=== PATIENT | female | born 1945 | race Caucasian/White ===

== ENCOUNTER → 2017-10-15 08:19 | Outpatient (CLI) | payer MEDICARE, SELFPAY ==
--- NOTE | 2017-10-15 08:22 | HPBI_ITS ---
MAMMOGRAPHY - BILATERAL SCREENING REASON FOR EXAM: Female, 72 years old. Routine annual screening examination. PERTINENT HISTORY: Sister with breast cancer. Aunt with breast cancer. TECHNIQUE: Digital bilateral breast jose (3D mammographic acquisition) in the CC and MLO projections. 2-D mediolateral oblique (MLO) and craniocaudad (CC) views of both breasts were obtained. CAD: Full Field Digital Mammography with Computer Added Detection was performed. COMPARISON: Comparison is made with prior study dated September 30, 2016 and April 27, 2012. FINDINGS: Breast Composition: The breasts are almost entirely fatty. There are no dominant masses or suspicious calcifications. No other significant abnormalities are identified. There has been no significant change since the prior study. HPBI/SCREENING MAMM (CAD), BILAT IMPRESSION: Stable bilateral screening mammogram. Yearly follow-up mammogram recommended. (A) ASSESSMENT CATEGORY: BIRADS Category 1: Negative. A letter regarding these results will be sent to the patient by the facility within 30 days. Approximately 10% of breast cancers are not detected by mammography. A normal mammogram should not delay biopsy of a clinically suspicious abnormality. [id number] Electronically Signed: Mario Mishra MD at 14:05 EST Tel [phone], Service support ,
== END ==
PROVIDERS: Family Provider Nurse Practitioner; PCP Nurse Practitioner; Visit Provider Nurse Practitioner
DX: Z12.31 Encounter for screening mammogram for malignant neoplasm of breast (principal)
CPT/HCPCS: 77063; 77067

== ENCOUNTER → 2019-01-03 | Outpatient (CLI) | payer MEDICARE, SELFPAY ==
--- NOTE | 2019-01-03 07:40 | CT_ITS ---
STUDY: CT ABDOMEN WITH AND WITHOUT CONTRAST REASON FOR EXAM: Female, 73 years old. LIVER LESION-3 PHASE LIVER DONE, HTN, ASTHMA, SURG-TUBAL LIGATION, HYSTER, BRIDGER RADIATION DOSAGE (If Supplied By Facility): CTDIvol = ( 19.98 ) mGy, DLP = ( 2098.10 ) mGycm TECHNIQUE: Transaxial images were obtained pre and post I.V. administration of 100 IV Isovue 300, and oral contrast. Sagittal and coronal images were reconstructed. Individualized dose optimization techniques were used for this CT. COMPARISON: None. FINDINGS: The visualized lung bases are unremarkable. The visualized portions of the heart are within normal limits. There are 2 low-attenuation lesions in the liver located respectively in segment #7 and segment #5 measuring respectively 3.8 x 2.8 cm and 1.7 x 1.5 cm. These lesions have enhancement pattern consistent with benign hemangiomas. There is non-visualization of the gallbladder, which may be secondary to either contraction or a prior cholecystectomy. Normal spleen. Normal pancreas. Normal bilateral adrenal glands. Normal right kidney. There is a cyst in left kidney measures 1 cm. Normal visualized stomach. Normal small intestine. Normal colon. The appendix is visualized and appears normal. Normal abdominal aorta. Normal inferior vena cava. Normal retroperitoneum. Normal abdominal wall. Normal osseous structures. CT/Abdomen W/WO IV Contrast IMPRESSION: 2 enhancing lesions in the liver consistent with hemangiomas. There is no evidence of neoplasm. Electronically Signed: Jeremias Baxter, at 2:15 EDT Tel , Service support ,
== END | disposition home or self-care (01) ==
LOC: CT 07:33
PROVIDERS: Family Provider Nurse Practitioner; PCP Nurse Practitioner; Referring Provider Nurse Practitioner; Visit Provider Nurse Practitioner
DX: K76.9 Liver disease, unspecified (principal)
CPT/HCPCS: 74170; Q9967; A4216

== ENCOUNTER → 2019-09-25 07:56 | Outpatient (CLI) | payer MEDICARE, SELFPAY ==
--- NOTE | 2019-09-25 07:59 | CT_ITS ---
STUDY: CT ABDOMEN AND PELVIS WITH CONTRAST REASON FOR EXAM: Female, 74 years old. IBS, HX BLEEDING ULCER RADIATION DOSAGE (If Supplied By Facility): CTDIvol = ( 20.12 ) mGy, DLP = ( 927.74 ) mGycm TECHNIQUE: Transaxial images were obtained from the dome of the diaphragm to the symphysis pubis with oral contrast. Oral and amp; IV Gastrografin and amp; 100mL Isovue-300 was administered. Sagittal and coronal images were reconstructed. Individualized dose optimization techniques were used for this CT. COMPARISON: 04/05/2019 CT scan abdomen FINDINGS: The visualized lung bases are unremarkable. There is partial visualization of a postoperative focus within the heart at the level of the left atrium and ventricle. There is mild intrahepatic duct dilatation. There is a stable low attenuating mass with peripheral enhancement measuring 2.7 x 3.5 cm compatible with a stable hemangioma. There is a similar appearing low attenuating focus within the mid aspect of the right hepatic lobe also stable since prior study. There is non-visualization of the gallbladder, which may be secondary to either contraction or a prior cholecystectomy. Normal spleen. Normal pancreas. Normal bilateral adrenal glands. Normal right kidney. There is an exophytic left renal cyst stable since prior study measuring 9.1 mm. There is a decompressed mildly thick-walled appearance of the stomach. There are minimally distended loops of small bowel. There is mild to moderate stool in the colon. There is contrast in the proximal large bowel. There is a herniation of the small bowel into the infra right side umbilical soft tissues though a small opening that may measure 1.6 cm without evidence of obstruction. This was not seen on the prior study as the prior study was a CT scan of the abdomen only. The appendix is visualized and appears normal. There is partial calcification of the distal aorta and right common iliac artery. Normal inferior vena cava. There is a mild amrik mesentery or fatty infiltrated appearance of the mesentery with minimal edema and a few small stable lymph nodes. Normal urinary bladder. There is absence of the uterus consistent with a prior hysterectomy. Postoperative change in the left side of the pelvis with multiple metallic clips. There is a centrally located fatty umbilical and a right to midline small bowel hernia without evidence of obstruction. The small bowel that extends into this focus measures 2.2 x 1.8 cm. There is multilevel disc space narrowing at L5-S1 there is a broad disc bulge facet arthropathy mild neural foramina narrowing. There is degenerative change of the SI joints. CT/Abdomen/Pelvis WITH Contrast IMPRESSION: Nonspecific mild thick-walled appearance of the stomach which may represent decompression and/or potentially gastritis. There is a small bowel herniation at the level of the right to midline infra umbilical soft tissue without evidence of obstruction. Recommend appropriate follow-up. See image numbers 73 series 2 axial views. Status post hysterectomy postoperative change. Status post cholecystectomy. Benign-appearing stable hemangiomas in the liver. Degenerative change of the thoracolumbar spine. Electronically Signed: Montserrat Alanis MD at 18:07 EST Tel , Service support ,
[2019-09-25 10:06] LABS: CREATININE FINGERSTICK 1.3 mg/dL (0.55-1.02)
== END ==
PROVIDERS: Family Provider Nurse Practitioner; PCP Nurse Practitioner; Referring Provider Nurse Practitioner; Visit Provider Nurse Practitioner
DX: K58.9 Irritable bowel syndrome, unspecified (principal)
CPT/HCPCS: 74177; Q9967

== ENCOUNTER → 2020-12-06 08:28 | Outpatient (CLI) | payer MEDICARE, SELFPAY ==
--- NOTE | 2020-12-06 08:32 | CT_ITS ---
STUDY: CT BRAIN WITHOUT CONTRAST REASON FOR EXAM: Female, 75 years old. Fall one week ago. RADIATION DOSAGE (If Supplied By Facility): CTDIvol = ( 44.99 ) mGy, DLP = ( 745.49 ) mGycm TECHNIQUE: Transaxial CT imaging of the brain was performed without administration of intravenous contrast material. Individualized dose optimization techniques were used for this CT. COMPARISON: No relevant priors. FINDINGS: Normal soft tissue structures. Normal calvarium. There is mild cerebral atrophy with widening of the extra-axial spaces and ventricular dilatation. There are areas of decreased attenuation within the white matter tracts of the supratentorial brain, consistent with microvascular disease changes. Normal basal ganglia and thalami. Normal brainstem. There is mild cerebellar atrophy. There is no intracranial hemorrhage. There are no findings of an acute ischemic infarction. Atherosclerotic plaque formation of the cavernous portions of the internal carotid arteries bilaterally. Partial opacification of the left sphenoid sinus. 1 cm polyp or mucosal retention cyst at the base of the left maxillary sinus. CT/Brain/Head without Contrast IMPRESSION: Chronic involutional changes of the brain. Electronically Signed: Mario Mishra MD at 10:27 EDT , Service support ,
== END ==
PROVIDERS: PCP Nurse Practitioner; Referring Provider Nurse Practitioner; Visit Provider Nurse Practitioner
DX: R27.0 Ataxia, unspecified (principal); W19.XXXA Unspecified fall, initial encounter
CPT/HCPCS: 70450

== ENCOUNTER → 2021-03-26 11:39 | Outpatient (CLI) | payer MEDICARE, SELFPAY ==
--- NOTE | 2021-03-26 11:40 | BD_ITS ---
STUDY: DUAL ENERGY X-RAY ABSORPTIOMETRY / DXA REASON FOR EXAM: Female, 76 years old. [id number]. Patient is postmenopausal. Loss of height. TECHNIQUE: Bone Mineral Density (BMD) measurements of lumbar spine and bilateral hips were obtained. COMPARISON: Comparison is made with prior examination dated 09/30/2016. FINDINGS: Lumbar Spine (L1-L4): g/cm2 (0.686) / T-score (-3.4) / Z-score (-0.8) Findings are suggestive of osteoporosis with a high fracture risk. Left Femur Total: g/cm2 (0.699) / T-score (-2.0) / Z-score (-0.1) Left Femoral Neck: g/cm2 (0.496) / T-score (-3.2) / Z-score (-1.0) Right Femur Total: g/cm2 (0.692) / T-score (-2.1) / Z-score (-0.2) Right Femoral Neck: g/cm2 (0.479) / T-score (-3.3) / Z-score (-1.2) The T-Scores on the most recent prior examination were: Lumbar Spine (L1-L4): There has been worsening of bone density since the previous examination. Left Femur Total: which represents a worsening of 0.3%. Right Femur Total: which represents an improvement of 1.4%. BD/Dexa Bone Density Study IMPRESSION: The patient is considered osteoporotic as outlined below according to World Mario Organization (WHO) criteria with a moderate fracture risk. There has been worsening of bone density since the previous examination. Reference Information: The T-score is the number of standard deviations above or below the standard which is normal for young adults at their peak bone mineral density. The World Health Organization (WHO) interprets the T-scores as follows: Above -1 Normal bone density Between -1 and -2.5 Osteopenia Equal to / or below -2.5 Osteoporosis As a practical clinical guideline, osteopenia may be graded as follows: Mild -1 through -1.5 Moderate -1.6 through -2.0 Severe -2.1 through -2.4 The Z-score is the number of standard deviations above or below age-matched controls. A Z-score of less than -1.5 would be considered abnormal. References: 1. NIH Osteoporosis and Related Bone Diseases www osteo.org 2. International Society for Clinical Densitometry www iscd.org 3. National Osteoporosis Foundation www nof.org Electronically Signed: Mario Mishra MD at 14:56 EDT , Service support ,
--- NOTE | 2021-03-26 11:42 | BI_ITS ---
MAMMOGRAPHY - BILATERAL SCREENING REASON FOR EXAM: Female, 76 years old. Routine annual screening examination. PERTINENT HISTORY: Screening TECHNIQUE: Digital bilateral breast jagruti (3D mammographic acquisition) in the CC and MLO projections. 2-D mediolateral oblique (MLO) and craniocaudad (CC) views of both breasts were obtained. CAD: Full Field Digital Mammography with Computer Added Detection was performed. COMPARISON: 10/15/2018 FINDINGS: Breast Composition: Scattered There are no dominant masses or suspicious calcifications. No other significant abnormalities are identified. BI/SCRN MAMM (CAD)W/JAGRUTI BILAT IMPRESSION: Stable bilateral screening mammogram. Yearly follow-up mammogram recommended. (A) ASSESSMENT CATEGORY: BIRADS Category 1: Negative. A letter regarding these results will be sent to the patient by the facility within 30 days. BR1 Approximately 10% of breast cancers are not detected by mammography. A normal mammogram should not delay biopsy of a clinically suspicious abnormality. [id number] Electronically Signed: Addison Christopher DO at 13:55 EDT Tel , Service support ,
== END ==
PROVIDERS: PCP Nurse Practitioner; Visit Provider Nurse Practitioner
DX: Z12.31 Encounter for screening mammogram for malignant neoplasm of breast (principal); Z78.0 Asymptomatic menopausal state
CPT/HCPCS: 77063; 77067; 77080

== ENCOUNTER → 2022-03-30 | Outpatient (CLI) | payer MEDICARE, SELFPAY ==
--- NOTE | 2022-03-30 08:46 | BI_ITS ---
MAMMOGRAPHY - BILATERAL SCREENING REASON FOR EXAM: Female, 77 years old. Routine annual screening examination. PERTINENT HISTORY: Sister with breast cancer. Aunt with breast cancer. TECHNIQUE: Digital bilateral breast jagruti (3D mammographic acquisition) in the CC and MLO projections. 2-D mediolateral oblique (MLO) and craniocaudad (CC) views of both breasts were obtained. CAD: Full Field Digital Mammography with Computer Added Detection was performed. COMPARISON: Comparison is made with prior study 03/26/2021 and 10/15/2017. FINDINGS: Breast Composition: There are scattered areas of fibroglandular density. There are no dominant masses or suspicious calcifications. Stable small benign-appearing bilateral axillary lymph nodes. No other significant abnormalities are identified. There has been no significant change since the prior study. BI/SCRN MAMM (CAD)W/JAGRUTI BILAT IMPRESSION: Stable bilateral screening mammogram. Yearly follow-up mammogram recommended. (A) ASSESSMENT CATEGORY: BIRADS Category 2: Benign. A letter regarding these results will be sent to the patient by the facility within 30 days. Approximately 10% of breast cancers are not detected by mammography. A normal mammogram should not delay biopsy of a clinically suspicious abnormality. [id number] Electronically Signed: Mario Mishra MD at 11:08 EDT ,
== END | disposition home or self-care (01) ==
LOC: OPBI 08:43
PROVIDERS: PCP Nurse Practitioner; Referring Provider Nurse Practitioner Family; Visit Provider Nurse Practitioner Family
DX: Z12.31 Encounter for screening mammogram for malignant neoplasm of breast (principal)
CPT/HCPCS: 77063; 77067

== ENCOUNTER 2022-06-24 10:38 | Emergency (ER) | payer MEDICARE, SELFPAY ==
[2022-06-24 10:40] VITALS: BP 144/94; PULSE 76; RESP 16; TEMP 36.4; O2SAT 100; BMI 32.1
--- NOTE | 2022-06-24 11:01 | RAD_ITS ---
STUDY: X-RAY - LEFT HUMERUS REASON FOR EXAM: Female, 77 years old. Pain TECHNIQUE: 2 view(s) of the humerus. COMPARISON: None. FINDINGS: Normal visualized humerus. There is no demonstrated fracture or osseous destructive process. There is no demonstrated soft tissue abnormality. RAD/Humerus min 2 Views IMPRESSION: Normal x-ray examination of the humerus. Electronically Signed: Adrian Forrester MD at 12:31 EDT ,
--- NOTE | 2022-06-24 11:03 | EDS_ITS ---
HPI History of Present Illness Chief Complaint: Other, Pain/Inj Detail of Chief Complaint: Left arm pain Informant: patient Onset/Context/Timing Onset: Days (2 days) Context: Gradual Onset Current Severity: Moderate Maximum Severity: Moderate Narrative Narrative: Patient presents with left shoulder, arm, elbow pain that started Wednesday evening. She states he did not do anything strenuous on Wednesday. Area is painful to the touch. She has some pain up into her chest with some intermittent shortness of breath. She is a history of an aortic valve replacement and is on Coumadin. She states her INR was 3.9 on Wednesday. She has not taken anything for pain. [facility] Medical History High cholesterol Hx of gastroesophageal reflux (GERD) Home Medications hydrocodone-acetaminophen 5-325mg 5mg-325mg 1 tab PO Q6H PRN pain 3 days #10 tabs 06/24/22 [Rx Last Taken Unknown] Allergy/AdvReac Type Severity Reaction Status Date / Time adenosine AdvReac Upset Verified 06/24/22 10:42 Stomach Surgical History H/O aortic valve replacement Social History Smoking Status: Never smoker ROS ROS ED Constitutional Constitutional ED: Denies chills or fever(s) Eyes Eyes: Denies change in vision or discharge from eye(s) ENT ENT ED: Denies discharge from eye(s), rhinorrhea or sore throat Cardiovascular Cardiovascular: Reports chest pain; Denies palpitations Respiratory/Chest Respiratory/Chest: Reports dyspnea; Denies cough Gastrointestinal Gastrointestinal: Denies abdominal pain, nausea or vomiting Genitourinary Genitourinary ED: Denies dysuria Musculoskeletal Musculoskeletal: Reports extremity pain; Denies back pain Integumentary Denies Abrasions or rash Neurologic Neurologic: Reports weakness; Denies headache(s) Psychiatric Psychiatric: Denies anxiety or depression Allergic/Immunologic Allergic/Immunologic ED: Denies lip swelling or urticaria EXAM Physical Exam Const Vital Signs: 06/24/22 10:40 06/24/22 12:28 Temperature 97.6 F L Temperature Source Temporal Pulse Rate 76 99 Respiratory Rate 16 16 Blood Pressure 144/94 H 138/82 H Blood Pressure Mean 110 100 Pulse Ox 100 94 Oxygen Delivery Method Room Air Room Air Positive well nourished and well developed General Appearance ED: well developed HEENT Reports normocephalic and head/scalp atraumatic Eyes PERRL and EOMs intact bilaterally Neck supple Chest Wall inspection of chest normal Chest Narrative: Mild tenderness palpation in the left upper chest wall. Resp normal respiratory effort and clear to auscultation bilaterally Cardio regular rate and regular rhythm GI non-tender Palpation: soft Extremity Extremity Narrative: Tenderness outpatient on the left shoulder and left elbow. Slight decreased strength with left hand grasp. Good distal pulses and sensation. Neuro oriented x3 and no sensory deficits noted Sensorium / Orientation: alert Psych mental status grossly normal Skin no rashes or lesions noted MDM MDM MDM Narrative Medical decision making narrative: Patient was given fentanyl for pain. EKG, chest x-ray, lab work obtained. Left humerus x-ray ordered. Lab Data Attestation: I reviewed the patient's lab results. Labs: Laboratory Results - last 24 hr 06/24/22 06/24/22 06/24/22 11:30 11:30 11:30 WBC 12.7 H RBC 4.05 L Hgb 11.4 L Hct 35.8 L MCV 88.4 MCH 28.1 MCHC 31.8 L RDW Std Deviation 44.5 H RDW Coeff of [place] 13.7 Plt Count 265 MPV 10.5 Immature Gran % (Auto) 0.400 Neut % (Auto) 81.9 H Lymph % (Auto) 9.7 L Door % (Auto) 6.7 Eos % (Auto) 1.0 Baso % (Auto) 0.3 Absolute Neuts (auto) 10.4 H Absolute Lymphs (auto) 1.24 Nucleated RBC % 0 PT 27.7 H INR 2.6 Sodium 137 Potassium 4.0 Chloride 104 Carbon Dioxide 28.0 Anion Gap 5 BUN 14 Creatinine 1.26 H Estim Creat Clear Calc 27.77 Est GFR (MDRD) Af Amer 53 L Est GFR (MDRD) Non-Af 44 L BUN/Creatinine Ratio 11.1 Glucose 109 H Calcium 9.3 Troponin I High Sens 10 Radiography Chest X-Ray - ED: 1 View, Read by ED Physician, Chronic Changes and No Infiltrates Diagnostic Testing: Clinical Impression(s) from Imaging Studies Humerus X-Ray 06/24/22 11:01 IMPRESSION: Normal x-ray examination of the humerus. Electronically Signed: Adrian Forrester MD at 12:31 EDT , Chest X-Ray 06/24/22 12:12 IMPRESSION: Chronic interstitial changes, no superimposed acute pulmonary process Electronically Signed: Adrian Forrester MD at 12:31 EDT , EKG Initial EKG: Attestation: I personally reviewed and interpreted this EKG as follows: Interpretation: Sinus Tachycardia (Sinus tach at 101 with no acute ischemia.) Treatment and Re-Evaluation Narrative: CBC reveals mild white count of 12.7 with 81% neutrophils. INR is therapeutic at 2.6. Chemistry studies unremarkable. Troponin is normal at 10. Chest x-ray per my interpretation reveals no focal infiltrate. Radiology interpretation is reviewed. Left humerus x-rays per my interpretation show no acute abnormality. EKG reveals no ischemia. On repeat evaluation patient states she did not really notice any significant difference in her pain. She is given a dose of morphine. This time she reports mild improvement. She has reproducible pain over the left upper arm. She will be given a sling and prescription for [place]. Return instructions provided. Discharge Plan Triage Chief Complaint: Other, Pain/Inj ED Provider: Hattie Nicole Dx/Rx/DC Orders Clinical Impression: Arm pain, left Instructions: ED Muscle Strain, Extremity Prescriptions: New hydrocodone-acetaminophen 5-325 mg tablet 1 tab PO Q6H PRN (Reason: pain) 3 Days Qty: 10 0RF Primary Care Provider: Angelita Duffy Referrals: Angelita Duffy NP-C [Primary Care Provider] - 5-7 Days Abeba Rosa NP, INTERNATIONAL MARKETING COORDINATOR-C [Non-Staff] - Disposition Disposition: Home, Self Care
--- NOTE | 2022-06-24 11:05 | ED.RN ---
RESPIRATORY THERAPY NOTIFIED BY THIS RN OF NEED FOR EKG ON TRIAGE.
[2022-06-24 11:46] LABS: Absolute Lymphocyte Count 1.24 X10^3/uL (0.83-4.51); Absolute Neutrophil Count 10.4 X10^3/uL (2.0-7.7); Basophil# 0.04 X10^3/uL; Basophil% 0.3 % (0-1); Eosinophil# 0.13 X10^3/uL; Hematocrit 35.8 % (37-47); Hemoglobin 11.4 g/dL (12.0-15.0); Lymphocyte # 1.24 X10^3/ul (0.83-4.51); Lymphocyte % 9.7 % (19-41); Mean Corp Hgb Conc 31.8 g/dL (32-36); Mean Corpuscular Hgb 28.1 pg (27.0-32.0); Mean Corpuscular Volume 88.4 fL (81-99); Mean Platelet Vol. 10.5 fl (6.2-12.0); Monocyte# 0.85 X10^3/uL; Monocyte% 6.7 % (0-10); NRBC Flagged by Analyzer 0 % (0-5); Neutrophil # 10.41 X10^3/uL (2.7-7.7); Neutrophil % 81.9 % (47-70); Platelet Count 265 K/mm3 (150-450); RBC Distribution Width CV 13.7 % (11.6-14.6); RBC Distribution Width SD 44.5 fl (35.1-43.9); Red Blood Count 4.05 M/mm3 (4.2-5.4); White Blood Count 12.7 K/mm3 (4.4-11.0)
[2022-06-24 11:55] LABS: International Normalized Ratio 2.6; Prothrombin Time (Protime)PT. 27.7 SECONDS (11.7-14.9)
[2022-06-24 12:05] LABS: Anion Gap 5 (5-15); BUN 14 mg/dL (7-18); BUN/Creat Ratio 11.1 RATIO (10-20); Calcium,Total 9.3 mg/dL (8.5-10.1); Chloride 104 mmol/L (98-107); Creatinine, Serum 1.26 mg/dL (0.55-1.02); EST Glomerular Filtration Rate 44 mL/min (>60); Est Glom Filt Rate - Afr Amer 53 mL/min (>60); Estimated Creatinine Clearance 27.77 ml/min; Glucose 109 mg/dL (74-106); Sodium Level 137 mmol/L (136-145); Troponin-I HS 10 pg/mL (3.0-54.0)
--- NOTE | 2022-06-24 12:12 | RAD_ITS ---
STUDY: X-RAY CHEST REASON FOR EXAM: Female, 77 years old. Atypical chest pain TECHNIQUE: Single AP portable view of the chest. COMPARISON: None. FINDINGS: Chronic interstitial changes without a superimposed acute pulmonary process. There is no demonstrated pleural abnormality. Sternal cerclage wires and vascular clips are present from a prior sternotomy and coronary artery bypass graft procedure (CABG). Normal mediastinum and [place]. Normal visualized pulmonary arteries. Normal visualized aortic arch and descending thoracic aorta. There are diffuse degenerative changes of the visualized thoracic spine. There is degenerative osteoarthritis of the bilateral shoulders. There is no demonstrated abnormality of the visualized soft tissue structures of the upper abdomen. RAD/Chest 1 View (Portable) IMPRESSION: Chronic interstitial changes, no superimposed acute pulmonary process Electronically Signed: Adrian Forrester MD at 12:31 EDT ,
[2022-06-24] MEDS: fentaNYL 100 MCG/2 ML Ampul 25 MCG IV (12:23)
[2022-06-24 12:28] VITALS: BP 138/82; PULSE 99; RESP 16; O2SAT 94
[2022-06-24] MEDS: Morphine 4 MG/ML Syringe IV (13:00)
[2022-06-24 13:42] VITALS: BP 113/62; PULSE 74; RESP 15; O2SAT 98
== END 2022-06-24 13:43 | disposition home or self-care (01) ==
PROVIDERS: Emergency Provider Emergency Medicine; PCP Nurse Practitioner Family; Visit Provider Emergency Medicine
DX: M79.602 Pain in left arm (principal); R06.02 Shortness of breath; E78.00 Pure hypercholesterolemia, unspecified; R07.9 Chest pain, unspecified
CPT/HCPCS: 71045; 73060; 80048; 84484; 85025; 85610; 93005; 96374; 96375; 99284; A4216

== ENCOUNTER 2022-07-15 09:52 | Outpatient (CLI) | payer MEDICARE, SELFPAY ==
[2022-07-15 12:28] LABS: Hematocrit 38.2 % (37-47); Hemoglobin 11.9 g/dL (12.0-15.0); Mean Corp Hgb Conc 31.2 g/dL (32-36); Mean Corpuscular Hgb 27.7 pg (27.0-32.0); Mean Platelet Vol. 10.9 fl (6.2-12.0); Platelet Count 287 K/mm3 (150-450); RBC Distribution Width CV 13.8 % (11.6-14.6); RBC Distribution Width SD 44.7 fl (35.1-43.9); Red Blood Count 4.29 M/mm3 (4.2-5.4); White Blood Count 8.6 K/mm3 (4.4-11.0)
[2022-07-15 13:12] LABS: ALB/GLOB Ratio 1.1 RATIO (0.9-2.4); AST(SGOT) 27 U/L (15-37); Alanine Aminotransfer ALT/SGPT 22 U/L (13-56); Albumin, Serum 3.8 g/dL (3.2-5.0); Alkaline Phosphatase 166 U/L (45-117); Anion Gap 7 (5-15); BUN 20 mg/dL (7-18); BUN/Creat Ratio 14.2 RATIO (10-20); Calcium,Total 9.3 mg/dL (8.5-10.1); Chloride 102 mmol/L (98-107); Creatinine, Serum 1.41 mg/dL (0.55-1.02); EST Glomerular Filtration Rate 38 mL/min (>60); Est Glom Filt Rate - Afr Amer 46 mL/min (>60); Ferritin 86 ng/mL (8-252); Globulin 3.4 g/dL (2.2-4.2); Glucose 122 mg/dL (74-106); Iron 61 ug/dL (50-170); Iron Binding Capacity,Total 313 ug/dL (250-450); Potassium 4.1 mmol/L (3.5-5.1); Protein, Total 7.2 g/dL (6.4-8.2); Sodium Level 141 mmol/L (136-145); T4 Free Direct 0.94 ng/dL (0.76-1.46); Thyroid Stim Hormone (TSH) 3.89 uIU/mL (0.358-3.74)
== END 2022-07-15 23:59 | disposition home or self-care (01) ==
LOC: MTLAB 09:56
PROVIDERS: PCP Nurse Practitioner Family
DX: E03.9 Hypothyroidism, unspecified (principal); D50.9 Iron deficiency anemia, unspecified
CPT/HCPCS: 36415; 80053; 82728; 83540; 83550; 84439; 84443; 85027

== ENCOUNTER → 2022-12-07 | Outpatient (CLI) | payer MEDICARE, SELFPAY ==
--- NOTE | 2022-12-07 07:41 | CT_ITS ---
STUDY: CT BRAIN WITHOUT CONTRAST REASON FOR EXAM: Female, 77 years old. Forgetfulness RADIATION DOSAGE (If Supplied By Facility): CTDIvol = ( 44.99 ) mGy, DLP = ( 762.36 ) mGycm TECHNIQUE: Transaxial CT imaging of the brain was performed without administration of intravenous contrast material. Individualized dose optimization techniques were used for this CT. COMPARISON: Comparison is made with prior study dated December 06, 2020. FINDINGS: Normal soft tissue structures. Normal calvarium. There is mild cerebral atrophy with widening of the extra-axial spaces and ventricular dilatation. There are areas of decreased attenuation within the white matter tracts of the supratentorial brain, consistent with microvascular disease changes. Normal basal ganglia and thalami. Normal brainstem. Normal cerebellum. There is no intracranial hemorrhage. There are no findings of an acute ischemic infarction. There is opacification of the left sphenoid sinus. CT/Brain/Head without Contrast IMPRESSION: Chronic involutional changes of the brain. Opacification of the left sphenoid sinus. Electronically Signed: Mario Mishra MD at 12:46 EDT ,
== END | disposition home or self-care (01) ==
LOC: CT 07:39
PROVIDERS: PCP Nurse Practitioner Family; Visit Provider Nurse Practitioner Family
DX: R68.89 Other general symptoms and signs (principal)
CPT/HCPCS: 70450

== ENCOUNTER 2022-12-23 09:00 | Outpatient (RCR) | payer MEDICARE, SELFPAY ==
--- NOTE | 2022-11-04 09:54 | HP.PTEVAL_ITS ---
Patient's Visit Information LORIN GARCÍA is a 77 year old F referred to Physical Therapy by Angelita Duffy, TWILA-C with a diagnosis of Recurrent falls. Date of Evaluation: 11/04/22 Physical Therapist: Augusto Duffy, DPT, OCS, CSCS - Visit Plan Frequency: 2x /Week Duration: 4-6 Weeks Plan: 2x/week for 3-6 for. 1. teach sink strength ex for HEP. 2. work on balance ex weight shifting, head movement, VOR and bendingand progress to HEp with pics when safety allows. start 3 weeks adn try to get I by end. Pt to use a cane in the meantime. - Subjective [place] been falling down. Can't tell it is gonna happen and just drops. Feels like she might be getting migraine MACE and then she doesn't. This happens 2-3x/ month. No major injuries yet. Has walker at home but doesn't feel like she needs it. Balance is good outside of these episodes. has cane also which she uses it sometimes. No spinning. No neuropathy that she knows of. Sleeps well with meds. 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 Does housework and basic ADLS that she has to do in small chunks. Gets tired easily. Hobbies include reading and word searches. Had covid bad 2 yrs ago. Gets tired since then. No regular exercise but does try to walk sometimes and keep legs moving. - Objective Walks slowly with poor weight shifting but I back to PT on firm flat surface. Trasnfers are I bed and chair albeit slow. Steps are reciprocal with two rails and lots of pulling with UE, poor forward weight shift. coordination to reciprocal toe and heel and hand tapping are poor. Takes patient extra time to follow instructions. reflexes 2/3 patella and achilles. Sensation LE WNL to gross light touch. Strength ankles 4-, knees 4- and hip flexion 3, abd 3+, ext 3 B LE without myotomal problems. flexibility is poor in HS and gastrocs at -40 90/90 test adn -3 AROM DF, other AROM LE WFL. - Balance/Special Test Scores Functional Gait Assessment Score: 21 % Disability: 30.0000 Lower Extremity Functional Score: 24 TUG Test Time Seconds: 17 30 Second Chair Rise Test Seconds: 9 - Goals Goal 1:: FGA Goal Time Frame: 4-6 Weeks Goal 2:: Pt I in appropriate HEp to limit fall risk for strength adn balance Goal Time Frame: 4-6 Weeks Goal 3:: TUG score 10 seconds Goal Time Frame: 4-6 Weeks Goal 4:: 30 sec sit to stand score 13 Goal Time Frame: 4-6 Weeks - Rehabilitation Potential Physical Therapy Diagnosis: Imbalance and weakness. Rehabilitation Potential: Fair - Anticipated Interventions Patient/Client Instruction: Educate patient on: Condition, Plan of Care For the Purpose of:: To improve nutrient delivery to tissue, To increase tolerance to activity/condition/position, To improve performance and independence with ADL's, To improve gait and locomotor functions Therapeutic Exercise to Include: Strength training, Balance training, Postural training, Flexibilty training, Passive ROM, Active ROM For the Purpose of:: To improve nutrient delivery to tissue, To improve muscle performance and motor function, To increase tolerance to activity/condition/position, To improve ability of physical actions for home/community/work/leisure, To improve gait and locomotor functions, To improve safety with gait Thank you for the opportunity to evaluate your patient. For Medicare and Medicare HMO plans, please review the plan of care and approve it. It will need to be FAXED BACK to us at [phone] for Medicare purposes. For Medicare only, by signing this I certify the plan of care. Please let me know if there are questions or concerns regarding this plan of care. Physician Signature: ___Date:
--- NOTE | 2022-12-23 09:49 | HP.PTDCSUM_ITS ---
It has been my pleasure to treat LORIN GARCÍA referred by Angelita Duffy, [employer], with the diagnosis of Recurrent falls for a total of 13 visit(s). Discharge Date: 12/23/22 Please see the following information for a summary of their discharge status. Subjective: I think it is helping alot. I feel better with walking and bending. Sleeping better. doing daily HEP. To doctor at end of month. Still fell one time last week. LB Pain Intensity (Out of 10): 5 % Improvement: 50 Objective/Function: +1 30 sec test. FGA is the same. Pt wants to continue to use nustep but is I with it. Willing to continue HEP and f/u with doctor end of month. recommended slowing down and using wh walker which she has at home for safety since she is stillf alling, questionable if she will be compliant with walker but will continue HEP daily. Goal 1:: FGA Goal Progress: Not Progressing Goal 2:: Pt I in appropriate HEp to limit fall risk for strength adn balance Goal Progress: Goal Met Goal 3:: TUG score 10 seconds Goal Progress: Goal Met Goal 4:: 30 sec sit to stand score 13 Goal Progress: Goal Met Plan: d/c to HEP If there are questions or concerns regarding this patient's physical therapy, please feel free to call me at [phone]. Thank you for the referral of this patient. Sincerely, Augusto Duffy, DPT, OCS, CSCS Balance/Gait/Functional tests - Balance/Special Test Scores Functional Gait Assessment Score: 23 % Disability: 23.3400 Lower Extremity Functional Score: 31 TUG Test Time Seconds: 9.84 Tug Test: <10 sec.=free mobile 30 Second Chair Rise Test Seconds: 13
== END 2022-12-23 19:00 | disposition home or self-care (01) ==
LOC: PT 09:00
PROVIDERS: PCP Nurse Practitioner Family; Referring Provider Nurse Practitioner Family; Visit Provider Nurse Practitioner Family
DX: R26.9 Unspecified abnormalities of gait and mobility (principal)
CPT/HCPCS: 97110; 97162; 97164; 97530

== ENCOUNTER → 2023-04-07 | Outpatient (CLI) | payer MEDICARE, SELFPAY ==
--- NOTE | 2023-04-07 08:43 | BI_ITS ---
MAMMOGRAPHY - BILATERAL SCREENING REASON FOR EXAM: Female, 78 years old. Routine annual screening examination. PERTINENT HISTORY: Sister with breast cancer. Aunt with breast cancer. TECHNIQUE: Digital bilateral breast jagruti (3D mammographic acquisition) in the CC and MLO projections. 2-D mediolateral oblique (MLO) and craniocaudad (CC) views of both breasts were obtained. CAD: Full Field Digital Mammography with Computer Added Detection was performed. COMPARISON: Comparison is made with prior study March 30, 2022 and March 26, 2021. FINDINGS: Breast Composition: There are scattered areas of fibroglandular density. There are no dominant masses or suspicious calcifications. No other significant abnormalities are identified. There has been no significant change since the prior study. BI/SCRN MAMM (CAD)W/JAGRUTI BILAT IMPRESSION: Stable bilateral screening mammogram. Yearly follow-up mammogram recommended. (A) ASSESSMENT CATEGORY: BIRADS Category 1: Negative. A letter regarding these results will be sent to the patient by the facility within 30 days. Approximately 10% of breast cancers are not detected by mammography. A normal mammogram should not delay biopsy of a clinically suspicious abnormality. [id number] Electronically Signed: Mario Mishra MD at 10:06 EDT ,
--- NOTE | 2023-04-07 09:11 | BD_ITS ---
STUDY: DUAL ENERGY X-RAY ABSORPTIOMETRY / DXA REASON FOR EXAM: Female, 78 years old. 733.00OsteoporosisBONE DENSITY REASON FOR EXAM TECHNIQUE: Bone Mineral Density (BMD) measurements of lumbar spine and bilateral hips were obtained. COMPARISON: Comparison is made with prior study dated March 26, 2021. FINDINGS: Lumbar Spine (L1-L4): g/cm2 (0.712) / T-score (-3.1) / Z-score (-0.5) Findings are suggestive of osteoporosis with a high fracture risk. Left Femur Total: g/cm2 (0.725) / T-score (-1.8) / Z-score (0.2) Left Femoral Neck: g/cm2 (0.525) / T-score (-2.9) / Z-score (-0.7) Right Femur Total: g/cm2 (0.699) / T-score (-2.0) / Z-score (0.0) Right Femoral Neck: g/cm2 (0.532) / T-score (-2.9) / Z-score (-0.6) The T-Scores on the most recent prior examination were: Lumbar Spine (L1-L4): There has been improvement of bone density since the previous examination. Left Femur Total: which represents an improvement of 3.8%. Right Femur Total: which represents an improvement of 1%. BD/Dexa Bone Density Study IMPRESSION: The patient is considered osteoporotic as outlined below according to World Mario Organization (WHO) criteria with a high fracture risk. There has been improvement of bone density since the previous examination. Reference Information: The T-score is the number of standard deviations above or below the standard which is normal for young adults at their peak bone mineral density. The World Health Organization (WHO) interprets the T-scores as follows: Above -1 Normal bone density Between -1 and -2.5 Osteopenia Equal to / or below -2.5 Osteoporosis As a practical clinical guideline, osteopenia may be graded as follows: Mild -1 through -1.5 Moderate -1.6 through -2.0 Severe -2.1 through -2.4 The Z-score is the number of standard deviations above or below age-matched controls. A Z-score of less than -1.5 would be considered abnormal. References: 1. NIH Osteoporosis and Related Bone Diseases www osteo.org 2. International Society for Clinical Densitometry www iscd.org 3. National Osteoporosis Foundation www nof.org Electronically Signed: Mario Mishra MD at 10:36 EDT ,
== END | disposition home or self-care (01) ==
LOC: OPBD 08:42
PROVIDERS: PCP Nurse Practitioner Family; Referring Provider Nurse Practitioner Family; Visit Provider Nurse Practitioner Family
DX: Z12.31 Encounter for screening mammogram for malignant neoplasm of breast (principal); M81.0 Age-related osteoporosis without current pathological fracture; Z80.3 Family history of malignant neoplasm of breast
CPT/HCPCS: 77063; 77067; 77080

== ENCOUNTER → 2023-06-18 | Outpatient (CLI) | payer MEDICARE, SELFPAY ==
[2023-06-18 12:05] LABS: Hematocrit 38.9 % (37-47); Hemoglobin 11.9 g/dL (12.0-15.0); Mean Corp Hgb Conc 30.6 g/dL (32-36); Mean Corpuscular Hgb 28.3 pg (27.0-32.0); Mean Corpuscular Volume 92.6 fL (81-99); Mean Platelet Vol. 11.2 fl (6.2-12.0); Platelet Count 267 K/mm3 (150-450); RBC Distribution Width CV 14.4 % (11.6-14.6); RBC Distribution Width SD 48.9 fl (35.1-43.9); White Blood Count 8.5 K/mm3 (4.4-11.0)
[2023-06-18 12:27] LABS: ALB/GLOB Ratio 0.9 RATIO (0.9-2.4); AST(SGOT) 28 U/L (15-37); Alanine Aminotransfer ALT/SGPT 21 U/L (13-56); Albumin, Serum 3.6 g/dL (3.2-5.0); Alkaline Phosphatase 174 U/L (45-117); Anion Gap 3 (5-15); BUN 19 mg/dL (7-18); BUN/Creat Ratio 13.5 RATIO (10-20); Calcium,Total 9.4 mg/dL (8.5-10.1); Chloride 109 mmol/L (98-107); Creatinine, Serum 1.41 mg/dL (0.55-1.02); EST Glomerular Filtration Rate 38 mL/min (>60); Est Glom Filt Rate - Afr Amer 46 mL/min (>60); Ferritin 29 ng/mL (8-252); Globulin 3.8 g/dL (2.2-4.2); Glucose 96 mg/dL (74-106); Iron 49 ug/dL (50-170); Iron Binding Capacity,Total 375 ug/dL (250-450); PERCENT IRON SATURATION 13.1 % (15.0-55.0); Potassium 4.6 mmol/L (3.5-5.1); Protein, Total 7.4 g/dL (6.4-8.2); Sodium Level 140 mmol/L (136-145)
[2023-06-18 12:28] LABS: Vitamin B12 703 pg/mL (211-911)
[2023-06-24 17:07] LABS: Methylmalonic Acid Bld 265 nmol/L (0-378)
== END | disposition home or self-care (01) ==
LOC: MTLAB 09:35
PROVIDERS: PCP Nurse Practitioner Family
DX: D50.9 Iron deficiency anemia, unspecified (principal)
CPT/HCPCS: 36415; 80053; 82607; 82728; 83540; 83550; 83921; 85027

== ENCOUNTER 2023-10-06 08:10 | Outpatient (CLI) | payer MEDICARE, SELFPAY ==
[2023-10-06 08:20] VITALS: BP 139/52; PULSE 90; RESP 16; TEMP 36.4; O2SAT 98
[2023-10-06] MEDS: DENOSUMAB 60 MG/ML SC (08:33)
== END 2023-10-06 08:11 | disposition home or self-care (01) ==
LOC: MEDOUTP 08:11
PROVIDERS: PCP Nurse Practitioner Family; Referring Provider Nurse Practitioner Family; Visit Provider Nurse Practitioner Family
DX: M81.0 Age-related osteoporosis without current pathological fracture (principal)
CPT/HCPCS: 96372; J0897

== ENCOUNTER → 2024-02-02 | Outpatient (CLI) | payer MEDICARE, SELFPAY ==
[2024-02-02 11:07] LABS: International Normalized Ratio 2.7; Prothrombin Time (Protime)PT. 28.3 SECONDS (11.7-14.9)
== END | disposition home or self-care (01) ==
LOC: LAB 10:27 → LABSPEC 10:27
PROVIDERS: PCP Nurse Practitioner Family; Referring Provider Nurse Practitioner Family; Visit Provider Nurse Practitioner Family
DX: I48.91 Unspecified atrial fibrillation (principal)
CPT/HCPCS: 85610

== ENCOUNTER 2024-04-05 08:08 | Outpatient (CLI) | payer MEDICARE, SELFPAY ==
[2024-04-05 08:15] VITALS: BP 142/69; PULSE 91; RESP 18; TEMP 36.1; O2SAT 98; BMI 30.2
[2024-04-05] MEDS: DENOSUMAB 60 MG/ML SC (08:19)
== END 2024-04-05 23:59 | disposition home or self-care (01) ==
LOC: MEDOUTP 08:08
PROVIDERS: PCP Nurse Practitioner Family; Referring Provider Nurse Practitioner Family; Visit Provider Nurse Practitioner Family
DX: M81.0 Age-related osteoporosis without current pathological fracture (principal); Z78.0 Asymptomatic menopausal state
CPT/HCPCS: 96372; J0897

== ENCOUNTER → 2024-04-25 | Outpatient (CLI) | payer MEDICARE, SELFPAY ==
--- NOTE | 2024-04-25 09:09 | BI_ITS ---
MAMMOGRAPHY - BILATERAL SCREENING REASON FOR EXAM: Female, 79 years old. Routine annual screening examination. PERTINENT HISTORY: Sister with breast cancer. Aunt with breast cancer. TECHNIQUE: Digital bilateral breast jagruti (3D mammographic acquisition) in the CC and MLO projections. 2-D mediolateral oblique (MLO) and craniocaudad (CC) views of both breasts were obtained. CAD: Full Field Digital Mammography with Computer Added Detection was performed. COMPARISON: Comparison is made with prior study dated April 07, 2023 and March 30, 2022. FINDINGS: Breast Composition: There are scattered areas of fibroglandular density. There are no dominant masses or suspicious calcifications. Stable small bilateral fat containing axillary lymph nodes. No other significant abnormalities are identified. There has been no significant change since the prior study. BI/SCRN MAMM (CAD)W/JAGRUTI BILAT IMPRESSION: Stable bilateral screening mammogram. Yearly follow-up mammogram recommended. (A) ASSESSMENT CATEGORY: BIRADS Category 2: Benign. A letter regarding these results will be sent to the patient by the facility within 30 days. Approximately 10% of breast cancers are not detected by mammography. A normal mammogram should not delay biopsy of a clinically suspicious abnormality. [id number] Electronically Signed: Mario Mishra MD at 13:35 EDT ,
== END | disposition home or self-care (01) ==
LOC: OPBI 09:08
PROVIDERS: PCP Nurse Practitioner Family; Referring Provider Nurse Practitioner Family; Visit Provider Nurse Practitioner Family
DX: Z12.31 Encounter for screening mammogram for malignant neoplasm of breast (principal); Z80.3 Family history of malignant neoplasm of breast
CPT/HCPCS: 77063; 77067

== ENCOUNTER 2024-07-14 15:25 | Outpatient (CLI) | payer MEDICARE, SELFPAY ==
[2024-07-14 17:53] LABS: Vitamin B12 490 pg/mL (211-911)
[2024-07-14 18:26] LABS: Ferritin 25 ng/mL (8-252); Iron 48 ug/dL (50-170); Iron Binding Capacity,Total 416 ug/dL (250-450); PERCENT IRON SATURATION 11.5 % (15.0-55.0); T4 Free Direct 0.86 ng/dL (0.76-1.46)
== END 2024-07-14 23:59 | disposition home or self-care (01) ==
LOC: MTLAB 15:26
PROVIDERS: PCP Nurse Practitioner Family; Referring Provider Nurse Practitioner Family; Visit Provider Nurse Practitioner Family
DX: E03.9 Hypothyroidism, unspecified (principal); E53.8 Deficiency of other specified B group vitamins; D50.9 Iron deficiency anemia, unspecified; E55.9 Vitamin D deficiency, unspecified
CPT/HCPCS: 36415; 82306; 82607; 82728; 82746; 83540; 83550; 84439; 84443

== ENCOUNTER 2024-10-04 08:19 | Outpatient (CLI) | payer MEDICARE, SELFPAY ==
[2024-10-04 08:24] VITALS: BP 150/71; PULSE 94; RESP 18; TEMP 35.8; O2SAT 97; BMI 30.2
[2024-10-04] MEDS: DENOSUMAB 60 MG/ML SC (08:40)
== END 2024-10-04 23:59 | disposition home or self-care (01) ==
LOC: MEDOUTP 08:21
PROVIDERS: PCP Nurse Practitioner Family; Referring Provider Nurse Practitioner Family; Visit Provider Nurse Practitioner Family
DX: M81.0 Age-related osteoporosis without current pathological fracture (principal)
CPT/HCPCS: 96372; J0897

== ENCOUNTER 2025-04-13 08:06 | Outpatient (CLI) | payer MEDICARE, SELFPAY ==
[2025-04-13 08:19] VITALS: BP 125/70; PULSE 103; RESP 16; TEMP 36.1; O2SAT 96; BMI 29.2
[2025-04-13] MEDS: DENOSUMAB 60 MG/ML SC (08:22)
== END 2025-04-13 23:59 | disposition home or self-care (01) ==
LOC: MEDOUTP 08:07
PROVIDERS: PCP Nurse Practitioner Family; Referring Provider Nurse Practitioner Family; Visit Provider Nurse Practitioner Family
DX: M81.0 Age-related osteoporosis without current pathological fracture (principal)
CPT/HCPCS: 96372; J0897

== ENCOUNTER → 2025-05-25 | Outpatient (CLI) | payer MEDICARE, SELFPAY ==
--- NOTE | 2025-05-25 12:00 | BI_ITS ---
EXAM: SCRN MAMM (CAD)W/JAGRUTI BILAT DATE: 05/25/2025 CLINICAL HISTORY: F, Age 80 y/o , POSTMENOPAUSAL SCREENING TECHNIQUE: Procedure Code: [id number] Modality: MG Procedure: SCRN MAMM (CAD)W/JAGRUTI BILAT COMPARISON: Prior exam(s) were compared. FINDINGS: TISSUE DENSITY: There are scattered areas of fibroglandular density. Bilateral Breast Mammographic Findings: No suspicious masses, calcifications or other abnormalities are identified. BI/SCRN MAMM (CAD)W/JAGRUTI BILAT IMPRESSION: No mammographic evidence of malignancy in either breast. OVERALL FINAL ASSESSMENT BI-RADS 1: NEGATIVE. RECOMMENDATION: Routine annual follow-up in 1 Year Additional Recommendation none A letter with findings and recommendations will be mailed to the patient. Reading Location: [id number]
== END | disposition home or self-care (01) ==
LOC: OPBI 11:34
PROVIDERS: PCP Nurse Practitioner Family; Referring Provider Nurse Practitioner Family; Visit Provider Nurse Practitioner Family
DX: Z12.31 Encounter for screening mammogram for malignant neoplasm of breast (principal)
CPT/HCPCS: 77063; 77067

== ENCOUNTER 2025-07-26 16:02 | Inpatient (IN) | payer MEDICARE, SELFPAY ==
[2025-07-26] VITALS (34 sets, daily range): BP systolic 121–152; BP diastolic 69–99; PULSE 105–143; RESP 18–33; TEMP 36.6; O2SAT 87–100; BMI 35.4; BMI 36.3
--- NOTE | 2025-07-26 16:17 | EDS_ITS ---
HPI History of Present Illness Chief Complaint: Shortness of Breath Informant: patient Onset/Context/Timing Onset: Yesterday Context: gradual Timing: Continuous Quality: Positive for Dyspnea on exertion and - (Tightness) Worsened by: Exertion Relieved by: Albuterol Associated Symptoms cough, rhinorrhea and yellow sputum; Negative for post nasal drip, ear pain, fever, sore throat, chills, clear sputum, white sputum or green sputum Chest Pain: Positive for Burning and Tightness Narrative Narrative: Patient presents with shortness of breath that began yesterday. Patient states it is gradually gotten worse. Patient states it is constant. Patient states it feels tight in her chest. Patient states her breathing is worse with any exertion. Patient states that EMS gave her an albuterol aerosol which helped somewhat. Patient states she is coughing up some yellow sputum. Patient also admits to some rhinorrhea. Patient denies any fevers or chills. Patient admits to some pain over her left chest. Patient describes it as burning. Patient admits to some nausea but denies any vomiting. Patient states her pain radiates into her back. [facility] Medical History (Updated 07/26/25 @ 18:34 by Naz Salazar) Asthma Hx of gastroesophageal reflux (GERD) High cholesterol Home Medications ?Medication ?Instructions ?Recorded ?Last Taken ?Type hydrocodone-acetaminophen 5-325mg 1 tab PO Q6H PRN juan carlos n 3 days #10 06/24/22 Unknown Rx 5mg-325mg tabs atorvastatin 20 mg tablet 20 mg PO DAILY 10/06/2309/23 History cyanocobalamin (vitamin B-12) 1,000 mcg sublingual JO LY 10/06/23 Unknown History 3,000 mcg sublingual lozenge dofetilide 125 mcg capsule 125 mcg PO Q12H 10/06/23 Un known History ferrous sulfate 325 mg (65 mg 325 mg PO DAILY 10/06/23 Unknown History iron) tablet fluconazole 150 mg tablet 150 mg PO DAILY 10/06/23 Unk nown History furosemide 20 mg tablet 20 mg PO QODAY 10/06/23 Unkn own History mirtazapine 30 mg tablet 30 mg PO DAILY 10/06/23 Unkn own History pantoprazole 40 mg tablet,delayed 40 mg PO DAILY 10/06 Unknown History release sertraline 50 mg tablet 50 mg PO DAILY 10/06/23 Unkn own History venlafaxine 150 mg 150 mg PO .qam 10/06/23 Unkn own History capsule,extended release 24 hr warfarin 1 mg tablet 1 mg PO DAILY 10/06/23 Unkno wn History warfarin 5 mg tablet 5 mg PO DAILY 10/06/23 Unkno wn History warfarin 6 mg tablet mg 10/06/23 Unknown History Allergy/AdvReac Type Severity Reaction Status Date / Time adenosine AdvReac Upset Verified 07/26/25 16:11 Stomach Surgical History H/O aortic valve replacement Social History Smoking Status: Never smoker ROS ROS ED Constitutional Constitutional ED: Denies chills or fever(s) Eyes Eyes: Denies blurry vision or change in vision ENT ENT ED: Reports rhinorrhea; Denies sore throat Cardiovascular Cardiovascular: Reports chest pain; Denies palpitations Respiratory/Chest Respiratory/Chest: Reports cough and dyspnea Gastrointestinal Gastrointestinal: Reports nausea; Denies vomiting Genitourinary Genitourinary ED: Denies dysuria or hematuria Musculoskeletal Musculoskeletal: Reports back pain; Denies neck pain Integumentary Denies abscess or rash Neurologic Neurologic: Reports headache(s); Denies weakness Allergic/Immunologic Allergic/Immunologic ED: Denies mouth swelling or urticaria EXAM Physical Exam Const Vital Signs: 07/26/25 16:02 07/26/25 16:09 07/26/25 16:11 Temperature 98 F 98 F Temperature Source Axillary Oral Pulse Rate 114 H 110 H Respiratory Rate 25 H 32 H Respiratory Effort Short of Breath Labored Respiratory Depth Shallow Respiratory Pattern Tachypnea Blood Pressure 138/97 H 138/97 H Blood Pressure Mean 110 110 Pulse Ox 100 100 Oxygen Delivery Method Room Air Nasal Cannula Nasal Cannula Oxygen Flow Rate (L/min) 6 6 4 07/26/25 16:15 07/26/25 16:16 07/26/25 16:16 Temperature Temperature Source Pulse Rate 113 H Respiratory Rate 26 H Respiratory Effort Respiratory Depth Respiratory Pattern Blood Pressure 133/79 H Blood Pressure Mean 94 Pulse Ox 99 98 Oxygen Delivery Method Nasal Cannula Oxygen Flow Rate (L/min) 3 07/26/25 16:26 07/26/25 16:30 07/26/25 16:45 Temperature Temperature Source Pulse Rate 123 H 123 H Respiratory Rate 29 H 33 H Respiratory Effort Respiratory Depth Respiratory Pattern Blood Pressure Blood Pressure Mean Pulse Ox 99 100 98 Oxygen Delivery Method Nasal Cannula Oxygen Flow Rate (L/min) 3 07/26/25 16:45 07/26/25 16:48 07/26/25 17:00 Temperature Temperature Source Pulse Rate 123 H 123 H 123 H Respiratory Rate 33 H 18 26 H Respiratory Effort Respiratory Depth Respiratory Pattern Normal Blood Pressure 136/87 H 139/74 H Blood Pressure Mean 100 95 Pulse Ox 98 100 Oxygen Delivery Method Oxygen Flow Rate (L/min) 07/26/25 17:09 07/26/25 17:15 07/26/25 17:15 Temperature 98 F Temperature Source Oral Pulse Rate 105 H 110 H Respiratory Rate 23 H 27 H Respiratory Effort Respiratory Depth Respiratory Pattern Blood Pressure 139/74 H 144/99 H Blood Pressure Mean 95 110 Pulse Ox 97 97 98 Oxygen Delivery Method Nasal Cannula Oxygen Flow Rate (L/min) 2 07/26/25 17:30 07/26/25 17:45 07/26/25 17:46 Temperature Temperature Source Pulse Rate 122 H 120 H 124 H Respiratory Rate 32 H 27 H Respiratory Effort Respiratory Depth Respiratory Pattern Blood Pressure 127/91 H 144/87 H 130/90 H Blood Pressure Mean 103 102 104 Pulse Ox 97 97 97 Oxygen Delivery Method Oxygen Flow Rate (L/min) 07/26/25 18:00 07/26/25 18:15 07/26/25 18:28 Temperature 97.9 F Temperature Source Oral Pulse Rate 143 H 110 H 121 H Respiratory Rate 32 H 28 H 25 H Respiratory Effort Respiratory Depth Respiratory Pattern Blood Pressure 132/87 H 152/97 H 152/97 H Blood Pressure Mean 101 112 115 Pulse Ox 95 96 100 Oxygen Delivery Method Nasal Cannula Oxygen Flow Rate (L/min) 2 07/26/25 18:30 07/26/25 18:30 07/26/25 18:38 Temperature Temperature Source Pulse Rate 123 H Respiratory Rate 26 H Respiratory Effort Respiratory Depth Respiratory Pattern Blood Pressure 146/82 H Blood Pressure Mean 98 Pulse Ox 89 98 93 Oxygen Delivery Method Room Air Nasal Cannula Oxygen Flow Rate (L/min) 2 07/26/25 18:45 07/26/25 19:00 07/26/25 19:29 Temperature Temperature Source Pulse Rate 107 H 111 H 109 H Respiratory Rate 32 H 24 H 24 H Respiratory Effort Respiratory Depth Respiratory Pattern Tachypnea Blood Pressure 145/90 H Blood Pressure Mean 105 Pulse Ox 93 93 Oxygen Delivery Method Oxygen Flow Rate (L/min) 07/26/25 19:38 07/26/25 20:00 07/26/25 20:02 Temperature 97.9 F Temperature Source Pulse Rate 124 H 124 H Respiratory Rate 29 H 29 H Respiratory Effort Respiratory Depth Respiratory Pattern Blood Pressure 140/78 H 140/78 H Blood Pressure Mean 98 98 Pulse Ox 98 94 94 Oxygen Delivery Method Room Air Room Air Oxygen Flow Rate (L/min) Positive well nourished and well developed General Appearance ED: well developed and NAD HEENT Reports moist mucous membranes atraumatic Neck supple Resp normal respiratory effort Auscultation: diminished lung sounds diffuse Cardio regular rhythm Rate: tachycardic GI non-distended Palpation: soft and tender LLQ, RLQ and suprapubic; Negative for guarding or rebound tenderness present Extremity normal to inspection General Extremety ED: Negative for edema or tenderness General Extremity: Negative for edema Neuro oriented x3, CN's II-XII intact bilaterally and no sensory deficits noted Sherin Coma Scale: document GCS findings Spontaneous Obeys Commands Oriented 15 Sensorium / Orientation: alert Speech: speech normal Motor Exam: strength 5/5 throughout Psych mental status grossly normal MDM MDM MDM Narrative Medical decision making narrative: Differential diagnosis includes pneumonia, bronchitis, congestive heart failure, electrolyte abnormality, cardiac dysrhythmia, cardiac ischemia, pulmonary embolism, anxiety, coagulopathy, viral illness. Chest x-ray will be obtained to assess for pneumonia or bronchitis. EKG will be obtained to assess for cardiac dysrhythmia and cardiac ischemia. CBC will be obtained to assess for leukoc ytosis and anemia. Basic metabolic profile will be obtained to assess for electrolyte abnormality and renal function. BNP will be obtained to assess for congestive heart failure. High-sensitivity troponin will be obtained to assess for cardiac ischemia. 2-hour repeat high-sensitivity troponin will be obtained to assess for ongoing cardiac ischemia. D-dimer will be obtained to assess for pulmonary embolism. History & Record Review Additional record(s) reviewed:: Prior outpatient record Lab Data Attestation: I reviewed the patient's lab results. Lab results narrative: CBC was reviewed. There is a leukocytosis of 19.2. There is a mild anemia with a hemoglobin of 11.1 and hematocrit 35.3. Basic metabolic profile was reviewed and was within normal limits. D-dimer was reviewed and was normal at 0.29. Initial high-sensitivity troponin was reviewed and was slightly elevated at 24. 2-hour repeat high-sensitivity troponin was reviewed and was normal at 25. BNP was reviewed and was normal at 1380. Serum lactate was reviewed and was normal at 1.4. COVID-19 PCR was reviewed and was negative. Influenza PCR was reviewed and was negative for influenza A and influenza B. RSV PCR was reviewed and was negative. Labs: Laboratory Results - last 24 hr 07/26/25 07/26/25 07/26/25 16:30 18:25 18:45 WBC 19.2 H RBC 3.92 L Hgb 11.1 L Hct 35.3 L MCV 90.1 MCH 28.3 MCHC 31.4 L RDW Std Deviation 50.5 H RDW Coeff of [place] 15.5 H Plt Count 330 MPV 12.0 Immature Gran % (Auto) 0.400 Neut % (Auto) 88.5 H Lymph % (Auto) 4.2 L [place] % (Auto) 6.2 Eos % (Auto) 0.4 Baso % (Auto) 0.3 Absolute Neuts (auto) 17.0 H Absolute Lymphs (auto) 0.80 L Nucleated RBC % 0 D-Dimer Quant (PE/DVT) 0.29 Sodium 140 Potassium 4.0 Chloride 101 Carbon Dioxide 25.7 Anion Gap 13 BUN 14 Creatinine 0.99 Estim Creat Clear Calc 44.16 L Est GFR (MDRD) Non-Af 58 L BUN/Creatinine Ratio 14.0 Glucose 122 H Lactic Acid 1.4 Calcium 9.2 Troponin T High Sens 24 H Troponin T Hi Sens 2 Hr 25 H NT pro BNP II 1380 Radiography Chest X-Ray - ED: 2 View, Read by ED Physician, Read by Radiologist, Right Infiltrate and Left Infiltrate Diagnostic Testing: Clinical Impression(s) from Imaging Studies Chest X-Ray 07/26/25 16:23 IMPRESSION: 1. Bilateral peribronchiolar thickening, can be seen with interstitial edema or small airways disease. 2. Hazy bibasilar opacities, likely atelectasis and/or infiltrates. Reading Location: [id number] and lateral chest x-ray was obtained. There are 2 views. On my independent interpretation, there are bibasilar opacities consistent with atelectasis and/or infiltrates. There is peribronchiolar thickening. There is no cardiomegaly noted. Bony thorax is normal. Radiologist also interpreted the x-rays and agrees. EKG Initial EKG: Attestation: I personally reviewed and interpreted this EKG as follows: Interpretation: Sinus Tachycardia (124) and Non-Specific ST Changes Comments: EKG was obtained. On my independent interpretation, it showed sinus tachycardia with a rate of 124. There is baseline artifact. ME interval was normal at 172 ms. QRS interval was normal at 72 ms. QTc interval was normal at 436 ms. [place] was normal. There are nonspecific ST-T wave changes. Prior EKG tracings: available for review Prior: Unchanged (06/24/2022) Management Discussion w/another healthcare provider: Hospitalist Treatment and Re-Evaluation :: Patient was given a DuoNeb aerosol. Patient was given a repeat DuoNeb aerosol. Patient was started on Rocephin and Zithromax. Patient was advised of her findings. Patient states she still has shortness of breath anytime she moves in the bed. Patient is no longer requiring oxygen however, she feels short of breath with any movement. Patient is still having some expiratory wheezing on reevaluation. Patient was given a repeat albuterol aerosol. I recommended admission to the hospital given her dyspnea with minimal exertion. Case was discussed with hospitalist. Discharge Plan Triage Chief Complaint: Shortness of Breath ED Provider: Augusto Suggs Dx/Rx/DC Orders Prescriptions: No Action hydrocodone-acetaminophen 5-325 mg tablet 1 tab PO Q6H PRN (Reason: pain) 3 Days Qty: 10 0RF atorvastatin 20 mg tablet 20 mg PO DAILY Patient Comments: TAKE 1 TABLET BY MOUTH EVERY DAY cyanocobalamin (vitamin B-12) 3,000 mcg lozenge 1,000 mcg SUBLINGUAL DAILY Patient Comments: DISSOLVE 1 (ONE) TABLET UNDER TONGUE WEEKLY dofetilide 125 mcg capsule 125 mcg PO Q12H Patient Comments: TAKE 1 CAPSULE BY MOUTH TWICE A DAY ferrous sulfate 325 mg (65 mg iron) tablet 325 mg PO DAILY Patient Comments: TAKE 1 TABLET BY MOUTH EVERY DAY fluconazole 150 mg tablet 150 mg PO DAILY Patient Comments: TAKE 1 TABLET ORALLY ONCE, THEN REPEAT IN 72 HOURS furosemide 20 mg tablet 20 mg PO QODAY Patient Comments: TAKE 1 TABLET BY MOUTH EVERY DAY mirtazapine 30 mg tablet 30 mg PO DAILY Patient Comments: TAKE 1 TABLET BY MOUTH EVERYDAY AT BEDTIME pantoprazole 40 mg tablet,delayed release (DR/EC) 40 mg PO DAILY Patient Comments: TAKE 1 TABLET BY MOUTH EVERY DAY sertraline 50 mg tablet 50 mg PO DAILY Patient Comments: TAKE 1 TABLET BY MOUTH EVERY DAY venlafaxine 150 mg capsule,extended release 24hr 150 mg PO .qa Patient Comments: TAKE 1 CAPSULE BY MOUTH EVERY DAY warfarin 1 mg tablet 1 mg PO DAILY Patient Comments: TAKE EVERY WEDNESDAY AND WEDNESDAY DIRECTED warfarin 6 mg tablet Patient Comments: TAKE 1 TABLET BY MOUTH EVERY DAY warfarin 5 mg tablet 5 mg PO DAILY Patient Comments: TAKE 1 TABLET DAILY OR DIRECTED BY PRESCRIBER Primary Care Provider: Angelita Duffy Referrals: Angelita Duffy, [employer] [Primary Care Provider, Internal Medicine] Print Language: Sami
--- NOTE | 2025-07-26 16:23 | RAD_ITS ---
PROCEDURE: CHEST PA AND LATERAL 07/26/2025 REASON FOR EXAM: DYSPNEA TECHNIQUE: Procedure Code: RADCXR Modality: DX Procedure: CHEST PA AND LATERAL COMPARISON: 06/24/2022 FINDINGS: LUNGS AND PLEURA: Diffuse peribronchiolar thickening bilaterally. Hazy opacities in both lung bases. No pleural effusion or pneumothorax. HEART AND MEDIASTINUM: The cardiac silhouette is mildly enlarged. The mediastinal contour is normal. BONES: No acute osseous abnormality. Degenerative changes of the spine. RAD/Chest PA and Lateral IMPRESSION: 1. Bilateral peribronchiolar thickening, can be seen with interstitial edema o r small airways disease. 2. Hazy bibasilar opacities, likely atelectasis and/or infiltrates. Reading Location: [id number]
--- NOTE | 2025-07-26 16:24 | EKG12_ITS ---
Test Reason : Blood Pressure : */* mmHG Vent. Rate : 124 BPM Atrial Rate : 124 BPM P-R Int : 172 ms QRS Dur : 72 ms QT Int : 304 ms P-R-T Axes : 41 76 58 degrees QTcB Int : [address] elevation, consider early repolarization, pericarditis, or injury Abnormal ECG Confirmed by ASHLEIGH OLMEDO, MICKY ([id number]), research editor REZA GONSALES ([id number]) on 07/27/2025 9:16:05 AM Referred By: Confirmed By: MICKY SOTELO MD
[2025-07-26 16:55] LABS: Pro- Brain NATRIURETIC PEPTIDE 1380 pg/mL (<=1800); Troponin T High Sensitivity 24 ng/L (<=14)
[2025-07-26 16:57] LABS: Anion Gap 13 (5-15); BUN 14 mg/dL (4-19); BUN/Creat Ratio 14.0 RATIO (10-20); Calcium,Total 9.2 mg/dL (7.6-11.0); Carbon Dioxide 25.7 mmol/L (21.0-32.0); Chloride 101 mmol/L (98-108); Estimated Creatinine Clearance 44.16 ml/min (50-250); Glucose 122 mg/dL (70-99); Potassium 4.0 mmol/L (3.3-5.1)
[2025-07-26 17:03] LABS: Hematocrit 35.3 % (37-47); Hemoglobin 11.1 g/dL (12.0-15.0); Immature Granulocytes Count 0.070 X10^3/uL (0.0-0.0); Mean Corp Hgb Conc 31.4 g/dL (32-36); Mean Corpuscular Volume 90.1 fL (81-99); Mean Platelet Vol. 12.0 fl (6.2-12.0); NRBC Flagged by Analyzer 0 % (0-5); Platelet Count 330 K/mm3 (150-450); RBC Distribution Width CV 15.5 % (11.6-14.6); RBC Distribution Width SD 50.5 fl (35.1-43.9); Red Blood Count 3.92 M/mm3 (4.2-5.4); White Blood Count 19.2 K/mm3 (4.4-11.0)
[2025-07-26 17:27] LABS: D-Dimer Quantitative (DVT/PE) 0.29 FEU/ug/m (0.27-0.49)
[2025-07-26] MEDS: Ceftriaxone 2 GM in 0.9% Normal Saline (50mL MB+) 50 ML IV (19:05)
[2025-07-26 19:13] LABS: Troponin T High Sens 2 HR 25 ng/L (<=14)
[2025-07-26] MEDS: Azithromycin 500 MG in 0.9% Normal Saline (250mL Bag) 250 ML 250 MG IV (19:34)
[2025-07-26] MEDS: Albuterol 2.5 MG/3 ML VIAL.NEB. INHALATION (20:27)
[2025-07-26 20:51] LABS: Prothrombin Time (Protime)PT. 51.9 SECONDS (11.7-14.9)
[2025-07-26 20:58] LABS: Troponin T High Sens 4 HR 30 ng/L (<=14)
--- NOTE | 2025-07-26 21:19 | PCM.HP.STD ---
HPI - General General Date of Admission: 07/26/25 Date of Service: 07/26/25 Chief Complaint: Shortness of breath and cough HPI Narrative LORIN GARCÍA, is a 80 F who presents to ED with cough for about 3 weeks initially with sputum production then dry. Patient also started having mild shortness of breath for 1 week which got worse for last 3 days. She did not measure her temperature but felt chills, cold and rigor. She also complained of left sided inframammary and posterior chest pain mainly on cough, sharp in quality. She has history of mechanical aortic heart valve and on warfarin. INR is elevated. In ED, vitals shows patient tachypneic and tachycardic, hypoxia requiring 4 to 6 L of oxygen. Labs and chest x-ray was done and reviewed in assessment and plan. Patient is further admitted after IV ceftriaxone and azithromycin given in the ED. Patient is non-smoker but has history of asthma. [facility] Medical History Asthma Hx of gastroesophageal reflux (GERD) High cholesterol Home Medications ?Medication ?Instructions ?Recorded ?Last Taken ?Type hydrocodone-acetaminophen 5-325mg 1 tab PO Q6H PRN pain 3 days #10 06/24/22 Unknown Rx 5mg-325mg tabs atorvastatin 20 mg tablet 20 mg PO DAILY ordered 10/06/23 07/25/25 History cyanocobalamin (vitamin B-12) 1,000 mcg sublingual Q2D ordered 10/06/23 Unknown History 3,000 mcg sublingual lozenge dofetilide 125 mcg capsule 125 mcg PO Q12H ordered 10/06/23 07/26/25 History ferrous sulfate 325 mg (65 mg 325 mg PO DAILY ordered 10/06/23 Unknown History iron) tablet fluconazole 150 mg tablet 150 mg PO DAILY ordered 10/06/23 07/26/25 History furosemide 20 mg tablet 20 mg PO QODAY ordered 10/06/23 07/26/25 History mirtazapine 30 mg tablet 30 mg PO DAILY ordered 10/06/23 07/25/25 History pantoprazole 40 mg tablet,delayed 40 mg PO DAILY 10/06/23 Unknown History release sertraline 50 mg tablet 50 mg PO DAILY 10/06/23 Unknown History venlafaxine 150 mg 150 mg PO .qam ordered 10/06/23 07/26/25 History capsule,extended release 24 hr warfarin 1 mg tablet 1 mg PO DAILY 10/06/23 Unknown History warfarin 5 mg tablet 5 mg PO DAILY ordered 10/06/23 07/25/25 History warfarin 6 mg tablet mg 10/06/23 Unknown History Allergy/AdvReac Type Severity Reaction Status Date / Time adenosine AdvReac Upset Verified 07/26/25 16:11 Stomach Surgical History H/O aortic valve replacement Social History Smoking Status: Never smoker ROS ROS Narrative Constitutional: Reports fatigue and weakness. No fever but chills and rigors HEENT: Reports systems reviewed and no addt'l complaints, except as documented Respiratory/Chest: Bilateral wheezing. Rest as described in HPI CVS: No pleuritic chest pain on left anterior and posterior described in HPI Gastrointestinal: Irregular bowel movement. 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 No acute injury Neurologic: Denies seizure-like symptoms. skin: No ulcer. No rash Endocrinology: Reports systems reviewed and no addt'l complaints, except as documented Hematologic/Lymphatic: Reports systems reviewed and no addt'l complaints, except as documented Rest 14 ROS are negative except as mentioned in HPI Vital Signs Vital Signs Vital Signs: 07/26/25 16:02 07/26/25 16:09 07/26/25 16:11 Temperature 98 F 98 F Temperature Source Axillary Oral Pulse Rate 114 H 110 H Respiratory Rate 25 H 32 H Respiratory Effort Short of Breath Labored Respiratory Depth Shallow Respiratory Pattern Tachypnea Blood Pressure 138/97 H 138/97 H Blood Pressure Mean 110 110 Pulse Ox 100 100 Oxygen Delivery Method Room Air Nasal Cannula Nasal Cannula Oxygen Flow Rate (L/min) 6 6 4 07/26/25 16:15 07/26/25 16:16 07/26/25 16:16 Temperature Temperature Source Pulse Rate 113 H Respiratory Rate 26 H Respiratory Effort Respiratory Depth Respiratory Pattern Blood Pressure 133/79 H Blood Pressure Mean 94 Pulse Ox 99 98 Oxygen Delivery Method Nasal Cannula Oxygen Flow Rate (L/min) 3 07/26/25 16:26 07/26/25 16:30 07/26/25 16:45 Temperature Temperature Source Pulse Rate 123 H 123 H Respiratory Rate 29 H 33 H Respiratory Effort Respiratory Depth Respiratory Pattern Blood Pressure Blood Pressure Mean Pulse Ox 99 100 98 Oxygen Delivery Method Nasal Cannula Oxygen Flow Rate (L/min) 3 07/26/25 16:45 07/26/25 16:48 07/26/25 17:00 Temperature Temperature Source Pulse Rate 123 H 123 H 123 H Respiratory Rate 33 H 18 26 H Respiratory Effort Respiratory Depth Respiratory Pattern Normal Blood Pressure 136/87 H 139/74 H Blood Pressure Mean 100 95 Pulse Ox 98 100 Oxygen Delivery Method Oxygen Flow Rate (L/min) 07/26/25 17:09 07/26/25 17:15 07/26/25 17:15 Temperature 98 F Temperature Source Oral Pulse Rate 105 H 110 H Respiratory Rate 23 H 27 H Respiratory Effort Respiratory Depth Respiratory Pattern Blood Pressure 139/74 H 144/99 H Blood Pressure Mean 95 110 Pulse Ox 97 97 98 Oxygen Delivery Method Nasal Cannula Oxygen Flow Rate (L/min) 2 07/26/25 17:30 07/26/25 17:45 07/26/25 17:46 Temperature Temperature Source Pulse Rate 122 H 120 H 124 H Respiratory Rate 32 H 27 H Respiratory Effort Respiratory Depth Respiratory Pattern Blood Pressure 127/91 H 144/87 H 130/90 H Blood Pressure Mean 103 102 104 Pulse Ox 97 97 97 Oxygen Delivery Method Oxygen Flow Rate (L/min) 07/26/25 18:00 07/26/25 18:15 07/26/25 18:28 Temperature 97.9 F Temperature Source Oral Pulse Rate 143 H 110 H 121 H Respiratory Rate 32 H 28 H 25 H Respiratory Effort Respiratory Depth Respiratory Pattern Blood Pressure 132/87 H 152/97 H 152/97 H Blood Pressure Mean 101 112 115 Pulse Ox 95 96 100 Oxygen Delivery Method Nasal Cannula Oxygen Flow Rate (L/min) 2 07/26/25 18:30 07/26/25 18:30 07/26/25 18:38 Temperature Temperature Source Pulse Rate 123 H Respiratory Rate 26 H Respiratory Effort Respiratory Depth Respiratory Pattern Blood Pressure 146/82 H Blood Pressure Mean 98 Pulse Ox 89 98 93 Oxygen Delivery Method Room Air Nasal Cannula Oxygen Flow Rate (L/min) 2 07/26/25 18:45 07/26/25 19:00 07/26/25 19:29 Temperature Temperature Source Pulse Rate 107 H 111 H 109 H Respiratory Rate 32 H 24 H 24 H Respiratory Effort Respiratory Depth Respiratory Pattern Tachypnea Blood Pressure 145/90 H Blood Pressure Mean 105 Pulse Ox 93 93 Oxygen Delivery Method Oxygen Flow Rate (L/min) 07/26/25 19:38 07/26/25 20:00 07/26/25 20:02 Temperature 97.9 F Temperature Source Pulse Rate 124 H 124 H Respiratory Rate 29 H 29 H Respiratory Effort Respiratory Depth Respiratory Pattern Blood Pressure 140/78 H 140/78 H Blood Pressure Mean 98 98 Pulse Ox 98 94 94 Oxygen Delivery Method Room Air Room Air Oxygen Flow Rate (L/min) 07/26/25 20:27 07/26/25 21:00 07/26/25 21:15 Temperature Temperature Source Pulse Rate 123 H 126 H Respiratory Rate 24 H 22 H Respiratory Effort Respiratory Depth Respiratory Pattern Tachypnea Blood Pressure 128/87 H Blood Pressure Mean 100 Pulse Ox 94 87 Oxygen Delivery Method Room Air Room Air Oxygen Flow Rate (L/min) 07/26/25 21:16 Temperature Temperature Source Pulse Rate Respiratory Rate Respiratory Effort Respiratory Depth Respiratory Pattern Blood Pressure Blood Pressure Mean Pulse Ox 94 Oxygen Delivery Method Nasal Cannula Oxygen Flow Rate (L/min) 2 Weight Weight: 187 lb 13.341 oz Body Mass Index (BMI) 35.4 Physical Exam Narrative General: Alert, Oriented x3, Cooperative. BMI 35.5 kg/m?, obesity grade 2 HEENT: Atraumatic, PERRLA, EOMI, Normocephalic. Oral: Deep oropharyngeal structures could not be visualized Neck: Supple, No JVD, Negative Carotid Bruits Chest wall/Lungs: Air entry severely diminished in all lung s[place]. Bilateral wheezing, tachypnea and hypoxia Cardiovascular: A-fib, mechanical valve click sound Abdomen: Bowel Sounds sluggish, Soft, Non Tender, Non-Distended : No dysuria. No renal angle tenderness. No suprapubic tenderness. Extremities: No edema, Capillary Refill Less than 3 Seconds Skin: No rashes, No breakdown Musculoskeletal: No Tenderness to Palpation of Joints or Extremities Neurological: Cranial nerves II-XII grossly intact, DTR 2+/4. No acute focal neurological deficit. Psych/Mental Status: Flat affect Results Lab / Micro Data 07/26/25 16:30 07/26/25 16:30 Labs: Laboratory Results - last 24 hr 07/26/25 16:30: WBC 19.2 H, RBC 3.92 L, Hgb 11.1 L, Hct 35.3 L, MCV 90.1, MCH 28.3, MCHC 31.4 L, RDW Std Deviation 50.5 H, RDW Coeff of [place] 15.5 H, Plt Count 330, MPV 12.0, Immature Gran % (Auto) 0.400, Neut % (Auto) 88.5 H, Lymph % (Auto) 4.2 L, Cavalier % (Auto) 6.2, Eos % (Auto) 0.4, Baso % (Auto) 0.3, Absolute Neuts (auto) 17.0 H, Absolute Lymphs (auto) 0.80 L, Nucleated RBC % 0, D-Dimer Quant (PE/DVT) 0.29, Sodium 140, Potassium 4.0, Chloride 101, Carbon Dioxide 25.7, Anion Gap 13, BUN 14, Creatinine 0.99, Estim Creat Clear Calc 44.16 L, Est GFR (MDRD) Non-Af 58 L, BUN/Creatinine Ratio 14.0, Glucose 122 H, Calcium 9.2, Troponin T High Sens 24 H, NT pro BNP II 1380 07/26/25 18:25: Troponin T Hi Sens 2 Hr 25 H 07/26/25 18:45: Lactic Acid 1.4 07/26/25 20:35: PT 51.9 H, INR 5.6 H*, Troponin T Hi Sens 4Hr 30 H Micro: Microbiology 07/26/25 16:30 Mucosa - Nose SARS-CoV-2, Influenza & RSV (PCR) - Final Imaging Radiology Impression Chest X-Ray 07/26/25 16:23 IMPRESSION: 1. Bilateral peribronchiolar thickening, can be seen with interstitial edema or small airways disease. 2. Hazy bibasilar opacities, likely atelectasis and/or infiltrates. Reading Location: [id number] Assessment & Plan Assessment/Plan (1) Pneumonia involving right lung: PLAN: Plan This 30-year-old female being admitted for evaluation of shortness of breath and cough suggestive of pneumonia. 1. Bilateral interstitial pneumonia: Patient is being admitted in PCU. Chest x-ray reviewed shows hazy opacities in both lung bases and diffuse peribronchial thickening suggestive of bilateral pneumonia with atelectasis. Also suspicion of interstitial edema/small airway disease. Patient is started on IV ceftriaxone and azithromycin. Curb 65 score is 2. Pneumonia severity score is 101 which is moderate risk. Lactic acid normal. Patient has leukocytosis 19.2 With predominant lymphocytes 88.5% and relative lymphopenia 4.2%. 2. Moderate asthma exacerbation probably from pneumonia: Patient has a history of asthma and chest x-ray shows a small airway and interstitial edema. Started on IV scheduled Solu-Medrol and DuoNeb nebulization, incentive spirometry and Pep 3. Cardiac disease: Chronic A-fib, mechanical aortic valve on dofetilide, furosemide 20 mg every other day and warfarin. Patient's PCP, Fior Duffy note reviewed. 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 Twelve-lead EKG done in the ER is mainly artifact therefore repeat EKG ordered. It is unclear whether patient has heart failure. proBNP normal. Troponin similar and flat 24 and 25. Patient has atypical chest pain and seems pleuritic in nature from history. 2D echo is ordered. Furosemide 20 mg IV given to left shortness of breath and possible interstitial edema. Patient does not have leg edema 4. Hypothyroidism: PCP note states patient has hypothyroidism but home medications does not show levothyroxine/Synthroid. 5. Chronic iron deficiency anemia: On ferrous sulfate 325 mg daily 6. Dyslipidemia: On atorvastatin continued 7. Mild anxiety and depression on mirtazapine, venlafaxine and sertraline; continued Living will/advanced directive/end of life care: Patient does not have living will or advanced directive. Patient's son accompanied in the ED. After discussion of benefits/risks procedures involved with full code, DNR CC arrest and DNR CC, the patient and her son opted for DNR CC arrest with no intubation Patient does want artificial life support including intubation, tube feed, ventilator and/chest compression, central venous catheter, vasopressor and DC shock if needed Total time spent in [id number] encounter in discussion of advanced directive 17 minutes. Microbiology Past 72 Hours 07/26/25 16:30 Mucosa - Nose SARS-CoV-2, Influenza & RSV (PCR) - Final Laboratory Results 07/26/25 16:30: WBC 19.2 H, RBC 3.92 L, Hgb 11.1 L, Hct 35.3 L, MCV 90.1, MCH 28.3, MCHC 31.4 L, RDW Std Deviation 50.5 H, RDW Coeff of [place] 15.5 H, Plt Count 330, MPV 12.0, Immature Gran % (Auto) 0.400, Neut % (Auto) 88.5 H, Lymph % (Auto) 4.2 L, Cavalier % (Auto) 6.2, Eos % (Auto) 0.4, Baso % (Auto) 0.3, Absolute Neuts (auto) 17.0 H, Absolute Lymphs (auto) 0.80 L, Nucleated RBC % 0, D-Dimer Quant (PE/DVT) 0.29, Sodium 140, Potassium 4.0, Chloride 101, Carbon Dioxide 25.7, Anion Gap 13, BUN 14, Creatinine 0.99, Estim Creat Clear Calc 44.16 L, Est GFR (MDRD) Non-Af 58 L, BUN/Creatinine Ratio 14.0, Glucose 122 H, Calcium 9.2, Troponin T High Sens 24 H, NT pro BNP II 1380 07/26/25 18:25: Troponin T Hi Sens 2 Hr 25 H 07/26/25 18:45: Lactic Acid 1.4 07/26/25 20:35: PT 51.9 H, INR 5.6 H*, Troponin T Hi Sens 4Hr 30 H Clinical Impression(s) from Imaging Studies Chest X-Ray 07/26/25 16:23 IMPRESSION: 1. Bilateral peribronchiolar thickening, can be seen with interstitial edema or small airways disease. 2. Hazy bibasilar opacities, likely atelectasis and/or infiltrates. Reading Location: [id number] Charges/Coding Visit Charges Inpatient E&M: 01033 Init Hosp L3 Procedures Hospitalists Procedures: 68587 Advncd Care Plan 30 Min
--- NOTE | 2025-07-26 21:35 | ECHOCS_ITS ---
Reason For Study Reason For Study: Arrhythmia Procedure This was a 2D Doppler, Color Flow transthoracic echocardiogram. Contrast injection was performed. Exam performed portable in patient room. Left Ventricle Normal LV size. The left ventricular ejection fraction is 50 %. There is mild global hypokinesis of the left ventricle. Right Ventricle Normal RV size. Normal systolic function. Atria Normal left atrium. Normal right atrium. Mitral Valve Peak transmitral valve gradient 17.6 mmHg. Mean transmitral valve gradient 9 mmHg. Stable appearing bioprosthetic mitral valve apparatus. Tricuspid Valve Normal tricuspid valve. Moderate (2+) tricuspid valve insufficiency. Pulmonary artery systolic pressure is 54 mmHg. Aortic Valve Trisinus/trileaflet aortic valve. Mild (1+) aortic valve insufficiency. Pulmonic Valve Normal pulmonic valve. Great Vessels Normal aortic root. The pulmonary artery is normal size. Inferior vena cava collapse with respiration. Pericardium/Pleural No pericardial effusion. Medication Diluted definity 1.5ml given slow IV push to enhance endocardial definition. MMode/2D Measurements & Calculations LVIDd: 4.2 cm IVSd: 0.90 cm Ao root diam: 3.2 cm LVIDs: 3.3 cm LVPWd: 0.93 cm RVDd: 3.2 cm FS: 22.3 % LAV(MOD-bp): 45.5 ml LVAd ap4: 20.7 cm2 SV(MOD-sp4): 27.4 ml LAV(MOD-bp) Indexed: 25.6 ml/m2 LVLd ap4: 6.5 cm SI(MOD-sp4): 15.4 ml/m2 LAV(MOD-sp2): 44.4 ml EDV(MOD-sp4): 54.5 ml LAV(MOD-sp4): 41.8 ml EDV(sp4-el): 56.1 ml LVAs ap4: 13.4 cm2 LVLs ap4: 5.6 cm ESV(MOD-sp4): 27.1 ml ESV(sp4-el): 27.5 ml EF(MOD-sp4): 50.3 % EF(sp4-el): 51.0 % SV(sp4-el): 28.6 ml LA A4 area: 16.7 cm2 LA dimension(2D): 4.7 cm RA A4 area: 8.4 cm2 TAPSE: 1.4 cm Time Measurements MV dec time: 0.20 sec Doppler Measurements & Calculations MV E max ari: 166.6 cm/sec Lat Peak E' Ari: 5.1 cm/sec Med Peak E' Ari: 5.9 cm/sec MV A max ari: 81.9 cm/sec E/E' lat: 32.8 E/E' med: 28.4 MV E/A: 2.0 MV V2 max: 209.1 cm/sec MV dec slope: 829.1 cm/sec2 Ao V2 max: 170.9 cm/sec MV max P.6 mmHg Ao max P.7 mmHg MV V2 mean: 146.7 cm/sec Ao V2 mean: 133.8 cm/sec MV mean P.3 mmHg Ao mean P.6 mmHg MV V2 VTI: 32.7 cm Ao V2 VTI: 34.5 cm AI max ari: 426.0 cm/sec LV V1 max: 99.1 cm/sec PA V2 max: 85.3 cm/sec AI max P.6 mmHg LV V1 max P.9 mmHg AI dec slope: 380.0 cm/sec2 AI P1/2t: 328.3 msec TR max ari: 346.8 cm/sec TR max P.1 mmHg ECHO/Echo Complete W/ Contrast Interpretation Summary Normal LV size. The left ventricular ejection fraction is 50 %. Stable appearing bioprosthetic mitral valve apparatus. Mean transmitral valve gradient 9 mmHg. Mild (1+) aortic valve insufficiency. Pulmonary artery systolic pressure is 54 mmHg. Ordering Physician: Tl Mart Referring Physician: Angelita Duffy Performed By: Madina Young, SHEY, RVT
--- NOTE | 2025-07-26 21:42 | EKG12_ITS ---
Test Reason : ADMIT EKG Blood Pressure : */* mmHG Vent. Rate : 108 BPM Atrial Rate : * BPM P-R Int : * ms QRS Dur : 72 ms QT Int : 358 ms P-R-T Axes : * 64 42 degrees QTcB Int : 479 ms Atrial fibrillation with rapid ventricular response Abnormal ECG Confirmed by MICKY SOTELO MD ([id number]), editorial intern REZA GONSALES ([id number]) on 07/27/2025 9:16:50 AM Referred By: TB Confirmed By: MICKY SOTELO MD
[2025-07-26 22:18] LABS: Magnesium 1.7 mg/dL (1.5-2.2)
[2025-07-27] VITALS (13 sets, daily range): BP systolic 111–132; BP diastolic 61–75; PULSE 102–126; RESP 16–25; TEMP 36.3–36.6; O2SAT 92–99; BMI 36.3
[2025-07-27] MEDS: Furosemide 20 MG/2 ML VIAL IV (00:03)
[2025-07-27] MEDS: Senna/Docusate Sodium 1 Tablet 2 TABLET PO ×3 (00:03→21:31)
--- NOTE | 2025-07-27 03:30 | EKG12_ITS ---
Test Reason : TIKOSYN Blood Pressure : */* mmHG Vent. Rate : 105 BPM Atrial Rate : 105 BPM P-R Int : 180 ms QRS Dur : 78 ms QT Int : 404 ms P-R-T Axes : 75 56 40 degrees QTcB Int : 533 ms Sinus tachycardia with Premature atrial complexes Prolonged QT Abnormal ECG When compared with ECG of 26-Jul-2025 22:44, MANUAL COMPARISON REQUIRED DATA IS UNCONFIRMED Confirmed by ASHLEIGH OLMEDO, MICKY ([id number]), senior editor REZA GONSALES ([id number]) on 07/27/2025 11:37:22 AM Referred By: Confirmed By: MICKY SOTELO MD
[2025-07-27 05:48] LABS: Hematocrit 30.8 % (37-47); Hemoglobin 9.9 g/dL (12.0-15.0); Immature Granulocytes Count 0.070 X10^3/uL (0.0-0.0); Mean Corp Hgb Conc 32.1 g/dL (32-36); Mean Corpuscular Volume 89.5 fL (81-99); Mean Platelet Vol. 11.6 fl (6.2-12.0); NRBC Flagged by Analyzer 0 % (0-5); POSITIVE DIFFERENTIAL YES; Platelet Count 271 K/mm3 (150-450); RBC Distribution Width CV 15.4 % (11.6-14.6); RBC Distribution Width SD 50.6 fl (35.1-43.9); Red Blood Count 3.44 M/mm3 (4.2-5.4); White Blood Count 13.6 K/mm3 (4.4-11.0)
[2025-07-27] MEDS: 0.9% Saline Lock 10 ML Syringe IV (05:50)
[2025-07-27 06:40] LABS: Anion Gap 11 (5-15); BUN 17 mg/dL (4-19); BUN/Creat Ratio 16.5 RATIO (10-20); Calcium,Total 8.6 mg/dL (7.6-11.0); Carbon Dioxide 25.6 mmol/L (21.0-32.0); Chloride 102 mmol/L (98-108); Estimated Creatinine Clearance 40.22 ml/min (50-250); Glucose 202 mg/dL (70-99); Potassium 3.6 mmol/L (3.3-5.1)
[2025-07-27 11:04] LABS: Prothrombin Time (Protime)PT. 35.7 SECONDS (11.7-14.9)
--- NOTE | 2025-07-27 12:10 | CASEMGMT ---
Addendum entered by Tino Umana 07/27/25 14:40: Per son, they do have solar battery inverter for the O2. Original Note: RN?CM?ASSESSMENT ? RN?CM?to room to meet with patient for initial transition planning/care coordination?assessment.?RN?CM?introduced self and role at [facility].? Pt voices understanding and consents to?assessment?at this time.? Pt resting in bed in no distress at this time.?Abraham Cooper, @ bedside and pt agreeable to him being present during assessment. Pt is A/O at this time and answers all questions appropriately.?? Care providers, pharmacy, and demographics verified/updated at this time. ? Strata: 1 PCP: Angelita Duffy NP. Pt has an appt w/her Monday 07/30 @ 2:15 PM. She states they will cancel this Wednesday morning if she is still in the hospital. Specialists:[facility] (come to [place]). Pt sees psychologist and counselor @ [facility]. Preferred Pharmacy: [facility] @ [place] Otherwise, pt uses [facility]. Insurance: [facility] Prescription Benefit:?Yes, [employer] [place]: Abraham Cooper. [place]. Living Arrangements: Lives alone in one-story home w/basement and 4 steps +1 threshold step through one entrance or 2-3 steps through another entrance. Pt does not go to the basement. Pt's sonRIOS, and 2 adult grandsons live in a separate home on the same property. Pt is indep w/ADL's and IADL's. Family supportive and assists as needed. RIOS checks pt's INR @ home for her. Transportation:?[facility] Van, hire drivers. DME: States has the following DME:?cane, rails/grab bars, INR machine. Pt also has a walker and W/C available, but does not use them. Pt has a button to alert her family if she needs assistanc. She does not have a pulse ox. RN CM recommended to get one and made aware of places this can be purchased. No home O2. If pt qualifies for O2 @ dc, son states to use [employer]. Pt states no need for further DME at this time.? HHC/SNF: Pt has been to [facility] in the past & has had HHC in the past, but does not remember name of agency. Discussed discharge planning, including HHC & OP therapy. Initially pt stated interested in HHC. Explained to pt and son FLAVIO's homebound criteria. Son states pt is not homebound @ her baseline and does not feel she will be homebound @ discharge. Pt interested in doing OP ST @ [facility], stating she has done therapy there in the past. PT/OT evals pending. If therapy recommends additional PT/OT, pt would be interested in doing OP PT/OT as well. Made aware [place] script [place] be provided @ [place] ? Pt wishes to return home and states has no concerns with going home at time of discharge. CM?to follow for home oxygen needs and any further discharge planning/needs.? Pt voices no further concerns/needs at this time.? Advised pt to ask for?CM?if any further questions/concerns/needs arise.? Voices understanding. ? PLAN:??Home w/script for OP ST. Follow for possible need of script for OP PT/OT as well. Follow for possible home O2. ? Jhony BSN?RN?CM ?
--- NOTE | 2025-07-27 13:15 | PN_ITS ---
Subjective Subjective Patient seen and examined with her nurse by her bedside. His son was by her bedside. She complained of some wheezing this morning. She denied any cough or chest pain, palpitations, nausea or vomiting. She is on room air. She is mildly tachycardic this morning. Review of systems is othewrise negative. Objective Data Objective Data Vital Signs: Vital Signs Temp Pulse Resp BP Pulse Ox O2 Del Method O2 Flow Rate 97.5 F L 108 H 18 132/75 H 92 Room Air 2 07/27/25 11:00 07/27/25 11:00 07/27/25 11:00 07/27/25 11:00 07/27/25 11:00 07/27/25 11:00 07/27/25 06:58 Oxygen Flow Rate (L/min) 2 Oxygen Delivery Method Room Air Weight: 174 lb 2.643 oz Body Mass Index (BMI) 36.3 Intake & Output: Intake and Output for Last 24 Hours 07/25/25 07/26/25 07/27/25 23:59 23:59 23:59 Intake Total 300 / 300 Balance 300 / 300 Lab / Micro Data 07/27/25 04:48 07/27/25 04:48 Labs: Laboratory Results - last 24 hr 07/26/25 16:30: WBC 19.2 H, RBC 3.92 L, Hgb 11.1 L, Hct 35.3 L, MCV 90.1, MCH 28.3, MCHC 31.4 L, RDW Std Deviation 50.5 H, RDW Coeff of [place] 15.5 H, Plt Count 330, MPV 12.0, Immature Gran % (Auto) 0.400, Neut % (Auto) 88.5 H, Lymph % (Auto) 4.2 L, [place] % (Auto) 6.2, Eos % (Auto) 0.4, Baso % (Auto) 0.3, Absolute Neuts (auto) 17.0 H, Absolute Lymphs (auto) 0.80 L, Nucleated RBC % 0, D-Dimer Quant (PE/DVT) 0.29, Sodium 140, Potassium 4.0, Chloride 101, Carbon Dioxide 25.7, Anion Gap 13, BUN 14, Creatinine 0.99, Estim Creat Clear Calc 44.16 L, Est GFR (MDRD) Non-Af 58 L, BUN/Creatinine Ratio 14.0, Glucose 122 H, Calcium 9.2, T roponin T High Sens 24 H, NT pro BNP II 1380 07/26/25 18:25: Troponin T Hi Sens 2 Hr 25 H 07/26/25 18:45: Lactic Acid 1.4 07/26/25 20:35: PT 51.9 H, INR 5.6 H*, Magnesium 1.7, Troponin T Hi Sens 4Hr 30 H 07/27/25 04:48: WBC 13.6 H, RBC 3.44 L, Hgb 9.9 L, Hct 30.8 L, MCV 89.5, MCH 28.8, MCHC 32.1, RDW Std Deviation 50.6 H, RDW Coeff of [place] 15.4 H, Plt Count 271, MPV 11.6, Immature Gran % (Auto) 0.500, Neut % (Auto) 96.7 H, Lymph % (Auto) 1.5 L, [place] % (Auto) 1.2, Eos % (Auto) 0.0, Baso % (Auto) 0.1, Absolute Neuts (auto) 13.2 H, Absolute Lymphs (auto) 0.21 L, Nucleated RBC % 0, Sodium 138, Potassium 3.6, Chloride 102, Carbon Dioxide 25.6, Anion Gap 11, BUN 17, Creatinine 1.02, Estim Creat Clear Calc 40.22 L, Est GFR (MDRD) Non-Af 55 L, BUN/Creatinine Ratio 16.5, Glucose 202 H, Calcium 8.6, TSH 1.540 07/27/25 10:44: PT 35.7 H, INR 3.5 Micro: Microbiology 07/27/25 01:00 Mucosa - Nasopharyngeal Respiratory Panel (PCR) - Final 07/27/25 01:00 Urine, Clean Catch Legionella Antigen - Final 07/27/25 01:00 Urine, Clean Catch Streptococcus pneumoniae Antigen (M - Final 07/26/25 16:30 Mucosa - Nose SARS-CoV-2, Influenza & RSV (PCR) - Final Radiography Diagnostic Testing: Radiology Impression Chest X-Ray 07/26/25 16:23 IMPRESSION: 1. Bilateral peribronchiolar thickening, can be seen with interstitial edema or small airways disease. 2. Hazy bibasilar opacities, likely atelectasis and/or infiltrates. Reading Location: [facility] Echocardiogram 07/26/25 21:35 Interpretation Summary Normal LV size. The left ventricular ejection fraction is 50 %. Stable appearing bioprosthetic mitral valve apparatus. Mean transmitral valve gradient 9 mmHg. Mild (1+) aortic valve insufficiency. Pulmonary artery systolic pressure is 54 mmHg. Ordering Physician: Tl Mart Referring Physician: Angelita Duffy Performed By: Madina Young, SHEY, RVT Physical Exam Const alert, oriented x3 and no apparent distress General Appearance: cooperative HEENT normocephalic, head/scalp atraumatic, moist oral mucous membranes and oropharynx normal Neck no lymphadenopathy and supple Lymph Lymphatic: no lymphedema noted Resp Resp Narrative: Mildly diminished breath sounds bibasally, no crackles but has some bilateral wheezing. On room air. Cardio regular rate, regular rhythm, S1 normal heart sound, S2 normal heart sound and no murmurs GI normal to inspection, nondistended, normoactive bowel sounds, soft to palpation, non-tender and non-distended Extremity normal capillary refill, no clubbing, cyanosis or edema and no calf tenderness General Extremity: no tenderness to palpation of joints or extremities Skin General Skin Exam: no breakdown Neuro no focal motor deficits and no sensory deficits noted Motor Exam: general weakness Psych thought process normal, cooperative and affect normal Appearance: appropriate Assessment & Plan Assessment/Plan (1) Pneumonia involving right lung: (2) Asthma exacerbation: PLAN: Plan #Community-acquired pneumonia * Patient admitted with a complaint of shortness of breath. Chest x-ray showed bilateral. Bronchial wall thickening seen with interstitial edema or small airways disease and hazy bibasilar opacities likely atelectasis and/or infiltrates. * She is currently on IV ceftriaxone and doxycycline. Urine for strep and Legionella were negative. Breathing treatments bronchodilators. * Titrate oxygen to maintain saturation above 90%. * 2D echo ordered for today showed EF of 50% with stable appearing bioprosthetic mitral valve (and pulmonary artery systolic pressure 54 mmHg. There was mild global hypokinesis of the left ventricle. * #Acute asthma exacerbation: * On IV Solu-Medrol. * Breathing treatments with bronchodilators. * #History of A-fib: On Tikosyn. Also on Coumadin. Monitor INR to maintain between 2 and 3. Follows with a medical claims analyst with management. #Hyperlipidemia: On statin #Anxiety and depression: On mirtazapine and venlafaxine as well as sertraline DVT prophylaxis: Already on Coumadin. CODE STATUS: DNR CCA no intubation Charges/Coding Visit Charges Inpatient E&M: 02266 Subs Hosp L2
--- NOTE | 2025-07-27 13:20 | ST.MBS ---
Modified Barium Swallow Patient Information Study Date: 07/27/25 Study Time: 12:30 Direct Billable Minutes: 90 Total Minutes procedure & reportin Diagnosis: J18.9 - Pneumonia Referring Physician: Tl Mart Medical History: An 80-year-old female presents to the ED with a 3-week history of cough, initially productive of sputum and now dry. Over the past week she has developed mild shortness of breath, which has progressively worsened over the last 3 days. She reports chills, feeling cold, and episodes of rigors, though she has not measured her temperature. She also describes left inframammary and posterior chest pain, sharp in nature and primarily elicited by coughing. Her medical history is significant for a mechanical aortic valve replacement, for which she is on warfarin therapy; her INR is elevated today. She also has a history of asthma, gastroesophageal reflux disease (GERD), and hyperlipidemia. She is a non-smoker. Speech therapy was consulted due to concern for aspiration pneumonia. Chest X-ray shows bilateral peribronchiolar thickening, which may represent interstitial edema or small airways disease, as well as hazy bibasilar opacities consistent with possible atelectasis and/or infiltrates. Nursing documentation notes inspiratory wheezes throughout all lung santacruz. At bedside, the patient denies any history of swallowing difficulty or prior pneumonias. However, when asked how she takes her medications at home, she reports using yogurt or applesauce due to some difficulty swallowing pills. She also reports that liquids sometimes feel ?stuck? in her throat, indicating a possible globus sensation consistent with her history of GERD. A 3-oz Tiffanie Swallow Protocol trial was attempted, but the patient demonstrated immediate coughing and clinical signs of aspiration, including watery eyes and difficulty catching her breath. Shortness of breath increased with sequential sips. PO trials were discontinued, and an MBSS is recommended. Dentition: WNL Mental Status: WNL Respiratory Status: Oxygenating on Room Air Penetration-Aspiration Scale Penetration-Aspiration Scale: OBJECTIVE ASSESSMENT OF SWALLOW FUNCTION (QUANTITATIVE ? PER TRIAL): PENETRATION / ASPIRATION SCALE (ADLER): 1 = does not enter airway 2 = enters airway/above vocal folds/ejected 3 = enters airway/above vocal folds/not ejected 4 = enters airway/contacts vocal folds/ejected 5 = enters airway/contacts vocal folds/not ejected 6 = enters airway/below vocal folds/ejected 7 = enters airway/below vocal folds/not ejected despite effort 8 = enters airway/below vocal folds/no effort VIDEOFLOROSCOPIC SCALE SCORE (ADLER): Grade I = aspiration of material that has penetrated into the laryngeal vestibule, intact cough reflex Grade II = aspiration < 10 % of the bolus, intact cough reflex Grade III = aspiration of < 10 % of the bolus, reduced cough reflex or aspiration of > 10 % of the bolus, intact cough reflex Grade IV = aspiration of > 10 % of the bolus, reduced cough reflex Penetration-Aspiration Scale Score Thin Liquid via teaspoon: Result: 1= does not enter airway Thin Liquid via small single sip: cup: Result: 1= does not enter airway Thin Liquid via small single sip: cup Trial 2: Result: 1= does not enter airway Thin Liquid via sequential sips: cup: Result: 1= does not enter airway Cookie: Result: 1= does not enter airway Pudding: Result: 1= does not enter airway Thin Liquid via single sip: straw: Result: 1= does not enter airway Thin Liquid via sequential sips:straw: Result: 2= enter airway/above vocal folds/ejected Oral Phase Labial Seal: Interlabial escape, no progression to anterior lip Tongue Control During Bolus Hold: Cohesive bolus between tongue to palatal seal Bolus Preparation/Mastication: Slow prolonged chewing/mashing with complete recollection Bolus Transport/Lingual Motion: Slowed tongue motion Oral Residue: Trace residue lining oral structures Pharyngeal Phase Initiation of Pharyngeal Swallow: Bolus head in pyriforms Soft Palate Elevation: No bolus between soft palate and pharyngeal wall Laryngeal Elevation: Partial superior movement thyroid cart/partial apprx aryt-epig petiole Anterior Hyoid Excursion: Partial anterior movement Epiglottic Movement: Complete inversion Laryngeal Vestibule Closure at Height of Swallow: Incomplete; narrow column of air/contrast in laryngeal vestibule Pharyngeal Stripping Wave: Present - diminished Pharyngoesophageal Segment Opening: Parital distension and partial duration; parital obstruction of flow Tongue Base Retraction: Trace column of contrast between tongue base & post. pharyngeal wall Pharyngeal Residue: Trace residue within or on pharyngeal structures Esophageal Phase Esophageal Clearance: Esophageal retention w/ retrograde flow below pharyngoesophageal seg. Diagnosis/Impression Diagnosis: Mild oropharyngeal dysphagia R13.12 .: During the oral phase, the patient showed good bolus control and adequate bolus hold, though an incomplete labial seal resulted in anterior spillage during thin liquid intake via straw. Lingual movement was occasionally delayed, and repetitive tongue movements was most evident with pudding trials. Mastication was functional, and the patient tolerated the Teena Doone cookie without difficulty. Trace oral residue was intermittently observed and was either cleared with a spontaneous secondary swallow or seen spilling into the valleculae after the primary swallow. During the pharyngeal and esophageal phases, airway closure was adequate, and no aspiration was observed. Notably, a prominent cricopharyngeal (CP) bar at the level of C5 contributed to reduced pharyngeal motility and resulted in residue in the pyriform sinuses, which places the patient at increased risk for post-prandial aspiration of refluxed contents. Esophageal stasis was also observed following the cookie trial, and while a liquid wash provided partial improvement, retrograde flow below the UES remained evident. Differential diagnosis for the patient?s worsening respiratory status includes asthma exacerbation versus chronic aspiration secondary to uncontrolled GERD. If respiratory status worsens, GI intervention should be considered, as the patient reported not taking any reflux medication at this time. Recommendations Diet: Regular Textures and Thin Liquids Compensatory Strategies: Small Bites, Small Sips, Slow Rate, Multiple Swallows, Alternate bites/solids and sips/liquids, Sitting upright and Remain sitting upright for 30 minutes after PO intake Recommend Repeat Modified Barium Swallow: No Need for Skilled Speech Therapy Services: No Recommended Referrals: GI Consult Education Completed: 1. Described result of evaluation. and 2. Pt understands evaluation & agrees with goals and treatment plan. Status Active ST Patient: Active Contact Information [facility] Speech Therapy:: Vivienne Jacob M.A., [facility] Speech-Language Pathologist [facility] [phone] FAX [phone] [email or web address] [address] [place] [address] ?[place] [address]
--- NOTE | 2025-07-27 14:00 | EKG12_ITS ---
Test Reason : tachycardia Blood Pressure : */* mmHG Vent. Rate : 140 BPM Atrial Rate : * BPM P-R Int : * ms QRS Dur : 74 ms QT Int : 334 ms P-R-T Axes : * 61 52 degrees QTcB Int : 509 ms Critical Test Result: High HR Atrial fibrillation with rapid ventricular response Nonspecific T wave abnormality Abnormal ECG Confirmed by Abraham Simpson ([id number]), makeup editor BHARGAV SHAW ([id number]) on 07/31/2025 8:41:37 AM Referred By: Confirmed By: Abraham Simpson
--- NOTE | 2025-07-27 14:34 | CASEMGMT ---
Discharge Planning A list of?SNF providers including quality and resource use data and consistent with the patient's preferred geographic region, medical needs, and insurance network was created in [employer] Guide.? This list was provided to the SW. Saadia Fields Discharge Planning Asst.
--- NOTE | 2025-07-27 14:45 | CASEMGMT ---
Social Work SW assisted the patient in completing LW/POA paperwork. A copy is in the patients chart. JULISSA Reddy
--- NOTE | 2025-07-27 14:46 | CASEMGMT ---
Social Work A list of?SNF providers including quality and resource use data and consistent with the patient's preferred geographic region, medical needs, and insurance network was created in [employer] Guide.? This list was provided to the patient and her son Abraham. JULISSA Ware
--- NOTE | 2025-07-27 15:16 | CASEMGMT ---
Addendum entered by Yazmin Rios 07/27/25 15:53: TCU can accept the patient. TCU may have a bed available Wednesday. Dr. Goode stated the patient can stay until Wednesday. Dr. Goode is aware the patient will need 3 midnights to DC to a SNF due to having Medicare. Therapy is recommending a SNF for the patient. Addendum entered by Yazmin Rios 07/27/25 15:33: SW sent SNF referral to TCU. Original Note: Social Work SW spoke with the patient and her son. Their SN[facility], [facility] and [facility]. JULISSA Reddy
--- NOTE | 2025-07-27 17:09 | CHAPLAIN ---
Type of Pastoral Visit _x__ Initial Visit ___ Follow-up Visit ___ On-call Visit ___ General Patient Visit ___ Spiritual Assessment ___ Family Conference ___ Bereavement ___ Rapid Response ___ Code Blue ___ Other (describe below) Pastoral Care Referral From _x__ Patient _x__ Family ___ Nurse ___ Physician ___ Senior Managing Director ___ Fountain Brush Assembler ___ Other (describe below) Sacrament/Intervention _x__ Active listening ___ Anointing ___ Buddhist ___ Bereavement ___ Communion _x__ Corina exploration ___ _x__ Life review _x__ Prayer ___ Reconciliation ___ Sacrament of Sick _x__ Supportive presence ___ Wedding ___ Other (describe below) Pastoral Comments patient and her son are in the room; pt is being asked to make decisions for her immediate future rehab needs; pt is looking for direction from her son and SW; pt speaks openly about her corina and how that will be her hope and support; pt says that she has good 'good and bad in this life' but 'God has brought me through'; pt is and misses the help of her ; pt welcomes prayers and asks for continued prayer
[2025-07-27] MEDS: Ceftriaxone 2 GM in 0.9% Normal Saline (50mL MB+) 50 ML IV (21:35)
--- NOTE | 2025-07-27 23:31 | EKG12_ITS ---
Test Reason : POST MED Blood Pressure : */* mmHG Vent. Rate : 108 BPM Atrial Rate : 108 BPM P-R Int : 192 ms QRS Dur : 76 ms QT Int : 352 ms P-R-T Axes : 64 57 32 degrees QTcB Int : 471 ms Sinus tachycardia with Premature supraventricular complexes vs Atrial Fibrillation Artifact in Inferior Leads Baseline Otherwise normal ECG Confirmed by Abraham Simpson ([id number]), editorial intern BHARGAV SHAW ([id number]) on 07/31/2025 8:44:14 AM Referred By: Confirmed By: Abraham Simpson
[2025-07-28] VITALS (8 sets, daily range): BP systolic 112–128; BP diastolic 67–73; PULSE 102–114; RESP 18–20; TEMP 36.4–36.6; O2SAT 94–100; BMI 36.7
[2025-07-28] MEDS: 0.9% Saline Lock 10 ML Syringe IV ×5 (05:35→22:53)
[2025-07-28 06:03] LABS: Hematocrit 31.9 % (37-47); Hemoglobin 9.8 g/dL (12.0-15.0); Immature Granulocytes Count 0.160 X10^3/uL (0.0-0.0); Mean Corp Hgb Conc 30.7 g/dL (32-36); Mean Corpuscular Volume 90.6 fL (81-99); Mean Platelet Vol. 11.6 fl (6.2-12.0); NRBC Flagged by Analyzer 0 % (0-5); POSITIVE DIFFERENTIAL YES; Platelet Count 335 K/mm3 (150-450); RBC Distribution Width CV 15.6 % (11.6-14.6); RBC Distribution Width SD 51.5 fl (35.1-43.9); Red Blood Count 3.52 M/mm3 (4.2-5.4); White Blood Count 21.6 K/mm3 (4.4-11.0)
[2025-07-28 06:10] LABS: Differential Indicated SCAN CRITERIA MET
[2025-07-28 06:39] LABS: Differential Comment SCANNED
[2025-07-28 06:40] LABS: Anion Gap 10 (5-15); BUN 30 mg/dL (4-19); BUN/Creat Ratio 22.1 RATIO (10-20); Calcium,Total 8.7 mg/dL (7.6-11.0); Carbon Dioxide 25.0 mmol/L (21.0-32.0); Chloride 102 mmol/L (98-108); Estimated Creatinine Clearance 30.33 ml/min (50-250); Glucose 170 mg/dL (70-99); Potassium 4.0 mmol/L (3.3-5.1)
[2025-07-28] MEDS: Senna/Docusate Sodium 1 Tablet 2 TABLET PO ×2 (10:00→22:53)
--- NOTE | 2025-07-28 11:36 | PN_ITS ---
Subjective Subjective Patient seen and examined with her nurse. Her son and grandson were by her bedside. SHe had no active complaints today. She is still coughing but unable to expectorate. She denies any fever or chills or any other symptoms. Review of systems is otherwise negative. Objective Data Objective Data Vital Signs: Vital Signs Temp Pulse Resp BP Pulse Ox O2 Del Method O2 Flow Rate 97.5 F L 110 H 20 H 126/73 H 100 Nasal Cannula 2 07/28/25 09:53 07/28/25 10:42 07/28/25 10:42 07/28/25 09:53 07/28/25 09:53 07/28/25 09:53 07/28/25 09:53 Oxygen Flow Rate (L/min) 2 Oxygen Delivery Method Nasal Cannula Weight: 175 lb 14.862 oz Body Mass Index (BMI) 36.7 Intake & Output: Intake and Output for Last 24 Hours 07/26/25 07/27/25 07/28/25 23:59 23:59 23:59 Intake Total 300 / 300 50 / 50 Balance 300 / 300 50 / 50 Lab / Micro Data 07/28/25 05:40 07/28/25 05:40 Labs: Laboratory Results - last 24 hr 07/28/25 05:40: WBC 21.6 H, RBC 3.52 L, Hgb 9.8 L, Hct 31.9 L, MCV 90.6, MCH 27.8, MCHC 30.7 L, RDW Std Deviation 51.5 H, RDW Coeff of [place] 15.6 H, Plt Count 335, MPV 11.6, Immature Gran % (Auto) 0.700, Neut % (Auto) 94.4 H, Lymph % (Auto) 1.9 L, [place] % (Auto) 2.8, Eos % (Auto) 0.1, Baso % (Auto) 0.1, Absolute Neuts (auto) 20.4 H, Absolute Lymphs (auto) 0.41 L, Nucleated RBC % 0, Differential Comment SCANNED, Sodium 137, Potassium 4.0, Chloride 102, Carbon Dioxide 25.0, Anion Gap 10, BUN 30 H, Creatinine 1.36 H, Estim Creat Clear Calc 30.33 L, Est GFR (MDRD) Non-Af 39 L, BUN/Creatinine Ratio 22.1 H, Glucose 170 H, Calcium 8.7 Micro: Microbiology 07/27/25 01:00 Mucosa - Nasopharyngeal Respiratory Panel (PCR) - Final 07/27/25 01:00 Urine, Clean Catch Legionella Antigen - Final 07/27/25 01:00 Urine, Clean Catch Streptococcus pneumoniae Antigen (M - Final 07/26/25 16:30 Mucosa - Nose SARS-CoV-2, Influenza & RSV (PCR) - Final Physical Exam Const alert, oriented x3 and no apparent distress General Appearance: cooperative HEENT normocephalic, head/scalp atraumatic, moist oral mucous membranes and oropharynx normal Eyes EOMs intact bilaterally Neck no lymphadenopathy and supple Lymph Lymphatic: no lymphedema noted Resp Resp Narrative: Mildly diminished breath sounds bibasally, no crackles but has some bilateral wheezing. On room air. Cardio regular rate, regular rhythm, S1 normal heart sound, S2 normal heart sound and no murmurs GI normal to inspection, nondistended, normoactive bowel sounds, soft to palpation, non-tender and non-distended Extremity normal capillary refill, no clubbing, cyanosis or edema and no calf tenderness General Extremity: no tenderness to palpation of joints or extremities Skin General Skin Exam: no breakdown Neuro no focal motor deficits and no sensory deficits noted Motor Exam: general weakness Psych thought process normal, cooperative and affect normal Appearance: appropriate Assessment & Plan Assessment/Plan (1) Pneumonia involving right lung: (2) Asthma exacerbation: PLAN: Plan #Hypoxia due to Community-acquired pneumonia * Patient admitted with a complaint of shortness of breath. Chest x-ray showed bilateral. Bronchial wall thickening seen with interstitial edema or small airways disease and hazy bibasilar opacities likely atelectasis and/or infiltrates. * She is currently on IV ceftriaxone and doxycycline. Urine for strep and Legionella were negative. Breathing treatments bronchodilators. * Titrate oxygen to maintain saturation above 90%. * 2D echo ordered showed EF of 50% with stable appearing bioprosthetic mitral valve (and pulmonary artery systolic pressure 54 mmHg. There was mild global hypokinesis of the left ventricle. * will add on some IV lasix 40mg daily * Swallow evaluation showed mild oropharyngeal dysphagia. Currently on regular textures and thin liquids. * #Acute asthma exacerbation: * On IV Solu-Medrol. * Breathing treatments with bronchodilators. * #Elevated Cr: Cr is 1.36. Was 1.02 yesterday. Does not look dehydrated. Will encourage oral fluid intake and trend Cr. #History of A-fib: On Tikosyn. Also on Coumadin. Monitor INR to maintain between 2 and 3. Follows with thickener operator with on outpatient basis for further management #Hyperlipidemia: On statin #Anxiety and depression: On mirtazapine and venlafaxine as well as sertraline DVT prophylaxis: Already on Coumadin. INR is pending today CODE STATUS: DNR CCA no intubation Charges/Coding Visit Charges Inpatient E&M: 51249 Subs Hosp L2
--- NOTE | 2025-07-28 12:00 | EKG12_ITS ---
Test Reason : EBS Blood Pressure : */* mmHG Vent. Rate : 79 BPM Atrial Rate : 79 BPM P-R Int : 174 ms QRS Dur : 80 ms QT Int : 426 ms P-R-T Axes : 76 60 43 degrees QTcB Int : 488 ms Normal sinus rhythm Normal ECG Confirmed by Abraham Simpson ([id number]), editorial intern BHARGAV SHAW ([id number]) on 07/31/2025 8:41:25 AM Referred By: DR SOTELO Confirmed By: Abraham Simpson
[2025-07-28 12:21] LABS: Prothrombin Time (Protime)PT. 18.0 SECONDS (11.7-14.9)
[2025-07-28] MEDS: Warfarin (PBKC) 5 MG Tablet PO (17:16)
[2025-07-28] MEDS: Ceftriaxone 2 GM in 0.9% Normal Saline (50mL MB+) 50 ML IV (23:01)
[2025-07-29] VITALS (29 sets, daily range): BP systolic 93–126; BP diastolic 47–96; PULSE 71–167; RESP 18–25; TEMP 36.2–36.7; O2SAT 93–100; BMI 36.6
[2025-07-29 05:12] LABS: Hematocrit 31.1 % (37-47); Hemoglobin 9.8 g/dL (12.0-15.0); Immature Granulocytes Count 0.080 X10^3/uL (0.0-0.0); Mean Corp Hgb Conc 31.5 g/dL (32-36); Mean Corpuscular Volume 90.4 fL (81-99); Mean Platelet Vol. 11.4 fl (6.2-12.0); NRBC Flagged by Analyzer 0 % (0-5); POSITIVE DIFFERENTIAL YES; Platelet Count 361 K/mm3 (150-450); RBC Distribution Width CV 15.7 % (11.6-14.6); RBC Distribution Width SD 51.4 fl (35.1-43.9); Red Blood Count 3.44 M/mm3 (4.2-5.4); White Blood Count 18.3 K/mm3 (4.4-11.0)
[2025-07-29 05:21] LABS: Prothrombin Time (Protime)PT. 17.7 SECONDS (11.7-14.9)
[2025-07-29] MEDS: 0.9% Saline Lock 10 ML Syringe IV ×5 (05:22→20:48)
[2025-07-29 05:30] LABS: Anion Gap 10 (5-15); BUN 35 mg/dL (4-19); BUN/Creat Ratio 23.8 RATIO (10-20); Calcium,Total 8.9 mg/dL (7.6-11.0); Carbon Dioxide 25.7 mmol/L (21.0-32.0); Chloride 101 mmol/L (98-108); Estimated Creatinine Clearance 28.20 ml/min (50-250); Glucose 152 mg/dL (70-99); Potassium 4.2 mmol/L (3.3-5.1)
[2025-07-29] MEDS: Warfarin (PBKC) 5 MG Tablet PO ×2 (08:54→16:23)
[2025-07-29] MEDS: Senna/Docusate Sodium 1 Tablet 2 TABLET PO (08:55)
--- NOTE | 2025-07-29 09:27 | PN_ITS ---
Subjective Subjective Patient seen and examined with her nurse by her bedside. She still complained of coughing but not able to expectorate. SHe admitted to wheezing but denied shortness of breath. Review of systems is otherwise negative. Objective Data Objective Data Vital Signs: Vital Signs Temp Pulse Resp BP Pulse Ox O2 Del Method O2 Flow Rate 97.9 F 77 18 124/88 H 97 Nasal Cannula 2 07/29/25 05:35 07/29/25 07:20 07/29/25 07:20 07/29/25 05:35 07/29/25 07:20 07/29/25 08:03 07/29/25 08:03 Oxygen Flow Rate (L/min) 2 Oxygen Delivery Method Nasal Cannula Weight: 175 lb 4.28 oz Body Mass Index (BMI) 36.6 Intake & Output: Intake and Output for Last 24 Hours 07/27/25 07/28/25 07/29/25 23:59 23:59 23:59 Intake Total 50 / 50 1310 / 1310 100 / 100 Balance 50 / 50 1310 / 1310 100 / 100 Lab / Micro Data 07/29/25 04:48 07/29/25 04:48 Labs: Laboratory Results - last 24 hr 07/28/25 12:00: PT 18.0 H, INR 1.5 07/29/25 04:48: WBC 18.3 H, RBC 3.44 L, Hgb 9.8 L, Hct 31.1 L, MCV 90.4, MCH 28.5, MCHC 31.5 L, RDW Std Deviation 51.4 H, RDW Coeff of [place] 15.7 H, Plt Count 361, MPV 11.4, Immature Gran % (Auto) 0.400, Neut % (Auto) 94.5 H, Lymph % (Auto) 2.1 L, Luna % (Auto) 2.9, Eos % (Auto) 0.0, Baso % (Auto) 0.1, Absolute Neuts (auto) 17.3 H, Absolute Lymphs (auto) 0.38 L, Nucleated RBC % 0, PT 17.7 H , INR 1.4, Sodium 138, Potassium 4.2, Chloride 101, Carbon Dioxide 25.7, Anion Gap 10, BUN 35 H, Creatinine 1.46 H, Estim Creat Clear Calc 28.20 L, Est GFR (MDRD) Non-Af 36 L, BUN/Creatinine Ratio 23.8 H, Glucose 152 H, Calcium 8.9 Micro: Microbiology 07/27/25 01:00 Mucosa - Nasopharyngeal Respiratory Panel (PCR) - Final 07/27/25 01:00 Urine, Clean Catch Legionella Antigen - Final 07/27/25 01:00 Urine, Clean Catch Streptococcus pneumoniae Antigen (M - Final 07/26/25 16:30 Mucosa - Nose SARS-CoV-2, Influenza & RSV (PCR) - Final Physical Exam Const alert, oriented x3 and no apparent distress General Appearance: cooperative HEENT normocephalic, head/scalp atraumatic, moist oral mucous membranes and oropharynx normal Eyes EOMs intact bilaterally Neck supple Lymph Lymphatic: no lymphedema noted Resp Resp Narrative: Mildly diminished breath sounds bibasally, no crackles, bilateral wheezing. On 2L of oxygen by NC Cardio regular rate, regular rhythm, S1 normal heart sound, S2 normal heart sound and no murmurs GI normal to inspection, nondistended, normoactive bowel sounds, soft to palpation, non-tender and non-distended Extremity normal capillary refill, no clubbing, cyanosis or edema and no calf tenderness General Extremity: no tenderness to palpation of joints or extremities Skin General Skin Exam: no breakdown Neuro no focal motor deficits and no sensory deficits noted Motor Exam: general weakness Psych thought process normal, cooperative and affect normal Appearance: appropriate Assessment & Plan Assessment/Plan (1) Pneumonia involving right lung: (2) Asthma exacerbation: PLAN: Plan #Hypoxia due to Community-acquired pneumonia * Patient admitted with a complaint of shortness of breath. Chest x-ray showed bilateral. Bronchial wall thickening seen with interstitial edema or small airways disease and hazy bibasilar opacities likely atelectasis and/or infiltrates. * She is currently on IV ceftriaxone and doxycycline. Urine for strep and Legionella were negative. Breathing treatments bronchodilators. * Titrate oxygen to maintain saturation above 90%. * 2D echo ordered showed EF of 50% with stable appearing bioprosthetic mitral valve (and pulmonary artery systolic pressure 54 mmHg. There was mild global hypokinesis of the left ventricle. * will add on some IV lasix 40mg daily * Swallow evaluation showed mild oropharyngeal dysphagia. Currently on regular textures and thin liquids. * #Afib with RVR * On Tikosyn and on Coumadin. INR is 1.4 today. * Heart rate is poorly controlled and is in A-fib with RVR this morning. Will give a bolus of amiodarone as her blood pressure will not tolerate Cardizem. * 2D echo as above * heart rate still poorly controlled after amiodarone bolus, so cardiology consulted. * #Acute asthma exacerbation: * On IV Solu-Medrol. * Breathing treatments with bronchodilators. * #Elevated Cr: Cr is up to 1.46 today. was 1.36 yesterday. On lasix. Will switch back to PO lasix. #History of A-fib: On Tikosyn. Also on Coumadin. Monitor INR to maintain between 2 and 3. Follows with central office repairer supervisor with on outpatient basis for further management #Hyperlipidemia: On statin #Anxiety and depression: On mirtazapine and venlafaxine as well as sertraline DVT prophylaxis: Already on Coumadin. INR is 1.4 today. Will give an extra dose of PO coumadin 5mg x 1 today, making a total of 10mg. CODE STATUS: DNR CCA no intubation Charges/Coding Visit Charges Inpatient E&M: 25600 Subs Hosp L3
[2025-07-29] MEDS: Amiodarone 150 MG in Dextrose 5%-Water (100mL Bag) 100 ML 600 MG IV BOLUS (10:29)
--- NOTE | 2025-07-29 10:56 | EKG12_ITS ---
Test Reason : POST MEDICATION Blood Pressure : */* mmHG Vent. Rate : 110 BPM Atrial Rate : 110 BPM P-R Int : 166 ms QRS Dur : 74 ms QT Int : 376 ms P-R-T Axes : 69 60 40 degrees QTcB Int : 508 ms Sinus tachycardia Borderline ECG When compared with ECG of 27-Jul-2025 14:17, MANUAL COMPARISON REQUIRED DATA IS UNCONFIRMED Confirmed by Abraham Simpson ([id number]), sound editor BHARGAV SHAW ([id number]) on 07/31/2025 8:44:51 AM Referred By: Confirmed By: Abraham Simpson
--- NOTE | 2025-07-29 11:35 | PCM.CONS.C ---
Assessment & Plan Assessment/Plan (1) Paroxysmal atrial fibrillation: PLAN: She appears to be in atrial fibrillation at this time the duration is unclear however she is on anticoagulation and her recent echocardiogram did demonstrate mild global left ventricular systolic dysfunction. My recommendation at this time be to try and control her rate I will recommend intravenous diltiazem for rate control Continue warfarin Will see how she does in the next few days (2) H/O mitral valve replacement: PLAN: She does have a history of mitral valve replacement with a stable prosthetic mitral valve albeit from 1990. The exact type is not known. The valve gradients appear to be mildly increased but otherwise stable. I do not think that she is a candidate for any intervention at this time. Her ventricular function is surprisingly good. She will continue anticoagulation maintaining INR 2.0-3.0 (3) CHF (congestive heart failure), NYHA class II: PLAN: She appears to have mild congestive heart failure and this may be exacerbating her atrial fibrillation as well. Will attempt to get her on guideline directed medical therapy Will administer 1 dose of IV Lasix later today. Thank you for allowing me to participate in the care of your patient. Please don't hesitate to call if any issues arise. HPI Consult Data Date of Consult: 07/29/25 HPI Narrative HPI Narrative: LORIN GARCÍA, is a 80 F who presented to the hospital a few days ago with shortness of breath malaise mild fever and cough productive of yellowish sputum. She was admitted to the telemetry unit was being monitored. This morning she was noted to be in atrial fibrillation with a rapid ventricular response rate. Her past medical history is unclear because she was following up in the [facility]. It appears that in 1990 she had a mitral valve replacement surgery. It is not clear whether she had any bypass surgery with this. She has been on anticoagulation and also Tikosyn presumably for an atrial tachyarrhythmia. She denies any chest pain per se she has been short of breath she has not had any pedal edema but she does have dyspnea with exertion as well as with rest and with conversation. She did have an echocardiogram performed during this visit which demonstrated ejection fraction of 50% with globally reduced function. Her mitral valve prosthesis appeared to be stable and functioning well. [ ] [facility] Medical History Asthma Hx of gastroesophageal reflux (GERD) High cholesterol Home Medications ?Medication ?Instructions ?Recorded ?Last Taken ?Type atorvastatin 20 mg tablet 20 mg PO DAILY ordered 10/06/23 07/25/25 History cyanocobalamin (vitamin B-12) 1,000 mcg sublingual Q2D ordered 10/06/23 Unknown History 3,000 mcg sublingual lozenge dofetilide 125 mcg capsule 125 mcg PO Q12H ordered 10/06/23 07/26/25 History ferrous sulfate 325 mg (65 mg 325 mg PO DAILY ordered 10/06/23 Unknown History iron) tablet fluconazole 150 mg tablet 150 mg PO DAILY ordered 10/06/23 07/26/25 History furosemide 20 mg tablet 20 mg PO QODAY ordered 10/06/23 07/26/25 History mirtazapine 30 mg tablet 30 mg PO DAILY ordered 10/06/23 07/25/25 History venlafaxine 150 mg 150 mg PO .qam ordered 10/06/23 07/26/25 History capsule,extended release 24 hr warfarin 5 mg tablet 5 mg PO DAILY ordered 10/06/23 07/25/25 History Allergy/AdvReac Type Severity Reaction Status Date / Time adenosine AdvReac Upset Verified 07/26/25 16:11 Stomach Surgical History H/O aortic valve replacement Social History Smoking Status: Never smoker ROS Constitutional Constitutional: Denies fever(s) or weight loss Eyes Eyes: Reports systems reviewed and no addt'l complaints, except as documented ENT HEENT: Reports systems reviewed and no addt'l complaints, except as documented Cardiovascular Cardiovascular: Reports dyspnea at rest and dyspnea on exertion; Denies chest pain at rest, chest pain with activity, edema, palpitations or paroxysmal nocturnal dyspnea Respiratory/Chest Respiratory/Chest: Reports productive cough, shortness of breath at rest and shortness of breath with exertion; Denies dyspnea on exertion Gastrointestinal Gastrointestinal: Denies change in bowel habits, nausea, vomiting or weight changes Genitourinary Genitourinary: Denies difficulty urinating Musculoskeletal Musculoskeletal: Denies joint stiffness or muscle weakness Integumentary Integumentary: Denies lesions Neurologic Neurologic: Denies dizziness or syncope Psychiatric Psychiatric: Denies anxiety Endocrine Endocrinology: Denies excessive sweating or fatigue Hematologic/Lymphatic Hematologic/Lymphatic: Denies anemia Allergic/Immunologic Allergic/Immunologic: Denies seasonal rhinorrhea Physical Exam Const alert and oriented x3 Orientation / Consciousness: awake HEENT normocephalic Eyes PERRL Neck full ROM Carotids: normal carotid upstroke Chest inspection of chest normal Resp Auscultation: diminished lung sounds Cardio Jugular Venous Distention: other Rhythm: abnormal rhythm irregularly irregular Heart Sounds: S1 normal and S2 normal GI normal to inspection, nondistended, normoactive bowel sounds Extremity General Extremity: edema bilateral Objective Data Vital Signs: Vital Signs Temp Pulse Resp BP Pulse Ox O2 Del Method O2 Flow Rate 97.7 F L 139 H 18 103/74 98 Nasal Cannula 2 07/29/25 10:40 07/29/25 10:40 07/29/25 10:40 07/29/25 10:40 07/29/25 10:40 07/29/25 10:40 07/29/25 10:40 Oxygen Flow Rate (L/min) 2 Oxygen Delivery Method Nasal Cannula Weight: 175 lb 4.28 oz Body Mass Index (BMI) 36.6 Intake & Output: Intake and Output for Last 24 Hours 07/27/25 07/28/25 07/29/25 23:59 23:59 23:59 Intake Total 50 / 50 1310 / 1310 203 / 203 Balance 50 / 50 1310 / 1310 203 / 203 Lab / Micro Data 07/29/25 04:48 07/29/25 04:48 Labs: Laboratory Results - last 24 hr 07/28/25 12:00: PT 18.0 H, INR 1.5 07/29/25 04:48: WBC 18.3 H, RBC 3.44 L, Hgb 9.8 L, Hct 31.1 L, MCV 90.4, MCH 28.5, MCHC 31.5 L, RDW Std Deviation 51.4 H, RDW Coeff of [place] 15.7 H, Plt Count 361, MPV 11.4, Immature Gran % (Auto) 0.400, Neut % (Auto) 94.5 H, Lymph % (Auto) 2.1 L, [place] % (Auto) 2.9, Eos % (Auto) 0.0, Baso % (Auto) 0.1, Absolute Neuts (auto) 17.3 H, Absolute Lymphs (auto) 0.38 L, Nucleated RBC % 0, PT 17.7 H, INR 1.4, Sodium 138, Potassium 4.2, Chloride 101, Carbon Dioxide 25.7, Anion Gap 10, BUN 35 H, Creatinine 1.46 H, Estim Creat Clear Calc 28.20 L, Est GFR (MDRD) Non-Af 36 L, BUN/Creatinine Ratio 23.8 H, Glucose 152 H, Calcium 8.9 Micro: Microbiology 07/26/25 19:05 Blood Culture (Wb) - Anticubital Right Blood Culture - Preliminary No growth in 48 hours. 07/26/25 18:45 Blood Culture (Wb) - Anticubital Right Blood Culture - Preliminary No growth in 48 hours. Cardiology Labs/Tests 07/28/25 12:00: PT 18.0 H, INR 1.5 07/29/25 04:48: WBC 18.3 H, RBC 3.44 L, Hgb 9.8 L, Hct 31.1 L, MCV 90.4, MCH 28.5, MCHC 31.5 L, Plt Count 361, MPV 11.4, Immature Gran % (Auto) 0.400, Neut % (Auto) 94.5 H, Lymph % (Auto) 2.1 L, [place] % (Auto) 2.9, Eos % (Auto) 0.0, Baso % (Auto) 0.1, Absolute Neuts (auto) 17.3 H, Nucleated RBC % 0, PT 17.7 H, INR 1.4, Sodium 138, Potassium 4.2, Chloride 101, Carbon Dioxide 25.7, Anion Gap 10, BUN 35 H, Creatinine 1.46 H, Est GFR (MDRD) Non-Af 36 L, BUN/Creatinine Ratio 23.8 H, Glucose 152 H, Calcium 8.9 Rhythm: EKG: ECHO: Stress Test: Cardiac Cath: PCI: CT Surgery: Holter monitor: EPS: PPM: CXR: Chest CT Scan: JEANETTE Risk Score for UA/STEMI Assesmment (YES = 1) Risk Stratification Applicable: No
[2025-07-29] MEDS: Diltiazem 125 MG in Dextrose 5%-Water (100mL Bag) 100 ML 10 MG IV ×2 (12:56→23:56)
[2025-07-29] MEDS: Ceftriaxone 2 GM in 0.9% Normal Saline (50mL MB+) 50 ML IV (20:45)
[2025-07-30] VITALS (19 sets, daily range): BP systolic 106–136; BP diastolic 53–77; PULSE 71–93; RESP 17–22; TEMP 36.5–36.6; O2SAT 95–100; BMI 38.9
--- NOTE | 2025-07-30 00:26 | EKG12_ITS ---
Test Reason : POST TIKOSYN Blood Pressure : */* mmHG Vent. Rate : 119 BPM Atrial Rate : 120 BPM P-R Int : * ms QRS Dur : 74 ms QT Int : 340 ms P-R-T Axes : 92 62 36 degrees QTcB Int : 478 ms Sinus tachycardia with Premature atrial complexes Nonspecific T wave abnormality Abnormal ECG Confirmed by Abraham Simpson ([id number]), field map editor BHARGAV SHAW ([id number]) on 07/31/2025 8:45:37 AM Referred By: SARAH Confirmed By: Abraham Simpson
--- NOTE | 2025-07-30 00:38 | PN.HOSP_ITS ---
Hospitalist Note Patient converted to sinus rhythm. Twelve-lead EKG reviewed. NSR at 79 beats Francke. Currently on Cardizem drip 5 mg/h. Tapered down to 2.5 for 2 to 3 hours and discontinue it. Started on Cardizem CD 120 mg daily. Chlorinator Operator already has been consulted.
[2025-07-30] MEDS: 0.9% Saline Lock 10 ML Syringe IV ×2 (06:04→13:52)
[2025-07-30 06:26] LABS: Hematocrit 32.5 % (37-47); Hemoglobin 10.2 g/dL (12.0-15.0); Immature Granulocytes Count 0.160 X10^3/uL (0.0-0.0); Mean Corp Hgb Conc 31.4 g/dL (32-36); Mean Corpuscular Volume 89.8 fL (81-99); Mean Platelet Vol. 11.2 fl (6.2-12.0); NRBC Flagged by Analyzer 0 % (0-5); POSITIVE DIFFERENTIAL YES; Platelet Count 359 K/mm3 (150-450); RBC Distribution Width CV 15.8 % (11.6-14.6); RBC Distribution Width SD 52.5 fl (35.1-43.9); Red Blood Count 3.62 M/mm3 (4.2-5.4); White Blood Count 20.2 K/mm3 (4.4-11.0)
[2025-07-30 06:39] LABS: Prothrombin Time (Protime)PT. 25.0 SECONDS (11.7-14.9)
[2025-07-30 06:47] LABS: Anion Gap 11 (5-15); BUN 38 mg/dL (4-19); BUN/Creat Ratio 27.7 RATIO (10-20); Calcium,Total 9.4 mg/dL (7.6-11.0); Carbon Dioxide 25.4 mmol/L (21.0-32.0); Chloride 101 mmol/L (98-108); Estimated Creatinine Clearance 30.05 ml/min (50-250); Glucose 170 mg/dL (70-99); Potassium 4.3 mmol/L (3.3-5.1)
[2025-07-30] MEDS: Senna/Docusate Sodium 1 Tablet 2 TABLET PO (08:36)
[2025-07-30] MEDS: Warfarin (PBKC) 5 MG Tablet PO (08:43)
--- NOTE | 2025-07-30 11:59 | CASEMGMT ---
Addendum entered by Yazmin Rios 07/30/25 13:21: SW called the DIL [place] and informed her that the patient will discharge to TCU today. SW attempted to call the son but his phone would not ring. Original Note: Social Work SW notified the patient she can DC today to TCU. SW notified the nurse and the physician knows. JULISSA Reddy
--- NOTE | 2025-07-30 14:49 | DCINST_ITS ---
Discharge Instructions DC O2, CPAP, BIPAP needs Home O2 Discharge instructions: Yes Type of respiratory needs?: Oxygen Oxygen frequency: Continuous Continuous oxygen liters per minute: 2 L Dressing / Incision Discharge Activity: Return to Normal Activity Weight Bearing Status: Full weight bearing Follow Up Care Test Results: Test results from this visit will be discussed in further detail at your follow- up appointment, if applicable. Discharge Plan Admission Admit Date/Time: 07/26/25 20:15 Primary Reason for Your Visit: Community-acquired pneumonia, A-fib with RVR, asthma exacerbation Attending Provider: Jung Guerra Primary Care Provider: Angelita Duffy Consulting Providers: Tl Mart; Jeramie Fernandez; Jada Gooed Discharge Orders/Prescriptions Prescriptions: New ipratropium-albuterol 0.5 mg-3 mg(2.5 mg base)/3 mL Solution For Nebulization 3 ml inhalation 4X/DAY Qty: 0 0RF dofetilide 125 mcg Capsule 125 mcg PO Q12 Qty: 0 0RF doxycycline monohydrate 100 mg Capsule 100 mg PO BID Qty: 0 0RF Rx Instructions: 1 twice a day x 11 doses starting 07/30/2025 diltiazem HCl 120 mg Capsule,Extended Release 24hr 120 mg PO DAILY Qty: 0 0RF furosemide 20 mg Tablet 20 mg PO DAILY Qty: 0 0RF guaifenesin [Mucus Relief ER] 1,200 mg Tablet Extended Release 12hr 1,200 mg PO BID Qty: 0 0RF acetaminophen 325 mg Tablet 650 mg PO Q6H PRN PRN (Reason: Pain 1-10 Or Fever>100.7) Qty: 0 0RF venlafaxine 150 mg Capsule,Extended Release 24hr 150 mg PO DAILY Qty: 0 0RF pantoprazole 40 mg Tablet,Delayed Release (Dr/Ec) 40 mg PO DAILY Qty: 0 0RF warfarin [Jantoven] 5 mg Tablet 5 mg PO DAILY Qty: 0 0RF sertraline 50 mg Tablet 50 mg PO DAILY Qty: 0 0RF prednisone 20 mg tablet 20 mg PO DAILY Qty: 7 0RF Rx Instructions: 1 a day x 7 days starting 07/31/2025, then discontinue Continued atorvastatin 20 mg tablet 20 mg PO DAILY Patient Comments: TAKE 1 TABLET BY MOUTH EVERY DAY cyanocobalamin (vitamin B-12) 3,000 mcg lozenge 1,000 mcg SUBLINGUAL Q2D Patient Comments: DISSOLVE 1 (ONE) TABLET UNDER TONGUE WEEKLY ferrous sulfate 325 mg (65 mg iron) tablet 325 mg PO DAILY Patient Comments: TAKE 1 TABLET BY MOUTH EVERY DAY mirtazapine 30 mg tablet 30 mg PO DAILY Patient Comments: TAKE 1 TABLET BY MOUTH EVERYDAY AT BEDTIME Discontinued dofetilide 125 mcg capsule 125 mcg PO Q12H Patient Comments: TAKE 1 CAPSULE BY MOUTH TWICE A DAY fluconazole 150 mg tablet 150 mg PO DAILY Patient Comments: TAKE 1 TABLET ORALLY ONCE, THEN REPEAT IN 72 HOURS furosemide 20 mg tablet 20 mg PO QODAY Patient Comments: TAKE 1 TABLET BY MOUTH EVERY DAY venlafaxine 150 mg capsule,extended release 24hr 150 mg PO .qam Patient Comments: TAKE 1 CAPSULE BY MOUTH EVERY DAY warfarin 5 mg tablet 5 mg PO DAILY Patient Comments: TAKE 1 TABLET DAILY OR DIRECTED BY PRESCRIBER Referrals / Follow Up: Angelita Duffy, TWILA-C [Primary Care Provider, Internal Medicine]
--- NOTE | 2025-07-30 15:10 | TREXTCAR_ITS ---
Diet Diet Order/Speech Therapy: INPATIENT Hospital Diet / Speech Therapy Order(s) 07/26/25 23:26 Diet: Cardiac - Heart Healthy Food consistency:: Regular Liquid Consistency:: Regular/Thin Routine Orders/Code Status Routine Lab Work: INR (Daily x 5 days, notify attending if INR above 3 or less than 2) Code Status: DNRCC-A (No intubation) DC O2, CPAP, BIPAP needs Home O2 Discharge instructions: Yes Type of respiratory needs?: Oxygen Oxygen frequency: Continuous Continuous oxygen liters per minute: 2 L Therapies Weight Bearing: Full weight bearing Physical Therapy: Eval and Treat Occupational Therapy: Eval and Treat Problem/Diagnosis (1) Pneumonia involving right lung: Status: Acute Code(s): J18.9 - Pneumonia, unspecified organism (2) Asthma exacerbation: Status: Acute Code(s): J45.901 - Unspecified asthma with (acute) exacerbation Plan Final diagnosis: #1 community-acquired pneumonia-organism unknown #2 hypoxia secondary to #1 #3 paroxysmal atrial fibrillation with rapid ventricular response-converted to sinus rhythm #4 exacerbation of chronic asthma #5 hyperlipidemia #6 chronic depression #7 chronic use of anticoagulant (warfarin) Allergies/Procedures Done in Hospital Allergies adenosine Adverse Reaction (Verified 07/26/25 16:11) Upset Stomach Procedures: 2-D Echocardiogram Type of Care/Length of Stay Estimated LOS: Convalescent Care Less Than 30 days Type of Care Needed: Skilled Rehab Potential: Good Prognosis: Good Additional Orders/Day of Discharge H&P will serve as current which was dated: 07/26/25 Day of Discharge: 07/30/25 Discharge Plan Admission Admit Date/Time: 07/26/25 20:15 Primary Reason for Your Visit: Community-acquired pneumonia, A-fib with RVR, asthma exacerbation Attending Provider: Jung Guerra Primary Care Provider: Angelita Duffy Consulting Providers: Tl Mart; Jeramie Fernandez; Jada Goode Discharge Orders/Prescriptions Prescriptions: New ipratropium-albuterol 0.5 mg-3 mg(2.5 mg base)/3 mL Solution For Nebulization 3 ml inhalation 4X/DAY Qty: 0 0RF dofetilide 125 mcg Capsule 125 mcg PO Q12 Qty: 0 0RF doxycycline monohydrate 100 mg Capsule 100 mg PO BID Qty: 0 0RF Rx Instructions: 1 twice a day x 11 doses starting 07/30/2025 diltiazem HCl 120 mg Capsule,Extended Release 24hr 120 mg PO DAILY Qty: 0 0RF furosemide 20 mg Tablet 20 mg PO DAILY Qty: 0 0RF guaifenesin [Mucus Relief ER] 1,200 mg Tablet Extended Release 12hr 1,200 mg PO BID Qty: 0 0RF acetaminophen 325 mg Tablet 650 mg PO Q6H PRN PRN (Reason: Pain 1-10 Or Fever>100.7) Qty: 0 0RF venlafaxine 150 mg Capsule,Extended Release 24hr 150 mg PO DAILY Qty: 0 0RF pantoprazole 40 mg Tablet,Delayed Release (Dr/Ec) 40 mg PO DAILY Qty: 0 0RF warfarin [Jantoven] 5 mg Tablet 5 mg PO DAILY Qty: 0 0RF sertraline 50 mg Tablet 50 mg PO DAILY Qty: 0 0RF prednisone 20 mg tablet 20 mg PO DAILY Qty: 7 0RF Rx Instructions: 1 a day x 7 days starting 07/31/2025, then discontinue Continued atorvastatin 20 mg tablet 20 mg PO DAILY Patient Comments: TAKE 1 TABLET BY MOUTH EVERY DAY cyanocobalamin (vitamin B-12) 3,000 mcg lozenge 1,000 mcg SUBLINGUAL Q2D Patient Comments: DISSOLVE 1 (ONE) TABLET UNDER TONGUE WEEKLY ferrous sulfate 325 mg (65 mg iron) tablet 325 mg PO DAILY Patient Comments: TAKE 1 TABLET BY MOUTH EVERY DAY mirtazapine 30 mg tablet 30 mg PO DAILY Patient Comments: TAKE 1 TABLET BY MOUTH EVERYDAY AT BEDTIME Discontinued dofetilide 125 mcg capsule 125 mcg PO Q12H Patient Comments: TAKE 1 CAPSULE BY MOUTH TWICE A DAY fluconazole 150 mg tablet 150 mg PO DAILY Patient Comments: TAKE 1 TABLET ORALLY ONCE, THEN REPEAT IN 72 HOURS furosemide 20 mg tablet 20 mg PO QODAY Patient Comments: TAKE 1 TABLET BY MOUTH EVERY DAY venlafaxine 150 mg capsule,extended release 24hr 150 mg PO .qam Patient Comments: TAKE 1 CAPSULE BY MOUTH EVERY DAY warfarin 5 mg tablet 5 mg PO DAILY Patient Comments: TAKE 1 TABLET DAILY OR DIRECTED BY PRESCRIBER Referrals / Follow Up: Angelita Duffy, SR [employer] SALES CONSULTANT-C [Primary Care Provider, Internal Medicine] Disposition Disposition (needs filled in before D/C Order can be placed): Retirement Facility
--- NOTE | 2025-07-30 15:13 | DS.PCM_ITS ---
Providers Date of Admission: 07/26/25 Date of Discharge: 07/30/25 Primary Care Physician: OMER Paredes Consultations 07/29/25 10:53 Consult: Cardiology Routine Consulting Provider: Jeramie Fernandez Reason for Consult: afib with RVR EMERGENT Consult: No MD Notified: Yes Date Notified: 07/29/25 Time Notified: 10:53 Method of Notification: Verbal Reason For Visit: PNEUMONIA Diagnosis Discharge Diagnosis (1) Pneumonia involving right lung: Status: Acute Code(s): J18.9 - Pneumonia, unspecified organism (2) Asthma exacerbation: Status: Acute Code(s): J45.901 - Unspecified asthma with (acute) exacerbation Plan Final diagnosis: #1 community-acquired pneumonia-organism unknown #2 hypoxia secondary to #1 #3 paroxysmal atrial fibrillation with rapid ventricular response-converted to sinus rhythm #4 exacerbation of chronic asthma #5 hyperlipidemia #6 chronic depression #7 chronic use of anticoagulant (warfarin) Medications at Discharge Home Medications atorvastatin 20 mg tablet 20 mg PO DAILY ordered 10/06/23 cyanocobalamin (vitamin B-12) 3,000 mcg sublingual lozenge 1,000 mcg sublingual Q2D ordered 10/06/23 ferrous sulfate 325 mg (65 mg iron) tablet 325 mg PO DAILY ordered 10/06/23 mirtazapine 30 mg tablet 30 mg PO DAILY ordered 10/06/23 acetaminophen 325 mg tablet 650 mg (2 x 325 mg) PO Q6H PRN PRN Pain 1-10 Or Fever>100.7 #0 tabs 07/30/25 diltiazem HCl 120 mg capsule,extended release 24 hr 120 mg PO DAILY #0 caps 07/30/25 dofetilide 125 mcg capsule 125 mcg PO Q12 #0 caps 07/30/25 doxycycline monohydrate 100 mg capsule 100 mg PO BID #0 caps 07/30/25 furosemide 20 mg tablet 20 mg PO DAILY #0 tabs 07/30/25 guaifenesin 1,200 mg tablet, extended release 12 hr (Mucus Relief ER) 1,200 mg PO BID #0 tabs 07/30/25 ipratropium 0.5 mg-albuterol 3 mg (2.5 mg base)/3 mL nebulization soln 3 ml inhalation 4X/DAY #0 mL 07/30/25 pantoprazole 40 mg tablet,delayed release 40 mg PO DAILY #0 tabs 07/30/25 prednisone 20 mg tablet 20 mg PO DAILY #7 tabs 07/30/25 sertraline 50 mg tablet 50 mg PO DAILY #0 tabs 07/30/25 venlafaxine 150 mg capsule,extended release 24 hr 150 mg PO DAILY #0 caps 07/30/25 warfarin 5 mg tablet (Jantoven) 5 mg PO DAILY #0 tabs 07/30/25 Weight / BMI Weight Weight: 84.5 kg Body Mass Index (BMI) 38.9 ABG / Lab / Microbiology Data 07/30/25 06:03 07/30/25 06:03 Laboratory: Laboratory Results - last 24 hr 07/30/25 06:03: WBC 20.2 H, RBC 3.62 L, Hgb 10.2 L, Hct 32.5 L, MCV 89.8, MCH 28.2, MCHC 31.4 L, RDW Std Deviation 52.5 H, RDW Coeff of [place] 15.8 H, Plt Count 359, MPV 11.2, Immature Gran % (Auto) 0.800, Neut % (Auto) 93.6 H, Lymph % (Auto) 1.9 L, [place] % (Auto) 3.6, Eos % (Auto) 0.0, Baso % (Auto) 0.1, Absolute Neuts (auto) 18.9 H, Absolute Lymphs (auto) 0.38 L, Nucleated RBC % 0, PT 25.0 H , INR 2.2, Sodium 137, Potassium 4.3, Chloride 101, Carbon Dioxide 25.4, Anion Gap 11, BUN 38 H, Creatinine 1.37 H, Estim Creat Clear Calc 30.05 L, Est GFR (MDRD) Non-Af 39 L, BUN/Creatinine Ratio 27.7 H, Glucose 170 H, Calcium 9.4 Microbiology: Microbiology 07/26/25 19:05 Blood Culture (Wb) - Anticubital Right Blood Culture - Preliminary No growth in 48 hours. 07/26/25 18:45 Blood Culture (Wb) - Anticubital Right Blood Culture - Preliminary No growth in 48 hours. 07/27/25 01:00 Mucosa - Nasopharyngeal Respiratory Panel (PCR) - Final 07/27/25 01:00 Urine, Clean Catch Legionella Antigen - Final 07/27/25 01:00 Urine, Clean Catch Streptococcus pneumoniae Antigen (M - Final 07/26/25 16:30 Mucosa - Nose SARS-CoV-2, Influenza & RSV (PCR) - Final D/C Instructions DC O2, CPAP, BIPAP Needs Home O2 Discharge instructions: Yes Type of respiratory needs?: Oxygen Oxygen frequency: Continuous Continuous oxygen liters per minute: 2 L Discharge Plan Admission Admit Date/Time: 07/26/25 20:15 Primary Reason for Your Visit: Community-acquired pneumonia, A-fib with RVR, asthma exacerbation Attending Provider: Jung Guerra Primary Care Provider: Angelita Duffy Consulting Providers: Tl Mart; Jeramie Fernanedz; Jada Goode Discharge Orders/Prescriptions Prescriptions: New ipratropium-albuterol 0.5 mg-3 mg(2.5 mg base)/3 mL Solution For Nebulization 3 ml inhalation 4X/DAY Qty: 0 0RF dofetilide 125 mcg Capsule 125 mcg PO Q12 Qty: 0 0RF doxycycline monohydrate 100 mg Capsule 100 mg PO BID Qty: 0 0RF Rx Instructions: 1 twice a day x 11 doses starting 07/30/2025 diltiazem HCl 120 mg Capsule,Extended Release 24hr 120 mg PO DAILY Qty: 0 0RF furosemide 20 mg Tablet 20 mg PO DAILY Qty: 0 0RF guaifenesin [Mucus Relief ER] 1,200 mg Tablet Extended Release 12hr 1,200 mg PO BID Qty: 0 0RF acetaminophen 325 mg Tablet 650 mg PO Q6H PRN PRN (Reason: Pain 1-10 Or Fever>100.7) Qty: 0 0RF venlafaxine 150 mg Capsule,Extended Release 24hr 150 mg PO DAILY Qty: 0 0RF pantoprazole 40 mg Tablet,Delayed Release (Dr/Ec) 40 mg PO DAILY Qty: 0 0RF warfarin [Jantoven] 5 mg Tablet 5 mg PO DAILY Qty: 0 0RF sertraline 50 mg Tablet 50 mg PO DAILY Qty: 0 0RF prednisone 20 mg tablet 20 mg PO DAILY Qty: 7 0RF Rx Instructions: 1 a day x 7 days starting 07/31/2025, then discontinue Continued atorvastatin 20 mg tablet 20 mg PO DAILY Patient Comments: TAKE 1 TABLET BY MOUTH EVERY DAY cyanocobalamin (vitamin B-12) 3,000 mcg lozenge 1,000 mcg SUBLINGUAL Q2D Patient Comments: DISSOLVE 1 (ONE) TABLET UNDER TONGUE WEEKLY ferrous sulfate 325 mg (65 mg iron) tablet 325 mg PO DAILY Patient Comments: TAKE 1 TABLET BY MOUTH EVERY DAY mirtazapine 30 mg tablet 30 mg PO DAILY Patient Comments: TAKE 1 TABLET BY MOUTH EVERYDAY AT BEDTIME Discontinued dofetilide 125 mcg capsule 125 mcg PO Q12H Patient Comments: TAKE 1 CAPSULE BY MOUTH TWICE A DAY fluconazole 150 mg tablet 150 mg PO DAILY Patient Comments: TAKE 1 TABLET ORALLY ONCE, THEN REPEAT IN 72 HOURS furosemide 20 mg tablet 20 mg PO QODAY Patient Comments: TAKE 1 TABLET BY MOUTH EVERY DAY venlafaxine 150 mg capsule,extended release 24hr 150 mg PO .qam Patient Comments: TAKE 1 CAPSULE BY MOUTH EVERY DAY warfarin 5 mg tablet 5 mg PO DAILY Patient Comments: TAKE 1 TABLET DAILY OR DIRECTED BY PRESCRIBER Referrals / Follow Up: Angelita Duffy NP-C [Primary Care Provider, Internal Medicine] Disposition Disposition (needs filled in before D/C Order can be placed): [facility]
== END 2025-07-30 16:09 | disposition skilled nursing facility (03) | DRG 194 ==
LOC: ED 20:00 → PCU 21:06
PROVIDERS: Student in an Organized Health Care Education/Training Program; Admitting Provider Internal Medicine; Emergency Provider Emergency Medicine; PCP Nurse Practitioner Family; Visit Provider Internal Medicine
DX: J18.9 Pneumonia, unspecified organism (principal); J45.901 Unspecified asthma with (acute) exacerbation; Z66 Do not resuscitate; I50.9 Heart failure, unspecified; D50.9 Iron deficiency anemia, unspecified; F32.A Depression, unspecified; Z95.2 Presence of prosthetic heart valve; I48.0 Paroxysmal atrial fibrillation; E78.00 Pure hypercholesterolemia, unspecified; K21.9 Gastro-esophageal reflux disease without esophagitis; F41.9 Anxiety disorder, unspecified; Z79.01 Long term (current) use of anticoagulants; R09.02 Hypoxemia; Z79.899 Other long term (current) drug therapy; R79.89 Other specified abnormal findings of blood chemistry
CPT/HCPCS: 36415; 71046; 74230; 80048; 83605; 83735; 83880; 84443; 84484; 85025; 85379; 85610; 87040; 87449; 87631; 87633; 92526; 92610; 92611; 93005; 93306; 94640; 94668; 97116; 97162; 97166; 97530; 97535; 99285; Q9957; A4216; C8929; J0696; J1938

== ENCOUNTER 2025-07-30 16:14 | Inpatient (IN) | payer MEDICARE, SELFPAY ==
[2025-07-30 16:30] VITALS: BP 128/74; PULSE 98; RESP 16; TEMP 36.3; O2SAT 98; BMI 37.3
--- NOTE | 2025-07-30 17:57 | HP.PCM_ITS ---
HPI - General General Date of Admission: 07/30/25 Date of Service: 07/30/25 Chief Complaint: Here for rehabilitation. HPI Narrative LORIN GARCÍA, is a 80 Female who presents with followin07/26/2025 [facility] ED shortness of breath. Short of breath for 2 days, getting worse, constant chest tightness. Cough, rhinorrhea, yellow sputum, EMS gave her albuterol which was helpful. Left chest pain, burning pain, radiating to back. WBC 19.2, D-dimer 0.29, Troponin 24, repeat 25. BNP 1380, Lactate 1.4, covid negative, flu negative, rsv negative. Chest X-ray bilateral infiltrates versus atelectasis. Nebs given, off oxygen, short of breath with any movement, not safe to discharge home. 07/26/2025 Admit [facility]. Ceftriaxone IV, Zithromax IV for pneumonia. Duoneb, Solu-medrol IV, Incentive spirometer, PEP for asthma. Lasix 20mg iv for interstitial edema. 07/27/2025 Echo normal LV size. LVEF 50%. Bioprosthetic mitral valve working normally. PASP 54mm HG. 07/27/2025 Wheezy, on room air, mild tachycardia. Ceftriaxone IV, Doxycycline for pneumonia. Urine antigen for strep negative, Urine antigen for legionella negative. Duoneb, Solu-medrol IV for asthma exacerbation. 07/28/2025 Dry cough. Lasix 40mg iv daily for congestion. ST notes mild dysphagia, regular textures, thin liquids. Duoneb, Solu-medrol IV for asthma exacerbation. Creatinine 1.36, encourage oral fluid intake, trend BMP for acute kidney injury. 07/29/2025 Dry cough, wheezing. Atrial fibrillation with rapid ventricular response, Amiodarone IV bolus given, consult Cardiology. Creatinine 1.46, switch IV Lasix to PO Lasix, monitor BMP. 07/30/2025 Converted to sinus rhythm, Cardizem drip taper, then Cardizem CD 120mg daily. 07/30/2025 Admit to TCU with debility, here for rehabilitation, strengthening, prior to discharge home with family. [facility] Medical History (Updated 07/30/25 @ 18:[address] Prashant Manning MD) Asthma Hx of gastroesophageal reflux (GERD) High cholesterol Home Medications ?Medication ?Instructions ?Recorded ?Last Taken ?Type atorvastatin 20 mg tablet 20 mg PO DAILY ordered 10/0607/25/25 History cyanocobalamin (vitamin B-12) 1,000 mcg sublingual Q2D ordered 10/06/23 Unknown History 3,000 mcg sublingual lozenge ferrous sulfate 325 mg (65 mg 325 mg PO DAILY ordered 10/06/23 Unknown History iron) tablet mirtazapine 30 mg tablet 30 mg PO DAILY ordered 10/0607/25/25 History acetaminophen 325 mg tablet 650 mg (2 x 325 mg) PO Q6H PRN PRN 07/30/25 Unknown Rx Pain 1-10 Or Fever>100.7 #0 tabs diltiazem HCl 120 mg 120 mg PO DAILY heart healt #0 caps 07/30/25 Unknown Rx capsule,extended release 24 hr dofetilide 125 mcg capsule 125 mcg PO Q12 heart health #0 caps 07/30/25 Unknown Rx doxycycline monohydrate 100 mg 100 mg PO BID pna #0 ca ps 07/30/25 Unknown Rx capsule furosemide 20 mg tablet 20 mg PO DAILY heart health #0 tabs 07/30/25 Unknown Rx guaifenesin 1,200 mg tablet, 1,200 mg PO BID cough #0 tabs 07/30/25 Unknown Rx extended release 12 hr (Mucus Relief ER) ipratropium 0.5 mg-albuterol 3 mg 3 ml inhalation 4X/D AY lung health 07/30/25 Unknown Rx (2.5 mg base)/3 mL nebulization #0 mL soln pantoprazole 40 mg tablet,delayed 40 mg PO DAILY GI he alth #0 tabs 07/30/25 Unknown Rx release prednisone 20 mg tablet 20 mg PO DAILY lung health # 7 tabs 07/30/25 Unknown Rx sertraline 50 mg tablet 50 mg PO DAILY mental health #0 07/30/25 Unknown Rx tabs venlafaxine 150 mg 150 mg PO DAILY mental healt h #0 07/30/25 Unknown Rx capsule,extended release 24 hr caps warfarin 5 mg tablet (Jantoven) 5 mg PO DAILY heart he alth #0 tabs 07/30/25 Unknown Rx Allergy/AdvReac Type Severity Reaction Status Date / Time adenosine AdvReac Upset Verified 07/26/25 16:11 Stomach Surgical History (Updated 07/30/25 @ 18:[address] Prashant Manning MD) H/O mitral valve replacement Social History (Updated 07/30/25 @ 18:[address] Prashant Manning MD) household members: family and other details: Lives with son, and daughter in law. Smoking Status: Never smoker alcohol intake: never substance use type: does not use ROS Constitutional Constitutional: Reports weakness; Denies chills, fever(s) or weight gain ENT HEENT: Denies headache(s), nasal congestion or nasal discharge Cardiovascular Cardiovascular: Denies chest pain or palpitations Respiratory/Chest Respiratory/Chest: Denies cough, excessive phlegm production or shortness of breath with exertion Gastrointestinal Gastrointestinal: Denies abdominal pain, nausea or vomiting Genitourinary Genitourinary: Denies dysuria Musculoskeletal Musculoskeletal: Denies joint pain or joint swelling Integumentary Integumentary: Denies rash or wounds Neurologic Neurologic: Denies focal weakness, numbness or tingling Psychiatric Psychiatric: Denies anxiety, auditory hallucinations, depression, homicidal ideation or suicidal ideation Vital Signs Vital Signs Vital Signs: 07/30/25 16:30 Temperature 97.4 F L Temperature Source Temporal Pulse Rate 98 Respiratory Rate 16 Blood Pressure 128/74 H Blood Pressure Mean 92 Blood Pressure Source Monitor Blood Pressure Position Supine Blood Pressure Location Right Arm Pulse Ox 98 Oxygen Delivery Method Nasal Cannula Oxygen Flow Rate (L/min) 2 Weight Weight: 81.102 kg Body Mass Index (BMI) 37.3 Physical Exam Const alert General Appearance: cooperative HEENT normocephalic Eyes PERRL and EOMs intact bilaterally Neck supple, no JVD and no carotid bruits Resp Auscultation: wheezes Cardio regular rate and regular rhythm GI normal to inspection, nondistended, normoactive bowel sounds, non-tender and non-distended Extremity normal capillary refill General Extremity: Negative for edema Skin no rashes or lesions noted General Skin Exam: no breakdown Psych affect normal Appearance: appropriate Assessment & Plan Assessment/Plan (1) Debility: (2) Acute respiratory failure with hypoxia: (3) Pneumonia: (4) Asthma exacerbation: (5) Atrial fibrillation with rapid ventricular response: (6) Acute heart failure with preserved ejection fraction (HFpEF): (7) Acute kidney injury: (8) Hyperlipidemia: (9) Vitamin B12 deficiency: (10) GERD (gastroesophageal reflux disease): (11) Depression: (12) Insomnia: PLAN: Plan 80 year old female with below past medical history hospitalized for acute respiratory failure with hypoxia 2/2 pneumonia/asthma exacerbation, complicated by atrial fibrillation with rapid ventricular response, acute kidney injury, acute HFpEF, admitted to TCU with debility, here for rehabilitation, strengthening, prior to discharge home with family. * Debility - PT/OT. * Pain - Tylenol 1000mg q6 prn pain (1-10). * Bowel - senna/colace 2 tablets bid, Magnesium citrate 300mL po x 1 bottle. * Adult immunization - Administer pneumonia vaccine, covid vaccine, flu vaccine as appropriate. * DVT prophylaxis - Warfarin. * Hyperlipidemia - Atorvastatin 20mg qhs. * Vitamin B12 deficiency - B12 1000mcg qod. * Atrial fibrillation - Diltiazem CD 120mg daily, Tikosyn 125mg q12, Warfarin 5mg daily, monitor INR. * Pneumonia - Doxycycline 100mg bid thru 08/04/2025. * Iron deficiency anemia - Ferrous sulfate 325mg daily. * Chronic HFpEF - Furosemide 20mg daily. * Congestion - Mucinex 1000mg bid. * Asthma - Prednisone 20mg daily thru 08/06/2025, Duoneb 3ml q6h. * GERD - Pantoprazole 40mg daily. The following psychotropic medication was present on admission: Mirtazapine 30mg qhs. Psychotropic medication therapy is indicated for a diagnosis of: Depression/Insomnia. Based on my clinical evaluation, continuation of the medication is necessary at this time. Gradual dose reduction plan (select one): ____ GDR will be attempted. Will monitor patient symptoms and behaviors in response to GDR. __x__ GRD contraindicated. 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 The following psychotropic medication was present on admission: Sertraline 50mg daily. Psychotropic medication therapy is indicated for a diagnosis of: Major Depression. Based on my clinical evaluation, continuation of the medication is necessary at this time. Gradual dose reduction plan (select one): ____ GDR will be attempted. Will monitor patient symptoms and behaviors in response to GDR. __x__ GRD contraindicated. 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 The following psychotropic medication was present on admission: Venlafaxine XR 150mg daily. Psychotropic medication therapy is indicated for a diagnosis of: Major Depression. Based on my clinical evaluation, continuation of the medication is necessary at this time. Gradual dose reduction plan (select one): ____ GDR will be attempted. Will monitor patient symptoms and behaviors in response to GDR. __x__ GRD contraindicated. 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
[2025-07-30 18:24] VITALS: BMI 38.7
[2025-07-30] MEDS: Warfarin (PBKC) 5 MG Tablet PO (18:37)
[2025-07-30] MEDS: Magnesium Citrate 300 ML PO (18:41)
[2025-07-30 19:47] VITALS: PULSE 94; RESP 16
[2025-07-30 19:54] VITALS: PULSE 98; RESP 19; O2SAT 99
[2025-07-30] MEDS: Senna/Docusate Sodium 1 Tablet 2 TABLET PO (21:36)
[2025-07-30] MEDS: 0.9% Saline Lock 10 ML Syringe IV (21:37)
[2025-07-31 01:58] VITALS: PULSE 86; RESP 16
[2025-07-31 05:15] VITALS: PULSE 96; RESP 18; O2SAT 97
[2025-07-31 06:04] LABS: Hematocrit 35.0 % (37-47); Hemoglobin 10.8 g/dL (12.0-15.0); Immature Granulocytes Count 0.140 X10^3/uL (0.0-0.0); Mean Corp Hgb Conc 30.9 g/dL (32-36); Mean Corpuscular Volume 90.2 fL (81-99); Mean Platelet Vol. 11.5 fl (6.2-12.0); NRBC Flagged by Analyzer 0 % (0-5); POSITIVE DIFFERENTIAL YES; Platelet Count 356 K/mm3 (150-450); RBC Distribution Width CV 15.6 % (11.6-14.6); RBC Distribution Width SD 51.5 fl (35.1-43.9); Red Blood Count 3.88 M/mm3 (4.2-5.4); White Blood Count 18.9 K/mm3 (4.4-11.0)
[2025-07-31 06:09] LABS: Anion Gap 8 (5-15); BUN 37 mg/dL (4-19); BUN/Creat Ratio 27.1 RATIO (10-20); Calcium,Total 9.4 mg/dL (7.6-11.0); Carbon Dioxide 27.6 mmol/L (21.0-32.0); Chloride 101 mmol/L (98-108); Estimated Creatinine Clearance 30.37 ml/min (50-250); Glucose 176 mg/dL (70-99); Potassium 4.7 mmol/L (3.3-5.1)
[2025-07-31 06:55] VITALS: PULSE 87; RESP 16; O2SAT 100
--- NOTE | 2025-07-31 08:11 | PHA.CONS_ITS ---
TCU RX Drug Regimen Review Subjective/Objective Subjective/Objective Subjective: TCU admission note. 80 year old female with below past medical history hospitalized for acute respiratory failure with hypoxia 2/2 pneumonia/asthma exacerbation, complicated by atrial fibrillation with rapid ventricular response, acute kidney injury, acute HFpEF, admitted to TCU with debility, here for rehabilitation, strengthening, prior to discharge home with family. Objective: Allergies adenosine Adverse Reaction (Verified 07/26/25 16:11) Upset Stomach Current Medications Generic Name Dose Route Start Last Admin Trade Name Freq PRN Reason Stop Dose Admin Acetaminophen 1,000 mg 07/30/25 18:26 Acetaminophen 500 Mg Tablet PO Q6H PRN PRN Pain Score 1-10 Albuterol/Ipratropium 3 ml 07/30/25 17:15 07/31/25 01:58 Ipratropium/Albuterol Sulfate 3 Ml Ampul.Neb INHALATION 3 ml Q6H.RT BUD Administration Atorvastatin Calcium 20 mg 07/30/25 22:00 07/30/25 21:36 Atorvastatin Calcium 20 Mg Tablet PO 20 mg QHS BUD Administration Cyanocobalamin (Vitamin B12) 1,000 mcg 07/30/25 17:15 07/30/25 18:37 Cyanocobalamin 500 Mcg Tablet PO 1,000 mcg QODAY BUD Administration Diltiazem HCl 120 mg 07/31/25 10:00 Diltiazem Cd 120 Mg Capsule PO DAILY BUD Protocol Dofetilide 125 mcg 07/30/25 22:00 07/30/25 21:35 Dofetilide 125 Mcg Capsule PO 125 mcg Q12 BUD Administration Doxycycline Monohydrate 100 mg 07/30/25 22:00 07/30/25 21:36 Doxycycline 100 Mg Capsule PO 08/04/25 22:01 100 mg BID BUD Administration Ferrous Sulfate 325 mg 07/31/25 12:00 Ferrous Sulfate 325 Mg Tablet PO DAILY@1200 BUD Furosemide 20 mg 07/31/25 10:00 Furosemide 20 Mg Tablet PO DAILY BUD Protocol Guaifenesin 1,200 mg 07/30/25 22:00 07/30/25 21:36 Guaifenesin 1,200 Mg Tablet PO 1,200 mg BID BUD Administration Mirtazapine 30 mg 07/30/25 22:00 07/30/25 21:36 Mirtazapine 30 Mg Tablet PO 30 mg QHS BUD Administration Pantoprazole Sodium 40 mg 07/31/25 10:00 Pantoprazole Sodium 40 Mg Tablet PO DAILY [facility] Prednisone 20 mg 07/31/25 10:00 Prednisone 20 Mg Tablet PO 08/06/25 10:01 DAILY [facility] Senna/Docusate Sodium 2 tablet 07/30/25 22:00 07/30/25 21:36 Senna/Docusate Sodium 1 Tablet PO 2 tablet BID BUD Administration Sertraline HCl 50 mg 07/31/25 10:00 Sertraline 50 Mg Tablet PO DAILY [facility] Sodium Chloride 10 - 40 ml 07/30/25 16:34 07/30/25 21:37 0.9% Saline Lock 10 Ml Syringe IV 10 ml UD PRN Administration SALINE FLUSH Tuberculin PPD 0.1 ml 07/31/25 10:00 Tuberculin,Purif.Prot.Deriv. 50 Tu/Ml Vial ID 07/31/25 10:01 X1 ONE Tuberculin PPD 0.1 ml 08/07/25 10:00 Tuberculin,Purif.Prot.Deriv. 50 Tu/Ml Vial ID 08/07/25 10:01 X1 ONE Venlafaxine HCl 150 mg 07/31/25 10:00 Venlafaxine Xr 150 Mg Capsule PO DAILY [facility] Warfarin Sodium 5 mg 07/30/25 18:00 07/30/25 18:37 Warfarin (Pbkc) 5 Mg Tablet PO 5 mg DAILY@1700 [facility] Administration Problem List Insomnia (Acute) Depression (Acute) GERD (gastroesophageal reflux disease) (Acute) Vitamin B12 deficiency (Acute) Hyperlipidemia (Acute) Acute kidney injury (Acute) Acute heart failure with preserved ejection fraction (HFpEF) (Acute) Atrial fibrillation with rapid ventricular response (Acute) Pneumonia (Acute) Acute respiratory failure with hypoxia (Acute) Debility (Acute) Asthma exacerbation (Acute) Vital Signs Temp Pulse Resp BP Pulse Ox O2 Del Method O2 Flow Rate 97.4 F L 96 18 128/74 H 97 Room Air 2 07/30/25 16:30 07/31/25 05:15 07/31/25 05:15 07/30/25 16:30 07/31/25 05:15 07/31/25 05:15 07/30/25 16:30 Oxygen Flow Rate (L/min) 2 Oxygen Delivery Method Room Air Weight: 81.102 kg Body Mass Index (BMI) 38.7 Sodium 137 mmol/L (133-145) 07/31/25 05:24 Potassium 4.7 mmol/L (3.3-5.1) 07/31/25 05:24 Chloride 101 mmol/L (98-108) 07/31/25 05:24 Carbon Dioxide 27.6 mmol/L (21.0-32.0) 07/31/25 05:24 Anion Gap 8 (5-15) 07/31/25 05:24 BUN 37 mg/dL (4-19) H 07/31/25 05:24 Creatinine 1.37 mg/dL (0.70-1.20) H 07/31/25 05:24 Est GFR (MDRD) Non-Af 39 (>60) L 07/31/25 05:24 BUN/Creatinine Ratio 27.1 RATIO (10-20) H 07/31/25 05:24 Glucose 176 mg/dL (70-99) H 07/31/25 05:24 Assessment/Plan: 1. Pain: acetaminophen 1000 mg PO Q6H PRN pain (1-10). The patient has not required any PRN doses of acetaminophen so far this admission. Please continue to monitor pain levels, PRN medication usage, and LFTs (no recent LFTs documented). 2. Bowel: senna/docusate 2 tablets PO BID. Please continue to monitor for bowel movements (last BM documented on 07/31/25), for constipation and diarrhea. 3. Hyperlipidemia: atorvastatin 20 mg PO QHS. Please continue to monitor lipid levels (no recent lipid levels documented, LFTs (no recent LFTs documented), and for myalgias. 4. Pneumonia: doxycycline 100 mg PO BID through 08/04/25. Please continue to monitor for s/s of pneumonia such as shortness of breath, chest pain, WBC counts (WBC = 18.9 K/mm3 on 07/31/25), for fevers (T = 97.4 F on 07/30/25), chills, and for GI distress with doxycycline administration and for photosensitivity. 5. Atrial fibrillation: diltiazem CD 120 mg PO daily, dofetilide 125 mcg PO BID, warfarin 5 mg PO daily. Please continue to monitor for palpitations, for shortness of breath and fatigue, heart rates (recent range = 71-98 beats/min), for constipation, QTC prolongation (QTC = 533 ms on 07/27/25), potassium levels (K = 4.7 mmol/L on 07/31/25), renal function (serum creatinine = 1.37 mg/dL with creatinine clearance ~ 30 mL/min on 07/31/25), for s/s of stroke, for s/s of bleeding/excessive bruising, and INR levels (INR = 2.2 on 07/30/25). 6. Chronic HFpEF: furosemide 20 mg PO daily. Please continue to monitor for s/s of a CHF exacerbation such as shortness of breath, JVD and edema, for dehydration, renal function (serum creatinine = 1.37 mg/dL with creatinine clearance ~ 30 mL/min on 07/31/25), sodium levels (Na = 137 mmol/L on 07/31/25), potassium levels (K = 4.7 mmol/L on 07/31/25), and calcium levels (Ca = 9.4 mg/dL on 07/31/25). 7. Asthma: prednisone 20 mg PO daily through 08/06/25, ipratropium/albuterol 3mL inhalation Q6H. Please continue to monitor for s/s of asthma exacerbation such as shortness of breath/cough, blood pressures (recent range = 110-136/55-77 mmHg), blood glucose levels (BG = 176 mg/dL on 07/31/25), for GI distress with prednisone administration, and respiratory rates (recent range = 16-22 breaths/min). 8. GERD: pantoprazole 40 mg PO daily. Please continue to monitor for s/s of GERD, for diarrhea that could indicate clostridium difficile infection and for s/s of bone resorption such as fractures. 9. Congestion: guaifenesin 1200 mg PO BID. Please continue to monitor for congestion and cough. 10. Iron deficiency anemia: ferrous sulfate 325 mg PO daily. Please continue to monitor hemoglobin levels (Hgb = 10.8 g/dL on 07/31/25), and iron levels (iron = 48 ug/dL on 07/14/25), as well as for GI distress with iron administration. 11. Vitamin B12 deficiency: cyanocobalamin 1000 mcg PO every other day. Please continue to monitor for s/s of vitamin B12 deficiency. Assessment/Plan for indications treated with psychotropic medications: 1. Depression/insomnia: mirtazapine 30 mg PO QHS. Please see provider note regarding stable/chronic long-term therapy GDR not recommended. Monitor for efficacy including resident symptoms, behaviors and indications of distress. Monitor for insomnia, dizziness, and drowsiness. Monitor for tolerability including mental status, cognition, excessive sleepiness, withdrawal or decreased participation in activities and decline in physical functioning. Maximize use of nonpharmacologic/behavioral interventions to facilitate dose reduction or discontinuation as appropriate. Please evaluate the appropriateness of GDR unless contraindicated. If appropriate, GDR should be attempted in 2 separate quarters within the first year of use or admission to TCU. If GDR attempted, monitor resident symptoms/behaviors. Monitor for drowsiness, dizziness or confusion, appetite and body weight (can cause weight gain), dry mouth, abnormal movements/movement disorders (including akathisia, dyskinesia, acute dystonia or restless leg syndrome), suicidal thoughts or behaviors (Boxed Warning). Monitor for constipation. Last documented BM = 07/31. Monitor lipids as indicated (can increase serum cholesterol and triglycerides). No recent fasting lipid panel. Monitor blood pressure. BP range since admission = recent range = 110-136/55-77 mmHg Monitor for orthostatic hypotension, including postural dizziness, syncope or falls. Check orthostatic vital signs if suspicion of orthostasis. 2. Major depression, sertraline 50 mg PO daily, venlafaxine XR 150 mg PO daily. Please see provider note regarding stable chronic long-term therapy GDR not recommended. Monitor for efficacy including resident symptoms, behaviors and indications of distress. Monitor for depression and SI. Monitor for tolerability including mental status, cognition, excessive sleepiness, withdrawal or decreased participation in activities and decline in physical functioning. Maximize use of nonpharmacologic/behavioral interventions to facilitate dose reduction or discontinuation as appropriate. Please evaluate the appropriateness of GDR unless contraindicated. If appropriate, GDR should be attempted in 2 separate quarters within the first year of use or admission to TCU. If GDR attempted, monitor resident symptoms/behaviors. Monitor for diarrhea, nausea, headache, anxiety or drowsiness, suicidal thoughts or behaviors (Boxed Warning), symptoms of bleeding, symptoms of serotonin syndrome (including agitation, confusion, hyperreflexia, rigidity/myoclonus, tremor, tachycardia, tachypnea), sodium levels (last Na = 137 mmol/L on 07/31/25). Monitor for diarrhea, nausea, appetite/weight loss, anxiety or drowsiness, suicidal thoughts or behaviors (Boxed Warning), symptoms of bleeding, symptoms of serotonin syndrome (including agitation, confusion, hyperreflexia, rigidity/myoclonus, tremor, tachycardia, tachypnea). Monitor blood pressure. BP range since admission = recent range = 110-136/55-77 mmHg. Monitor for orthostatic hypotension, including postural dizziness, syncope or falls. Check orthostatic vital signs if suspicion of orthostasis. Monitior for hepatotoxicity (abdominal pain, nausea, jaundice, dark urine, AST/ALT as clinically indicated). AST/ALT = no recent LFTs documented. Medical chart and medication regimen reviewed. The following medication irregularities or issues were identified: No recommendations for resident at this time. Date Date of Note: 07/31/25
[2025-07-31] MEDS: Tuberculin,Purif.prot.deriv. 50 TU/ML Vial 0.1 ML ID (09:20)
[2025-07-31 09:24] VITALS: BP 150/69; PULSE 99; RESP 17; TEMP 36.2; O2SAT 99
[2025-07-31] MEDS: 0.9% Saline Lock 10 ML Syringe IV (09:28)
[2025-07-31 10:03] LABS: Prothrombin Time (Protime)PT. 37.6 SECONDS (11.7-14.9)
--- NOTE | 2025-07-31 11:22 | CASEMGMT ---
Social Work SW met with patient to complete initial assessment. Introduced self and role. Verified contacts. Patient confirmed code status of DNR-CCA, no intubation. SW educated to Medicare benefit and copay coverage beginning on day 21: 08/19 at $209.50/day. Pt's goal is to return home alone with support from DIL and son. SW concerned about cognitive impairment living alone. Will continue to follow to assist with DC planning. Lilia Zavaleta MANAGER FIELD SERVICES BI REPORT DEVELOPER
--- NOTE | 2025-07-31 14:02 | MDS.RN ---
Entry Tracker and Pain assessment for MDS complete.
[2025-07-31 16:30] VITALS: O2SAT 99
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
[2025-07-31 16:48] VITALS: BMI 85.6
[2025-07-31 19:35] VITALS: PULSE 76; RESP 16
[2025-07-31] MEDS: NYSTATIN 500,000 UNIT/5 ML UDC 500000 UNIT PO (21:11)
[2025-07-31] MEDS: Senna/Docusate Sodium 1 Tablet 2 TABLET PO (21:12)
[2025-08-01] MEDS: NYSTATIN 500,000 UNIT/5 ML UDC 500000 UNIT PO ×4 (05:45→21:10)
[2025-08-01 05:58] VITALS: PULSE 82; RESP 18; O2SAT 97
[2025-08-01 06:17] LABS: Prothrombin Time (Protime)PT. 34.8 SECONDS (11.7-14.9)
[2025-08-01 09:18] VITALS: BMI 38.2
[2025-08-01] MEDS: Senna/Docusate Sodium 1 Tablet 2 TABLET PO ×2 (09:26→21:10)
[2025-08-01 09:27] VITALS: BP 122/66; PULSE 76; RESP 18; TEMP 36.3; O2SAT 97
[2025-08-01 11:23] VITALS: PULSE 81; RESP 20
--- NOTE | 2025-08-01 12:25 | NURSING ---
Heat Treater Helper Note; Activity Asset: Sandy Rivas is independent in her choice of daily activities w/reminders. She prefers at this time to heal in her room and maybe later try group activities. She has a cell phone, reads and family visits. She welcomes the tile erector and therapy dog when available. Staff will remind her of weekly activities and respect her right to say no.
[2025-08-01] MEDS: 0.9% Saline Lock 10 ML Syringe IV (12:59)
--- NOTE | 2025-08-01 16:20 | CHAPLAIN ---
Type of Pastoral Visit ___ Initial Visit _x__ Follow-up Visit ___ On-call Visit ___ General Patient Visit ___ Spiritual Assessment ___ Family Conference ___ Bereavement ___ Rapid Response ___ Code Blue ___ Other (describe below) Pastoral Care Referral From _x__ Patient ___ Family ___ Nurse ___ Physician ___ Case Making Machine Operator ___ Registered Clinical Dietitian _x__ Other (describe below) Sacrament/Intervention ___ Active listening ___ Anointing ___ Alevism ___ Bereavement ___ Communion ___ Corina exploration ___ ___ Life review ___ Prayer ___ Reconciliation ___ Sacrament of Sick ___ Supportive presence ___ Wedding ___ Other (describe below) Pastoral Comments attempted visit with this patient but she had visitors in the room and then she was scheduled for therapy; pt is offered support and concern for the moment but she replies that she is okay for now
[2025-08-01 16:34] VITALS: O2SAT 98
[2025-08-01 19:45] VITALS: PULSE 78; RESP 18; O2SAT 98
[2025-08-02] MEDS: NYSTATIN 500,000 UNIT/5 ML UDC 500000 UNIT PO ×4 (05:18→22:14)
[2025-08-02 06:22] LABS: Prothrombin Time (Protime)PT. 24.0 SECONDS (11.7-14.9)
[2025-08-02 07:25] VITALS: PULSE 86; RESP 17; O2SAT 98
[2025-08-02 09:37] VITALS: BP 137/66; PULSE 80; RESP 16; TEMP 36.3; O2SAT 100
[2025-08-02] MEDS: Senna/Docusate Sodium 1 Tablet 2 TABLET PO ×2 (09:41→22:16)
[2025-08-02 11:07] VITALS: O2SAT 99
--- NOTE | 2025-08-02 12:19 | NURSING ---
INR 2.1 today, new order to restart Jantoven 4mg tonight. pt updated
[2025-08-02] MEDS: Warfarin (PBKC) 4 MG Tablet PO (17:26)
[2025-08-02 19:37] VITALS: PULSE 95; RESP 18; O2SAT 98
[2025-08-02 22:15] VITALS: PULSE 86; RESP 18; O2SAT 96
[2025-08-03] VITALS (7 sets, daily range): BP systolic 115–124; BP diastolic 56–65; PULSE 83–100; RESP 17–19; TEMP 36.4; O2SAT 94–98
[2025-08-03] MEDS: NYSTATIN 500,000 UNIT/5 ML UDC 500000 UNIT PO ×4 (04:51→21:53)
[2025-08-03 09:43] LABS: Prothrombin Time (Protime)PT. 16.8 SECONDS (11.7-14.9)
[2025-08-03] MEDS: Senna/Docusate Sodium 1 Tablet 2 TABLET PO ×2 (09:47→21:53)
[2025-08-03] MEDS: Warfarin (PBKC) 4 MG Tablet PO (16:54)
[2025-08-04] MEDS: NYSTATIN 500,000 UNIT/5 ML UDC 500000 UNIT PO ×4 (06:39→23:02)
[2025-08-04 07:21] VITALS: PULSE 82; RESP 18
[2025-08-04 07:29] LABS: Prothrombin Time (Protime)PT. 19.0 SECONDS (11.7-14.9)
[2025-08-04] MEDS: Senna/Docusate Sodium 1 Tablet 2 TABLET PO ×2 (09:53→23:03)
[2025-08-04 09:59] VITALS: BP 144/61; PULSE 98; RESP 16; TEMP 36.4; O2SAT 93
[2025-08-04 13:42] VITALS: PULSE 88; RESP 18
[2025-08-04] MEDS: Warfarin (PBKC) 4 MG Tablet PO (16:20)
[2025-08-04 18:54] VITALS: PULSE 82; RESP 18
[2025-08-04 23:12] VITALS: O2SAT 97
[2025-08-05] MEDS: NYSTATIN 500,000 UNIT/5 ML UDC 500000 UNIT PO ×4 (06:16→19:35)
[2025-08-05 06:25] VITALS: PULSE 90; RESP 16
[2025-08-05 06:33] LABS: Prothrombin Time (Protime)PT. 18.6 SECONDS (11.7-14.9)
[2025-08-05 07:27] VITALS: PULSE 82; RESP 18; O2SAT 94
--- NOTE | 2025-08-05 09:06 | NURSING ---
Addendum entered by Abeba Webber 08/05/25 11:29: dr rendon notified, new order for abdomen xray & prn tylenol given Original Note: pt c/o LLQ pain, pain with movement, laying and palpation. rates pain 8/10 assisted to BR pt passed gas and voided. denies issues with bowels.
[2025-08-05 09:13] VITALS: BP 129/63; PULSE 93; RESP 16; TEMP 36.2; O2SAT 98
--- NOTE | 2025-08-05 10:00 | NURSING ---
pt off unit to xray of abdomen at this time
--- NOTE | 2025-08-05 10:05 | RAD_ITS ---
PROCEDURE: ABDOMEN SINGLE VIEW 08/05/2025 REASON FOR EXAM: LLQ PAIN TECHNIQUE: Procedure Code: RADABD Modality: DX Procedure: ABDOMEN SINGLE VIEW COMPARISON: None FINDINGS: There is a nonobstructive bowel gas pattern. There is no significant stool burden. There are no abnormal soft tissue calcifications or radiopaque foreign bodies. There are no significant bony abnormalities. There are multiple surgical clips in the pelvis. RAD/Abdomen Single View IMPRESSION: No evidence of acute abdominal pathology. Reading Location: [place] [id number]
[2025-08-05 13:27] VITALS: PULSE 61; RESP 16
--- NOTE | 2025-08-05 15:57 | NURSING ---
dr rendon notified of INR 1.5 today, new order to increase warfarin 45mg tonight.
[2025-08-05 19:33] VITALS: PULSE 88; RESP 16; O2SAT 97
[2025-08-05] MEDS: Senna/Docusate Sodium 1 Tablet 2 TABLET PO (19:36)
--- NOTE | 2025-08-05 19:41 | NURSING ---
Per patient's request, 2200 medications administered at this time.
[2025-08-06] MEDS: NYSTATIN 500,000 UNIT/5 ML UDC 500000 UNIT PO ×4 (05:18→20:04)
[2025-08-06 05:57] LABS: Prothrombin Time (Protime)PT. 21.9 SECONDS (11.7-14.9)
[2025-08-06 07:35] VITALS: PULSE 76; RESP 18
[2025-08-06 08:57] VITALS: BP 124/65; PULSE 84; RESP 18; TEMP 36.1; O2SAT 97
[2025-08-06] MEDS: Senna/Docusate Sodium 1 Tablet 2 TABLET PO ×2 (09:04→20:04)
--- NOTE | 2025-08-06 09:42 | NURSING ---
Prop Sawyer Note; MDS for 08/06/2025 Complete
--- NOTE | 2025-08-06 12:24 | CASEMGMT ---
Social Work SW completed BIMS (05/07) and PHQ-9 (07/19) for MDS assessment. Pt lost her in September, but is close with her son. Pt is prescribed several anti-depressants. Pt denies counseling or adjustments to medications. Lilia Zavaleta CLOUD ENGINEER PRICING LEAD
[2025-08-06 13:35] VITALS: PULSE 81; RESP 19
[2025-08-06 18:59] VITALS: PULSE 88; RESP 16; O2SAT 97
[2025-08-06 20:15] VITALS: PULSE 98; RESP 16; O2SAT 97
[2025-08-07] MEDS: NYSTATIN 500,000 UNIT/5 ML UDC 500000 UNIT PO ×4 (05:43→19:50)
[2025-08-07 05:50] LABS: Hematocrit 33.8 % (37-47); Hemoglobin 10.7 g/dL (12.0-15.0); Immature Granulocytes Count 0.250 X10^3/uL (0.0-0.0); Mean Corp Hgb Conc 31.7 g/dL (32-36); Mean Corpuscular Volume 88.5 fL (81-99); Mean Platelet Vol. 11.0 fl (6.2-12.0); NRBC Flagged by Analyzer 0 % (0-5); Platelet Count 233 K/mm3 (150-450); RBC Distribution Width CV 15.6 % (11.6-14.6); RBC Distribution Width SD 50.4 fl (35.1-43.9); Red Blood Count 3.82 M/mm3 (4.2-5.4); White Blood Count 15.5 K/mm3 (4.4-11.0)
[2025-08-07 06:00] VITALS: PULSE 88; RESP 16; O2SAT 98
[2025-08-07 06:12] LABS: Anion Gap 9 (5-15); BUN 35 mg/dL (4-19); BUN/Creat Ratio 27.4 RATIO (10-20); Calcium,Total 9.1 mg/dL (7.6-11.0); Carbon Dioxide 28.6 mmol/L (21.0-32.0); Chloride 101 mmol/L (98-108); Estimated Creatinine Clearance 31.91 ml/min (50-250); Glucose 92 mg/dL (70-99); Potassium 4.0 mmol/L (3.3-5.1)
[2025-08-07 06:46] VITALS: PULSE 83; RESP 16; O2SAT 95
[2025-08-07 08:13] VITALS: BP 132/65; PULSE 77; RESP 16; TEMP 36.3; O2SAT 95
[2025-08-07] MEDS: Senna/Docusate Sodium 1 Tablet 2 TABLET PO ×2 (08:23→20:55)
[2025-08-07 09:00] VITALS: BMI 36.6
--- NOTE | 2025-08-07 12:50 | RAD_ITS ---
PROCEDURE: CHEST PA AND LATERAL 08/07/2025 REASON FOR EXAM: COUGH. TECHNIQUE: Procedure Code: RADCXR Modality: DX Procedure: CHEST PA AND LATERAL COMPARISON: PA and lateral chest x-ray of 07/26/2025. RAD/Chest PA and Lateral IMPRESSION: A small left pleural effusion is seen, with probable smaller right pleural effu jaki. Compared with the prior study, the right pleural effusion has diminished. No definite pulmonary edema is noted at this time. No focal infiltrate is seen , but underlying chronic lung changes are seen. No pneumothorax is seen. The cardiomediastinal silhouette is stable. Prior sternotomy wires appear unch anged. No interval osseous change is evident. Reading Location: [place] [id number]
[2025-08-07] MEDS: Tuberculin,Purif.prot.deriv. 50 TU/ML Vial 0.1 ML ID (13:17)
[2025-08-07 14:10] VITALS: PULSE 80; RESP 16
[2025-08-07 16:29] VITALS: O2SAT 92
[2025-08-08] MEDS: NYSTATIN 500,000 UNIT/5 ML UDC 500000 UNIT PO ×4 (04:56→20:02)
[2025-08-08 07:20] VITALS: PULSE 82; RESP 18
[2025-08-08 08:06] VITALS: BP 120/74; PULSE 93; RESP 17; TEMP 36.1; O2SAT 95
[2025-08-08] MEDS: Senna/Docusate Sodium 1 Tablet 2 TABLET PO ×2 (08:16→20:01)
--- NOTE | 2025-08-08 09:49 | NURSING ---
Offered covid vaccine, VIS provided. Resident declined.
--- NOTE | 2025-08-08 10:37 | CASEMGMT ---
Social Work IDT met with patient at bedside and son/DIL participated via conference call for care plan meeting. Discussed patient's progress in PT/OT/ST/SN/RDN. Educated to Medicare benefit. Pt does not have a secondary insurance and would have to pay privately for copays beyond day 21 at 08/19. Provided pt/family with written communication of insurance process and copay coverage during stay. Provided pt/family with written communication of insurance process and copay coverage during stay. GAS OPERATOR reports pt's cognitive is moderately impaired and although, pt can be alone at home, recommending multiple daily check-ins and reminders throughout the day for meals and meds, medical alert and family take over meds/finances. Physically, pt is doing well. SW inquired if family can assist. Son and DIL agreed they can accommodate, and can pay privately for copays. Pt voiced she does not want to DC home too soon. Pt does have medical alert already. Family will allow IDT to set DC date - they have no preference. SW to follow up with Team and follow up with pt/family once DC date is set. Lilia Zavaleta ARMOR RECONNAISSANCE VEHICLE CREWMAN SUPERVISOR FRAME SAMPLE AND PATTERN
[2025-08-08 19:40] VITALS: BP 116/80; PULSE 108; RESP 20; TEMP 36.4; O2SAT 95
[2025-08-09] MEDS: NYSTATIN 500,000 UNIT/5 ML UDC 500000 UNIT PO ×4 (05:15→22:25)
[2025-08-09 05:18] VITALS: RESP 16
[2025-08-09 05:58] LABS: Prothrombin Time (Protime)PT. 24.8 SECONDS (11.7-14.9)
[2025-08-09 07:40] VITALS: PULSE 93; RESP 20; O2SAT 95
[2025-08-09 08:20] VITALS: BP 134/69; PULSE 65; RESP 16; TEMP 36; O2SAT 97
[2025-08-09] MEDS: Senna/Docusate Sodium 1 Tablet 2 TABLET PO ×2 (08:26→22:24)
[2025-08-09 11:15] VITALS: O2SAT 97
--- NOTE | 2025-08-09 13:18 | MDS.RN ---
Information for the MDS was obtained from review of the clinical record, interview of resident, staff, and direct observation of resident?s care.
[2025-08-09 13:45] VITALS: PULSE 101; RESP 24
[2025-08-09 19:14] VITALS: PULSE 101; RESP 16
[2025-08-10] VITALS (8 sets, daily range): BP systolic 106–109; BP diastolic 69; PULSE 65–145; RESP 16–18; TEMP 36.5; O2SAT 94–96
[2025-08-10] MEDS: NYSTATIN 500,000 UNIT/5 ML UDC 500000 UNIT PO ×4 (05:04→20:46)
[2025-08-10] MEDS: Senna/Docusate Sodium 1 Tablet 2 TABLET PO ×2 (08:12→20:55)
--- NOTE | 2025-08-10 19:40 | EKG12_ITS ---
Test Reason : DYSRHYTHMIA Blood Pressure : */* mmHG Vent. Rate : 142 BPM Atrial Rate : 284 BPM P-R Int : * ms QRS Dur : 66 ms QT Int : 308 ms P-R-T Axes : * 44 -30 degrees QTcB Int : 473 ms Critical Test Result: High HR Atrial flutter with 2:1 A-V conduction Nonspecific ST and T wave abnormality Abnormal ECG When compared with ECG of 30-Jul-2025 00:08, Atrial flutter has replaced Sinus rhythm Vent. rate has increased by 63 bpm Non-specific change in ST segment in Inferior leads Nonspecific T wave abnormality, worse in Inferior leads Confirmed by Miles Childress ([id number]), news video editor REZA GONSALES ([id number]) on 08/14/2025 11:41:57 AM Also confirmed by Miles Childress ([id number]), news video editor REZA GONSALES ([id number]) on 08/15/2025 10:16:11 AM Referred By: [facility] Confirmed By: Miles Childress
--- NOTE | 2025-08-10 19:50 | NURSING ---
Addendum entered by Hina Ho 08/10/25 22:29: Apical HR 83, patient remains asymptomatic. Presents in bed, gameshow on television, denies requests at this time. Call light in reach Addendum entered by Hina Ho 08/10/25 20:49: Apical HR 101 at this time, patient remains asymptomatic. Original Note: RT reports patient tachycardic. Patient presents sitting upright in recliner, pleasant and talkative, states This happens sometimes. Hx Afib RVR. Patient reports asymptomatic. Bp 109/69, HR 145. EKG performed by RT with result Aflutter with 2:1 AV conduction. EKG sent via secure text to Dr. Manning, currently on Tikosyn, Cardizem, Warfarin (See MAR) Last EKG on 07/30 result sinus tachy with premature atrial complexes. New orders received for Metoprolol 25mg PO x1 dose and monitor HR after. Orders repeated and confirmed by Dr. Manning.
[2025-08-11 00:15] VITALS: PULSE 85; RESP 14
[2025-08-11] MEDS: Senna/Docusate Sodium 1 Tablet 2 TABLET PO ×2 (08:24→22:10)
[2025-08-11 16:00] VITALS: BP 121/71; PULSE 91; RESP 16; TEMP 36; O2SAT 96
[2025-08-11 22:17] VITALS: PULSE 93; RESP 16; O2SAT 98
[2025-08-12 08:15] VITALS: BP 105/61; PULSE 98; RESP 17; TEMP 36.9; O2SAT 97
[2025-08-12] MEDS: Senna/Docusate Sodium 1 Tablet 2 TABLET PO ×2 (08:24→21:26)
--- NOTE | 2025-08-12 20:18 | NURSING ---
Dr. Manning updated via phone call on patient home use of Latanoprost eye drops, new order for Latanoprost eye drops 1 drop each eye at bedtime daily, order verified by read back and acknowledged correct.
--- NOTE | 2025-08-12 20:31 | NURSING ---
Dr. Manning updated via phone call on patient requesting that Routine duoneb be changed to PRN, new order for Duoneb Q6 hour PRN SOB, order verified by read back and acknowledged correct.
[2025-08-12] MEDS: Latanoprost 0.005% 1 Bottle 1 DRP OPHTHALMIC (21:19)
[2025-08-13 06:01] LABS: Prothrombin Time (Protime)PT. 20.7 SECONDS (11.7-14.9)
[2025-08-13 09:24] VITALS: BP 99/62; PULSE 94; RESP 15; TEMP 36.3; O2SAT 94
[2025-08-13] MEDS: Senna/Docusate Sodium 1 Tablet 2 TABLET PO ×2 (09:32→21:07)
[2025-08-13 09:40] VITALS: PULSE 72; RESP 17
--- NOTE | 2025-08-13 10:14 | CASEMGMT ---
Addendum entered by Lilia Zavaleta 08/14/25 13:31: Received call from [facility] and prefers [facility]. SW phoned referral to [facility]. They can accept SOC 08/20 Original Note: Social Work SW spoke with pt at bedside. Informed pt of DC 08/18. Pt agreeable. Issued [facility] and explained appeal rights. Pt denied appeal. IDT recommending HHC and pt agreed. SW provided list of skilled HHC agencies within geographical area, INN with insurance, that include quality and resource data via [employer] guide. Pt to review and discuss with son, then notify this worker of preferences. Pt denies DME needs. Family to transport. Plan: DC home with family support 08/18, C PT/OT/SN/CARLY Zavaleta LOSS PREVENTION AGENT OPTICAL INSTRUMENT ASSEMBLY SUPERVISOR
[2025-08-13 10:25] VITALS: PULSE 94; RESP 17; O2SAT 95
[2025-08-13] MEDS: Warfarin (PBKC) 5 MG Tablet PO (16:32)
--- NOTE | 2025-08-13 19:44 | PCM.DC.SUM ---
Providers Date of Admission: 07/30/25 Primary Care Physician: UBALDO ParedesC Reason For Visit: PNEUMONIA Diagnosis Discharge Diagnosis (1) Debility: Status: Acute Code(s): R53.81 - Other malaise (2) Acute respiratory failure with hypoxia: Status: Acute Code(s): J96.01 - Acute respiratory failure with hypoxia (3) Pneumonia: Status: Acute Code(s): J18.9 - Pneumonia, unspecified organism (4) Asthma exacerbation: Status: Inactive Code(s): J45.901 - Unspecified asthma with (acute) exacerbation (5) Atrial fibrillation with rapid ventricular response: Status: Acute Code(s): I48.91 - Unspecified atrial fibrillation (6) Acute heart failure with preserved ejection fraction (HFpEF): Status: Acute Code(s): I50.31 - Acute diastolic (congestive) heart failure (7) Acute kidney injury: Status: Acute Code(s): N17.9 - Acute kidney failure, unspecified (8) Hyperlipidemia: Status: Acute Code(s): E78.5 - Hyperlipidemia, unspecified (9) Vitamin B12 deficiency: Status: Acute Code(s): E53.8 - Deficiency of other specified B group vitamins (10) GERD (gastroesophageal reflux disease): Status: Acute Code(s): K21.9 - Gastro-esophageal reflux disease without esophagitis (11) Depression: Status: Acute Code(s): F32.A - Depression, unspecified (12) Insomnia: Status: Acute Code(s): G47.00 - Insomnia, unspecified Plan 80 year old female with below past medical history hospitalized for acute respiratory failure with hypoxia 2/2 pneumonia/asthma exacerbation, complicated by atrial fibrillation with rapid ventricular response, acute kidney injury, acute HFpEF, admitted to TCU with debility, here for rehabilitation, strengthening, prior to discharge home with family. Debility - PT/OT. Pain - Tylenol 1000mg q6 prn pain (1-10). Bowel - senna/colace 2 tablets bid, Magnesium citrate 300mL po x 1 bottle. Adult immunization - Administer pneumonia vaccine, covid vaccine, flu vaccine as appropriate. DVT prophylaxis - Warfarin. Hyperlipidemia - Atorvastatin 20mg qhs. Vitamin B12 deficiency - B12 1000mcg qod. Atrial fibrillation - Diltiazem CD 120mg daily, Tikosyn 125mg q12, Warfarin 5mg daily, monitor INR. Pneumonia - Doxycycline 100mg bid thru 08/04/2025. Iron deficiency anemia - Ferrous sulfate 325mg daily. Chronic HFpEF - Furosemide 20mg daily. Congestion - Mucinex 1000mg bid. Asthma - Prednisone 20mg daily thru 08/06/2025, Duoneb 3ml q6h. GERD - Pantoprazole 40mg daily. The following psychotropic medication was present on admission: Mirtazapine 30mg qhs. Psychotropic medication therapy is indicated for a diagnosis of: Depression/Insomnia. Based on my clinical evaluation, continuation of the medication is necessary at this time. Gradual dose reduction plan (select one): ____ GDR will be attempted. Will monitor patient symptoms and behaviors in response to GDR. __x__ GRD contraindicated. 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 The following psychotropic medication was present on admission: Sertraline 50mg daily. Psychotropic medication therapy is indicated for a diagnosis of: Major Depression. Based on my clinical evaluation, continuation of the medication is necessary at this time. Gradual dose reduction plan (select one): ____ GDR will be attempted. Will monitor patient symptoms and behaviors in response to GDR. __x__ GRD contraindicated. 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 The following psychotropic medication was present on admission: Venlafaxine XR 150mg daily. Psychotropic medication therapy is indicated for a diagnosis of: Major Depression. Based on my clinical evaluation, continuation of the medication is necessary at this time. Gradual dose reduction plan (select one): ____ GDR will be attempted. Will monitor patient symptoms and behaviors in response to GDR. __x__ GRD contraindicated. Reason contraindicated: stable chronic assisted use. Medications at Discharge Home Medications atorvastatin 20 mg tablet 20 mg PO DAILY ordered 10/06/23 cyanocobalamin (vitamin B-12) 3,000 mcg sublingual lozenge 1,000 mcg sublingual Q2D ordered 10/06/23 ferrous sulfate 325 mg (65 mg iron) tablet 325 mg PO DAILY ordered 10/06/23 mirtazapine 30 mg tablet 30 mg PO DAILY ordered 10/06/23 dofetilide 125 mcg capsule 125 mcg PO Q12 heart health #0 caps 07/30/25 furosemide 20 mg tablet 20 mg PO DAILY heart health #0 tabs 07/30/25 pantoprazole 40 mg tablet,delayed release 40 mg PO DAILY GI health #0 tabs 07/30/25 sertraline 50 mg tablet 50 mg PO DAILY mental health #0 tabs 07/30/25 venlafaxine 150 mg capsule,extended release 24 hr 150 mg PO DAILY mental health #0 caps 07/30/25 warfarin 5 mg tablet (Jantoven) 5 mg PO DAILY heart health #0 tabs 07/30/25 diltiazem HCl 120 mg capsule,extended release 24 hr 120 mg PO DAILY 30 days #30 caps 08/13/25 latanoprost 0.005 % eye drops 1 drp ophthalmic (eye) QHS #0 mL 08/13/25 Hospital Course Operations None Procedures None Summary of Care Provided Minutes Spent on Discharge: 35 Hospital Course: 80 year old female with below past medical history hospitalized for acute respiratory failure with hypoxia 2/2 pneumonia/asthma exacerbation, complicated by atrial fibrillation with rapid ventricular response, acute kidney injury, acute HFpEF, admitted to TCU with debility, here for rehabilitation, strengthening, prior to discharge home with family. Discharge home with family support 08/18/2025, [facility] PT/OT/SN/SW. Physical Exam Const alert General Appearance: cooperative HEENT normocephalic Eyes PERRL and EOMs intact bilaterally Neck supple, no JVD and no carotid bruits Resp Auscultation: wheezes Cardio regular rate and regular rhythm GI normal to inspection, nondistended, normoactive bowel sounds, non-tender and non-distended Extremity normal capillary refill General Extremity: Negative for edema Skin no rashes or lesions noted General Skin Exam: no breakdown Psych affect normal Appearance: appropriate Weight / BMI Weight Weight: 76.839 kg Body Mass Index (BMI) 36.6 ABG / Lab / Microbiology Data 08/07/25 05:15 08/07/25 05:15 Laboratory: Laboratory Results - last 24 hr 08/13/25 05:20: PT 20.7 H, INR 1.7 Microbiology: Microbiology 08/07/25 17:20 Nasal Secretion SARS-CoV-2 Antigen (Rapid) - Final 08/07/25 05:45 Nasal Secretion SARS-CoV-2 Antigen (Rapid) - Final 08/05/25 06:16 Nasal Secretion SARS-CoV-2 Antigen (Rapid) - Final 08/03/25 04:55 Nasal Secretion SARS-CoV-2 Antigen (Rapid) - Final D/C Instructions Discharge Activity: Return to Normal Activity, May Shower and Use Walker Weight Bearing Status: Weight bearing as tolerated Call your doctor if you observe: Fever of 101 or Higher, Inability to urinate, Inability to have a bowel movement, Shortness of breath, Dizziness, Fainting spells, Swelling in the ankles, Chest pain and Uncontrolled pain DC O2, CPAP, BIPAP Needs Home O2 Discharge instructions: No Additional Instructions: Discharge home with family support 08/18/2025, [facility] PT/OT/SN/SW. Meaningful Use Info Meaningful Use Meaningful Use Diagnoses (Choose all that apply): None applicable Discharge Plan Admission Admit Date/Time: 07/30/25 16:14 Primary Reason for Your Visit: Debility. Attending Provider: Prashant Manning Chi Primary Care Provider: Angelita Duffy Instructions Additional Instructions / Restrictions: Discharge home with family support 08/18/2025, [facility] PT/OT/SN/SW. Discharge Orders/Prescriptions Prescriptions: New latanoprost 0.005 % Drops 1 drp ophthalmic (eye) QHS Qty: 0 0RF diltiazem HCl 120 mg Capsule,Extended Release 24hr 120 mg PO DAILY 30 Days Qty: 30 0RF Continued atorvastatin 20 mg tablet 20 mg PO DAILY Patient Comments: TAKE 1 TABLET BY MOUTH EVERY DAY cyanocobalamin (vitamin B-12) 3,000 mcg lozenge 1,000 mcg SUBLINGUAL Q2D Patient Comments: DISSOLVE 1 (ONE) TABLET UNDER TONGUE WEEKLY ferrous sulfate 325 mg (65 mg iron) tablet 325 mg PO DAILY Patient Comments: TAKE 1 TABLET BY MOUTH EVERY DAY mirtazapine 30 mg tablet 30 mg PO DAILY Patient Comments: TAKE 1 TABLET BY MOUTH EVERYDAY AT BEDTIME dofetilide 125 mcg Capsule 125 mcg PO Q12 Qty: 0 0RF furosemide 20 mg Tablet 20 mg PO DAILY Qty: 0 0RF venlafaxine 150 mg Capsule,Extended Release 24hr 150 mg PO DAILY Qty: 0 0RF pantoprazole 40 mg Tablet,Delayed Release (Dr/Ec) 40 mg PO DAILY Qty: 0 0RF warfarin [Jantoven] 5 mg Tablet 5 mg PO DAILY Qty: 0 0RF sertraline 50 mg Tablet 50 mg PO DAILY Qty: 0 0RF Discontinued ipratropium-albuterol 0.5 mg-3 mg(2.5 mg base)/3 mL Solution For Nebulization 3 ml inhalation 4X/DAY Qty: 0 0RF doxycycline monohydrate 100 mg Capsule 100 mg PO BID Qty: 0 0RF Rx Instructions: 1 twice a day x 11 doses starting 07/30/2025 diltiazem HCl 120 mg Capsule,Extended Release 24hr 120 mg PO DAILY Qty: 0 0RF guaifenesin [Mucus Relief ER] 1,200 mg Tablet Extended Release 12hr 1,200 mg PO BID Qty: 0 0RF acetaminophen 325 mg Tablet 650 mg PO Q6H PRN PRN (Reason: Pain 1-10 Or Fever>100.7) Qty: 0 0RF prednisone 20 mg tablet 20 mg PO DAILY Qty: 7 0RF Rx Instructions: 1 a day x 7 days starting 07/31/2025, then discontinue Referrals / Follow Up: Angelita Duffy, RN [facility] [Primary Care Provider, Internal Medicine] Disposition Disposition (needs filled in before D/C Order can be placed): Home Health Service
[2025-08-13] MEDS: Latanoprost 0.005% 1 Bottle 1 DRP OPHTHALMIC (21:08)
[2025-08-13] MEDS: guaiFENesin 10 ML UDC (200MG/10ML) PO (21:10)
[2025-08-14 05:47] LABS: Hematocrit 33.5 % (37-47); Hemoglobin 10.8 g/dL (12.0-15.0); Immature Granulocytes Count 0.070 X10^3/uL (0.0-0.0); Mean Corp Hgb Conc 32.2 g/dL (32-36); Mean Corpuscular Volume 87.5 fL (81-99); Mean Platelet Vol. 11.0 fl (6.2-12.0); NRBC Flagged by Analyzer 0 % (0-5); Platelet Count 183 K/mm3 (150-450); RBC Distribution Width CV 15.3 % (11.6-14.6); RBC Distribution Width SD 49.4 fl (35.1-43.9); Red Blood Count 3.83 M/mm3 (4.2-5.4); White Blood Count 8.4 K/mm3 (4.4-11.0)
[2025-08-14 06:24] LABS: Anion Gap 8 (7-18); BUN 17 mg/dL (4-19); BUN/Creat Ratio 12.7 RATIO (10-20); Calcium,Total 8.5 mg/dL (7.6-11.0); Carbon Dioxide 25.5 mmol/L (20.0-29.0); Chloride 106 mmol/L (96-106); Estimated Creatinine Clearance 30.86 ml/min (50-250); Glucose 126 mg/dL (70-99); Potassium 3.5 mmol/L (3.5-5.1)
[2025-08-14 09:00] VITALS: BMI 36.3
[2025-08-14 10:03] VITALS: BP 107/58; PULSE 102; RESP 18; TEMP 35.9; O2SAT 96
[2025-08-14] MEDS: Senna/Docusate Sodium 1 Tablet 2 TABLET PO ×2 (10:07→21:41)
[2025-08-14] MEDS: BENZOCAINE/MENTHOL 1 LOZENGE 2 LOZENGE MUCOUS MEM (10:11)
[2025-08-14 14:56] VITALS: PULSE 77; RESP 17; O2SAT 97
[2025-08-14] MEDS: Albuterol IH (6.7 GM) 1 PUFF INHALER 2 PUFF INHALATION (15:00)
[2025-08-14] MEDS: Warfarin (PBKC) 5 MG Tablet PO (16:56)
[2025-08-14] MEDS: Latanoprost 0.005% 1 Bottle 1 DRP OPHTHALMIC (21:39)
[2025-08-14] MEDS: guaiFENesin 10 ML UDC (200MG/10ML) PO (21:42)
[2025-08-15 06:49] VITALS: PULSE 98; O2SAT 97
[2025-08-15 09:09] VITALS: BP 110/55; PULSE 97; RESP 18; TEMP 36.3; O2SAT 96
[2025-08-15] MEDS: Senna/Docusate Sodium 1 Tablet 2 TABLET PO ×2 (09:16→21:50)
--- NOTE | 2025-08-15 13:44 | CASEMGMT ---
Social Work SW completed BIMS (07/07) and PHQ-2 () for MDS assessment. 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
[2025-08-15] MEDS: Warfarin (PBKC) 5 MG Tablet PO (16:56)
[2025-08-15] MEDS: Latanoprost 0.005% 1 Bottle 1 DRP OPHTHALMIC (21:41)
[2025-08-15 21:42] VITALS: BP 97/62; PULSE 98
[2025-08-16 08:24] VITALS: BP 122/74; PULSE 102; RESP 16; TEMP 36.1; O2SAT 97
[2025-08-16] MEDS: Senna/Docusate Sodium 1 Tablet 2 TABLET PO ×2 (08:32→20:18)
[2025-08-16] MEDS: Warfarin (PBKC) 5 MG Tablet PO (17:07)
[2025-08-16] MEDS: Latanoprost 0.005% 1 Bottle 1 DRP OPHTHALMIC (20:20)
[2025-08-16 20:35] VITALS: PULSE 100; RESP 16; O2SAT 97
[2025-08-17 09:12] VITALS: BP 114/58; PULSE 106; RESP 16; TEMP 36.3; O2SAT 95
--- NOTE | 2025-08-17 09:12 | MDS.RN ---
Pain assessment for MDS complete.
[2025-08-17] MEDS: Senna/Docusate Sodium 1 Tablet 2 TABLET PO ×2 (09:16→22:07)
[2025-08-17] MEDS: Warfarin (PBKC) 5 MG Tablet PO (16:46)
[2025-08-17 21:58] VITALS: BP 113/59; PULSE 100
[2025-08-17] MEDS: Latanoprost 0.005% 1 Bottle 1 DRP OPHTHALMIC (22:00)
[2025-08-18 09:11] VITALS: BP 116/66; PULSE 96; RESP 18; TEMP 36.2; O2SAT 98
[2025-08-18] MEDS: Senna/Docusate Sodium 1 Tablet 2 TABLET PO (09:15)
[2025-08-18] MEDS: Warfarin (PBKC) 5 MG Tablet PO (16:32)
[2025-08-18] MEDS: BENZOCAINE/MENTHOL 1 LOZENGE 2 LOZENGE MUCOUS MEM (16:33)
[2025-08-18 16:51] VITALS: BP 118/69; PULSE 79; RESP 16; TEMP 36.6; O2SAT 98
== END 2025-08-18 16:45 | disposition home health service (06) | DRG 193 ==
PROVIDERS: Admitting Provider Family Medicine Geriatric Medicine; PCP Nurse Practitioner Family; Visit Provider Family Medicine Geriatric Medicine
DX: J18.9 Pneumonia, unspecified organism (principal); J96.01 Acute respiratory failure with hypoxia; I50.32 Chronic diastolic (congestive) heart failure; B37.0 Candidal stomatitis; J45.901 Unspecified asthma with (acute) exacerbation; D50.9 Iron deficiency anemia, unspecified; F32.9 Major depressive disorder, single episode, unspecified; Z95.3 Presence of xenogenic heart valve; I48.91 Unspecified atrial fibrillation; E78.00 Pure hypercholesterolemia, unspecified; K21.9 Gastro-esophageal reflux disease without esophagitis; E53.8 Deficiency of other specified B group vitamins; G47.00 Insomnia, unspecified; Z79.899 Other long term (current) drug therapy
CPT/HCPCS: 36415; 71046; 74018; 80048; 85025; 85610; 87811; 92507; 92523; 92526; 92610; 93005; 94640; 97110; 97116; 97162; 97166; 97530; 97535; 97537; 97802; A4216